=== PATIENT | female | born 1955 | race Caucasian/White ===

== ENCOUNTER 2016-08-12 03:49 | Inpatient (IN) | payer OTHER ==
[~2016-08-12] VITALS: Ht 170.2 cm; Wt 77.1 kg
--- NOTE | 2016-08-12 03:50 | NUR ---
61yo FEMALE TO RM 2 VIA AMB FROM HOME FOUND "NOT ACTING RIGHT TONITE BY HER ." ON ARRIVAL--SPEECH SLOW, VERY TEARFUL, STATING "SHE TOOK TOO MUCH WELBRUTRIN TONITE" EVAL BY DR SIMMS IN RM 2
--- NOTE | 2016-08-12 03:53 | ED PSYCHIATRIC COMPLAINT ---
History of Present Illness General Chief Complaint: Psychiatric Related Complaint Stated Complaint: PSYCH EVAL Source: patient, family, EMS Exam Limitations: no limitations Vital Signs & Intake/Output Vital Signs & Intake/Output Vital Signs Date Time Temp Pulse Resp B/P Pulse O2 O2 Flow FiO2 Ox Delivery Rate 08/12 1045 96.4 76 16 110/65 99 Room Air 08/12 0811 98.4 74 18 121/69 99 Room Air 08/12 0400 96.8 94 16 132/79 95 Room Air Allergies Coded Allergies: MDX - Epinephrine (UNKNOWN 01/30/13) MDX - Fluoxetine (UNKNOWN 01/30/13) MDX - Nitrofurantoin (UNKNOWN 01/30/13) Triage Nurses Notes Reviewed? yes Onset: Gradual Duration: hour(s):, waxing and waning Timing: recent history Severity: moderate Associated Symptoms: anxiety, insomnia, depression HPI: 61 yo woman h/o depression, on several medications, was found by this morning with worsening symptoms. Per the medics, she was found tearful and naked, wandering around the house. She presents to the ED tearful, inconsolable, non verbal. (DEMI BRAMBILA,SHARMAINE Jules) Past History Travel History Traveled to [place] past 21 day No Medical History Any Pertinent Medical History? see below for history Psychiatric: depression Surgical History Surgical History: none Psychosocial History What is your primary language Yi Family History Hx Contributory? No (DEMI BRAMBILA,SHARMAINE Jules) Review of Systems Review of Systems Constitutional: Reports: no symptoms. EENTM: Reports: no symptoms. Respiratory: Reports: no symptoms. Cardiovascular: Reports: no symptoms. GI: Reports: no symptoms. Genitourinary: Reports: no symptoms. Musculoskeletal: Reports: no symptoms. Skin: Reports: no symptoms. Neurological/Psychological: Reports: no symptoms. Hematologic/Endocrine: Reports: no symptoms. Immunologic/Allergic: Reports: no symptoms. All Other Systems: Reviewed and Negative (DEMI BRAMBILA,SHARMAINE Jules) Physical Exam Physical Exam General Appearance: well developed/nourished, mild distress Head: atraumatic Eyes: Bilateral: normal appearance, PERRL, EOMI. Ears, Nose, Throat: normal pharynx, normal ENT inspection, hearing grossly normal Neck: normal inspection, supple Respiratory: normal breath sounds Cardiovascular: regular rate/rhythm Gastrointestinal: soft, non-tender Extremities: normal range of motion Neurological/Psychiatric: tearful, alert but minimally responsive to questions due to tearfulness Appearance/Memory/Insight: appropriate appearance Behavoir/Eye Contact/Speech: cooperative Thoughts/Hallucinations: no apparent hallucination Skin: intact, normal color, warm/dry SAD PERSONS SAD PERSONS Response Value Age <19 or >45 years? yes 1 Depression/Hopelessness? yes 2 Previous Attempts/Psych Care yes 1 Rational Thinking Loss? yes 2 Social Support? has support 0 Total 6 SAD PERSONS Done? yes (DEMI BRAMBILA,SHARMAINE Jules) Progress Differential Diagnosis: anxiety, depression, intoxication Plan of Care: Orders Procedure Date/time Status Regular Diet 08/12 L Complete Regular Diet 08/12 D Active Patient Data - inpatient psych 08/12 1246 Active Admit to inpatient psych 08/12 1246 Active Patient Safety Monitor 08/12 0800 Active Add-on Test (ER Only) 08/12 0630 Active Add-on Test (ER Only) 08/12 0557 Active EKG 08/12 0557 Active ACETOMINOPHEN 08/12 043 Complete SALICYLATE 08/12 043 Complete Patient Safety Monitor 08/12 0400 Active ED CRISIS PSYCH CONSULT 08/12 040 Active URINE DRUG SCREEN FOR ER ONLY 08/12 0353 Complete ETHANOL 08/12 0353 Complete CBC WITHOUT DIFFERENTIAL 08/12 353 Complete BASIC METABOLIC PANEL 08/12 035 Complete Vital Signs 08/12 UNK Active Nursing Misc 08/12 UNK Active Alternative Nursing Therapy 08/12 UNK Active Activity/Ambulation 08/12 UNK Active Laboratory Tests 08/12/16 0435: Anion Gap 13, Estimated GFR > 60, BUN/Creatinine Ratio 16.3, Glucose 101 H, Calcium 10.7 H, CBC w Diff NO MAN DIFF REQ, RBC 4.87, MCV 89.9, MCH 30.3, RDW 13.8, MPV 9.1, Gran % 74.6, Lymphocytes % 19.4 L, Monocytes % 5.6, Eosinophils % 0.1, Basophils % 0.3, Absolute Granulocytes 6.8 H, Absolute Lymphocytes 1.8, Absolute Monocytes 0.5, Absolute Eosinophils 0, Absolute Basophils 0, PUBS MCHC 33.7, Salicylates < 1.0, Acetaminophen < 10.0 L, Serum Alcohol < 10.0 08/12/16 043: Urine Opiates Screen < 100.00, Methadone Screen 41, Barbiturate Screen < 60, Ur Phencyclidine Scrn < 6.00, Amphetamines Screen < 100, U Benzodiazepines Scrn 199 , Urine Cocaine Screen < 50, Urine Cannabis Screen < 5.00 7:20 AM Patient signed out to me by Dr. Batista at change of shift. Pending crisis evaluation. 12:47 PM PATIENT ADMITTED TO [facility]. (JAIME MEHTA MD) Initial ED EKG: normal axis, normal intervals, normal p-waves, normal QRS complex, normal sinus rhythm Hand-Off Endorsed To: JAIME MEHTA MD Endorsed Time: 0700 Pending: consult, labs (DEMI BRAMBILA,SHARMAINE Jules) Departure Departure Disposition: STILL A PATIENT Condition: Stable Referrals: DENTON BRAMBILA,TOD Messer (PCP/Family) Referred to [facility] as new patient No Departure Forms: Customer Survey General Discharge Information Comments 08/12/16, 6:30am... more history obtained from ... pt took unknown quantity of wellbutrin sometime last night.... She is unable to disclose how much or when. Her notes that her pill bottles were NOT empty, but that it would be hard to know how much she took specifically. She remains this am tearful, nearly catatonic, with flat affect. acetaminophen, salicylates added to labs. ekg ordered (which is benign).... pt signed out to dr. mehta at 7am. (DEMI BRAMBILA,SHARMAINE Jules) Departure Time of Disposition: 1246 Clinical Impression Primary Impression: Bipolar I disorder depressed with catatonic features Psych Admission Note Psychiatric Admission: I have seen and evaluated BEV ESTRELLA. I have also reviewed all the pertinent lab results and diagnostic results. BEV ESTRELLA will be admitted to our inpatient Psychiatric unit for treatment and care. (JAIME MEHTA MD)
--- NOTE | 2016-08-12 04:20 | NUR ---
PT EXTREMELY TEARFUL.
[2016-08-12 04:48] LABS: ABSOLUTE BASOPHIL COUNT 0 /CUMM (0.0-0.2); ABSOLUTE EOSINOPHIL COUNT 0 /CUMM (0.0-0.7); ABSOLUTE GRANULOCYTE CT 6.8 /CUMM (1.4-6.5); ABSOLUTE LYMPH COUNT 1.8 /CUMM (1.2-3.4); ABSOLUTE MONOCYTE COUNT 0.5 /CUMM (0.10-0.60); BASOPHIL % 0.3 % (0.0-2.0); EOSINOPHIL % 0.1 % (0-5); GRANULOCYTE % 74.6 % (42.2-75.2); HEMATOCRIT 43.8 % (37-47); MEAN CORPUSCULAR HGB 30.3 PG (27.0-31.0); MEAN CORPUSCULAR HGB CONC 33.7 G/DL (33.0-37.0); MEAN CORPUSCULAR VOLUME 89.9 FL (81.0-99.0); MEAN PLATELET VOLUME 9.1 FL (7.4-10.4); PLATELET COUNT 217 /CUMM (130-400); RBC DISTRIBUTION WIDTH 13.8 % (11.5-14.5); RED BLOOD CELL CT 4.87 /CUMM (4.20-5.40); WHITE BLOOD CELL COUNT 9.1 /CUMM (4.8-10.8)
--- NOTE | 2016-08-12 08:00 | NUR ---
MEAL TRAY ORDERED
--- NOTE | 2016-08-12 08:17 | NUR ---
AWAKE, C/O MOUTH FEELING DRY. ASSISTED TO BATHROOM BY PERSONAL BANKER, UNSTEADY ON FEET. STATES HIS MAY HAVE TAKEN OTHER MEDS, (SHE IS ON 4 PSYCH MEIDCATIONS), UNSURE OF AMOUNT. STATES SHE HAS BEEN DEPRESSED SINCE THIS OF HER SON 32 YEARS AGO, PREVIOUS ATTEMPT AT SUIICDE AFTER HIS , DXD WITH POST- DEPRESSION. HAS BEEN SHOLPITALIZED IN MULTIPLE FAICLITIES OVER THE YEARS, TWICE AT [place].
--- NOTE | 2016-08-12 08:54 | NUR ---
ASSISTED TO BATHROOM WITH SPECIAL EDUCATION MATH TEACHER, HAS VAGUE, FALT AFFECT WITH SHUFFLING GAIT.
--- NOTE | 2016-08-12 10:39 | NUR ---
ASOTED TO BATHROOM, PT INCONTINENT OF URINE. IMELDA CARE GIVEN, CHANGED INTO NEW PAPER SCRUB PANTS.
--- NOTE | 2016-08-12 10:40 | NUR ---
PT AND AWARE OF DELAY IN SEEING A CRM MARKETING ANALYST. REQUESTING ADMISSION HERE, DOES NOT WANT PT TRANSFERRED TO ANY OTHER FACILITY.
--- NOTE | 2016-08-12 12:13 | NUR ---
CRISIS CLIIICIAN HERE TO EVALUATE.
--- NOTE | 2016-08-12 13:11 | ED PSYCH CRISIS CONSULTATION ---
Crisis Consult Basic Assessment Date of Consult: 08/12/16 Responsible Person/Accompanied By: Insurance Authorization: Insurance #1: Insurance name: [facility] MEDICARE PLAN Phone number: Policy number: [id number] Group number: Authorization number: ED Provider: Patient's ED Provider: DEMI BRAMBILA,BRIAN Jules Primary Care Physician: Patient's PCP: TOD CHAWLA MD PCP's Current Psychiatrist: Dr. Jameson Gould Chief Complaint: Psychiatric Related Complaint Patient's Quote: "Something stressful happened" Present Illness: 61 year old female BIBA to ED after called 911 last night. Pt's affect is mostly constricted and she is mostly non-verbal except for some delayed brief responses to this crisis clinicians questions. Pt. believes that she has been in the ED for 2 days and said that something stressful happened the night she came to the hospital. Based on the triage note, this seat cover cutter asked pt. if she had taken more Wellbutrin than she was supposed to and the patient nodded "yes". When asked if she was trying to harm herself, pt. began to cry. This seat cover cutter then talked to pt.s who reports that he has seen this presentation before with his , commenting that pt. has been hospitalized twice before on [facility], the last time 3 years ago. Pt's reports that about a month ago, pt. began decompensating, getting "quieter" and paranoid about the neighbors. He said that they are in the process of selling their house and buying a new one because of his 's problems with the neighbors. Pt's reports that last night he and pt. were to go to two different wakes and on the car ride from one wake to the other, pt. stopped talking and then refused to get out of the car at the next wake. Pt's reports that he drove them home and pt. came into the house, but was still not talking. Pt's reports that they went to bed together, but that he woke up at 1:30am and found pt. half-naked and laying on the bathroom floor, talking to herself. Pt.'s reports that pt. has been taking her psychiatric medications as far as he knows. H reports that she does not use alcohol or use drugs. Patient's Address: [address] [place] [address] Other Phone Number: Who Do You Live With? Family Family/Informants Interviewed: (Fish Woodard) Allergies - Coded Allergies: MDX - Epinephrine (UNKNOWN 01/30/13) MDX - Fluoxetine (UNKNOWN 01/30/13) MDX - Nitrofurantoin (UNKNOWN 01/30/13) Laboratory Results: Laboratory Tests 08/12/165: Anion Gap 13, Estimated GFR > 60, BUN/Creatinine Ratio 16.3, Glucose 101 H, Calcium 10.7 H, CBC w Diff NO MAN DIFF REQ, RBC 4.87, MCV 89.9, MCH 30.3, RDW 13.8, MPV 9.1, Gran % 74.6, Lymphocytes % 19.4 L, Monocytes % 5.6, Eosinophils % 0.1, Basophils % 0.3, Absolute Granulocytes 6.8 H, Absolute Lymphocytes 1.8, Absolute Monocytes 0.5, Absolute Eosinophils 0, Absolute Basophils 0, PUBS MCHC 33.7, Salicylates < 1.0, Acetaminophen < 10.0 L, Serum Alcohol < 10.0 08/12/16429: Urine Opiates Screen < 100.00, Methadone Screen 41, Barbiturate Screen < 60, Ur Phencyclidine Scrn < 6.00, Amphetamines Screen < 100, U Benzodiazepines Scrn 199 , Urine Cocaine Screen < 50, Urine Cannabis Screen < 5.00 Past History Past Medical History Psychiatric: depression Past Surgical History Surgical History: 1 Psychosocial History Strengths/Capabilities: Has periods of good functioning, supportive Physical Limitations (Interventions): none known Psychiatric Treatment History Psych Treatment Psychiatric Treatment Yes Inpatient Treatment Yes Outpatient Treatment Yes Location of Treatment IP - [facility]; OP - Dr. Gould Reason for Treatment Bipolar Disorder, Depression, Psychosis Dates of Treatment - 2012; Dr. Gould - current Response to Treatment good Diagnosis by History: Bipolar Disorder Substance Use/Abuse History Drug Use/Abuse Substances Used/Abused No Substance Abuse Treatment Substance Abuse Treatment Past Substance Abuse [place] No Comments: n/a Current Mental Status Mental Status Orientation: Confused Affect: Constricted Speech: Delayed, Mumbled, Soft Neuro-vegetative: Anhedonia, Helpless, Sleep Disturbance Appearance Appearance- Dress/Hygiene: WNL Behaviors Thought Process: Thought Blocking Thought Content: Paranoid Memory: Impaired Insight: Poor SI/HI Risk Assessment Past Suicidal Ideation/Attempts Yes Past Homicidal Ideation/Att: No Current Homicidal Ideation/Attempts No Degree of Intent: unable to assess Danger To: none Gravely Disabled: Inability, Lack of Insight, Poor Impulse Control, Poor Judgment Risk Factors: access to lethal means, high anxiety/distress, history of suicide atmpts, SA/MH hospitalized Lethality Ratin PTSD Checklist PTSD Done? pt unable to participate ED Management Sitter: Yes Restraints: No DSM5/PS Stressors/Medical Prob Diagnosis' (DSM 5, Stressors, Medical): F31.5 - Bipolar I, MRE depressed w/psychotic features; Stressors - moving; Medical - none Current GAF: 24 Comments: Pt is almost non-verbal, deopressed, paranoid, not functioning Departure Disposition Psych Medical Clearance Date: 08/12/16 Medically Cleared at: 0120 Time Started: 1200 Time Ended: 1245 Psychiatrist Consulted: Brina Gipson MD Date Disposition Established: 08/12/16 Time Disposition Established: 1245 Plan for Disposition - Modality: Inpatient Psychiatry Facility: [facility] Contact: TBD Telephone: TBD Rationale for Disposition: Pt is mostly non-verbal and is paranoid and not functioning; pt is gravely disabled. Type of IP Admission: Voluntary Additional Instructions: Admit to [facility] Referrals DENTON BRAMBILA,TOD Messer (PCP/Family)
--- NOTE | 2016-08-12 13:12 | NUR ---
PT MOVED INTO ROOM 13. MEDICATED WITH 0.5MG ATIVAN PER MAR. PT PRESENTS WITH FLAT AFFECT. AT BEDSIDE ENCOURAGING PATIENT TO TAKE MEDICATION. PT COOPERATIVE. LUNCH TRAY ORDERED BY SITTER PT/SPOUSE OFFER NO ADDITIONAL NEEDS/COMPLAINTS.
--- NOTE | 2016-08-12 14:28 | IP CRISIS DIAG ASSESS PSYCH ---
Diagnostic Assessment Basic Assessment Insurance Authorization: Insurance #1: Insurance name: [facility] Phone number: Policy number: [id number] Group number: Authorization number: [id number], authorized by No Jules for 4 days, 08/12/16 - 08/15/16. UR should call back Yue at [phone]. [phone] on or before 08/16/16. Primary Care Physician: Patient's PCP: DENTON BRAMBILA,TOD Messer PCP's Patient's Quote: "Something stressful happened" Present Illness: 61 year old female BIBA to ED after called 911 last night. Pt's affect is mostly constricted and she is mostly non-verbal except for some delayed brief responses to this crisis clinicians questions. Pt. believes that she has been in the ED for 2 days and said that something stressful happened the night she came to the hospital. Based on the triage note, this mr teacher asked pt. if she had taken more Wellbutrin than she was supposed to and the patient nodded "yes". When asked if she was trying to harm herself, pt. began to cry. This mr teacher then talked to pt.s who reports that he has seen this presentation before with his , commenting that pt. has been hospitalized twice before on [facility], the last time 3 years ago. Pt's reports that about a month ago, pt. began decompensating, getting "quieter" and paranoid about the neighbors. He said that they are in the process of selling their house and buying a new one because of his 's problems with the neighbors. Pt's reports that last night he and pt. were to go to two different wakes and on the car ride from one wake to the other, pt. stopped talking and then refused to get out of the car at the next wake. Pt's reports that he drove them home and pt. came into the house, but was still not talking. Pt's reports that they went to bed together, but that he woke up at 1:30am and found pt. half-naked and laying on the bathroom floor, talking to herself. Pt.'s reports that pt. has been taking her psychiatric medications as far as he knows. H reports that she does not use alcohol or use drugs. Patient's Address: [address] [place] [address] Other Phone Number: Who Do You Live With? Family Feel Safe Where You Live? No (pt is paranoid) Feel Safe in Your Relationship Yes Marital Status: Do You Have Children? Yes Ages? 33 Primary Language? Macedonian Language(s) Spoken At Home: Macedonian Family/Informants Interviewed: (Fish Woodard) Allergies - Coded Allergies: MDX - Epinephrine (UNKNOWN 01/30/13) MDX - Fluoxetine (UNKNOWN 01/30/13) MDX - Nitrofurantoin (UNKNOWN 01/30/13) Consequences of Psych Med Use: n/a Comment: n/a Lab Results: Laboratory Tests 08/12/165: Anion Gap 13, Estimated GFR > 60, BUN/Creatinine Ratio 16.3, Glucose 101 H, Calcium 10.7 H, CBC w Diff NO MAN DIFF REQ, RBC 4.87, MCV 89.9, MCH 30.3, RDW 13.8, MPV 9.1, Gran % 74.6, Lymphocytes % 19.4 L, Monocytes % 5.6, Eosinophils % 0.1, Basophils % 0.3, Absolute Granulocytes 6.8 H, Absolute Lymphocytes 1.8, Absolute Monocytes 0.5, Absolute Eosinophils 0, Absolute Basophils 0, PUBS MCHC 33.7, Salicylates < 1.0, Acetaminophen < 10.0 L, Serum Alcohol < 10.0 08/12/16 0430: Urine Opiates Screen < 100.00, Methadone Screen 41, Barbiturate Screen < 60, Ur Phencyclidine Scrn < 6.00, Amphetamines Screen < 100, U Benzodiazepines Scrn 199 , Urine Cocaine Screen < 50, Urine Cannabis Screen < 5.00 Toxicology Screen Completed? Yes Results: negative Symptoms of Use: n/a Past History Past Medical History Medical History: None/Denies Past Surgical History Surgical History non-contributory Abuse/Trauma History Trauma History/Current Trauma: unknown Victim or Perpretator? victim (n/a) Patient's Age at Time of Trauma: 2 Abuse/Trauma Treatment: unk - pt. mostly non-verbal Legal History Current Legal Status: none Have you ever been arrested? No Number of Arrests: [address] Dates: none Radiology Rn n/a Psychosocial History Strengths/Capabilities: Has periods of good functioning, supportive Physical Limitations (Interventions): none known Psychiatric Treatment History Psych Treatment Psychiatric Treatment Yes Inpatient Treatment Yes Outpatient Treatment Yes Location of Treatment IP - [facility]; OP - Dr. Gould Reason for Treatment Bipolar Disorder, Depression, Psychosis Dates of Treatment [facility] - 2012; Dr. Gould - current Response to Treatment good Diagnosis by History: Bipolar Disorder Risk Factors: access to lethal means, high anxiety/distress, history of suicide atmpts, SA/MH hospitalized Substance Use/Abuse History Drug Use/Abuse minimum 12mo Hx Substances Used/Abused No Substance Abuse Treatment Substance Abuse Treatment Past Substance Abuse [place] No Comments: n/a Sexual History Sexually Active Yes # of partners 1 Sexual Orientation Heterosexual Use of Protection Yes Always Sexual Concerns: none Education History Highest Level of Education: not sure Preferred Learning Style: unable to assess Current Mental Status Mental Status Orientation: Confused Affect: Constricted Speech: Delayed, Mumbled, Soft Neuro-vegetative: Anhedonia, Helpless, Sleep Disturbance Appearance Appearance- Dress/Hygiene: WNL Behaviors Thought Process: Thought Blocking Thought Content: Paranoid Memory: Impaired Insight: Poor SI/HI Risk Assessment - Minimum 6mo History- Past Suicidal Ideation/Attempts Yes Current Suicidal Ideation/Att No (unable to assess/pt nonverbal) Past Homicidal Ideation/Att: No Current Homicidal Ideation/Attempts No Degree of Intent: unable to assess Danger To: none Gravely Disabled: Inability, Lack of Insight, Poor Impulse Control, Poor Judgment Risk Factors: access to lethal means, high anxiety/distress, history of suicide atmpts, SA/MH hospitalized Lethality Ratin Needs/Init [place] Plan/Goals: psychiatric/medication eval; indiv, group, family therapy; d/c planning and placement AUDIT-C Questionnaire: AUDIT-C Questionnaire: Response Value ETOH use in the past year Never 0 # drinks typical/day Doesn't Drink 0 6 or > drinks per occasion Never 0 Total 0 DSM5/PS Stressors/Medical Prob Diagnosis' (DSM 5, Stressors, Medical): F31.5 - Bipolar I, MRE depressed w/psychotic features; Stressors - moving; Medical - none Current GAF: 24 Comments: Pt is almost non-verbal, deopressed, paranoid, not functioning
--- NOTE | 2016-08-12 14:42 | NUR ---
PT IN ROOM WITH SPOUSE, EATING FINGER FOOD TRAY AT THIS TIME. SITTER AT DOORWAY.
--- NOTE | 2016-08-12 16:27 | NUR ---
PT MEDICATED PER EMAR. PT NOTED TO HAVE VERY FLAT AFFECT. PT MOVING VERY SLOWLY BUT WAS ABLE TO SIT UP INDEPENDENTLY.
--- NOTE | 2016-08-12 16:33 | NUR ---
REPORT GIVEN TO JANET DÍAZ. DISTRIBUTION CALLED FOR TRANSPORT. SECURITY CALLED TO ESCORT.
[2016-08-12 17:08] VITALS: BP 128/68
--- NOTE | 2016-08-12 18:01 | NUR ---
Pateint admitted to [facility]PS from ED. Patient contricted and quiet during assessment and was present to assist. Patient able to answer some questions with some propting. Patient functional and independent with ADL with tasks but asks for help. PAtient is alert, slow to respond vague. Affect flat. Skin clean dry and intact. Ambulates with slow, steady gait. Patient refused walker. Looking forward to assisting Tameka with mental health.
[2016-08-12] MEDS ORDERED: BUPROPION HCL75 M1 PO (22:02)
[2016-08-12] MEDS ORDERED: MIRTAZAPINE45 M1 PO (22:05)
[2016-08-12] MEDS ORDERED: ABILIFY15 M1 PO (22:09)
[2016-08-12] MEDS ORDERED: ALPRAZOLAM0.5 M4 PO (22:11)
--- NOTE | 2016-08-12 23:36 | History & Physical ---
General Information and HPI MD Statement: I have seen and personally examined BEV ESTRELLA and documented this H&P. The patient is a 61 year old F who presented with a patient stated chief complaint of [medical evaluation]. 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 Then she remembers an episode of overdose for which she was hospitalized, and then starts crying. She does not provide any details about history, ROS. She is admitted for severe depression with worsening symptoms. Allergies/Medications Allergies: Coded Allergies: MDX - Epinephrine (UNKNOWN 01/30/13) MDX - Fluoxetine (UNKNOWN 01/30/13) MDX - Nitrofurantoin (UNKNOWN 01/30/13) Home Med list Alprazolam 0.5 MG TABLET 1 MG PO DAILY ANXIETY (Reported) Aripiprazole (Abilify) 15 MG TABLET 15 MG PO DAILY MOOD STABILITY (Reported) Bupropion HCl 75 MG TABLET 75 MG PO DAILY MOOD STABILITY (Reported) Mirtazapine 45 MG TABLET 15 MG PO DAILY MOOD STABILITY (Reported) Compliance With Home Meds: UNKNOWN Past History Travel History Traveled to [place] past 21 day No Medical History Neurological: NONE EENT: NONE Cardiovascular: NONE Respiratory: NONE Gastrointestinal: NONE Hepatic: NONE Renal: NONE Musculoskeletal: falls Psychiatric: depression Endocrine: NONE Blood Disorders: hemophilia Cancer(s): NONE [employer] HOME/Reproductive: NONE Isolation History: Standard Pneumonia Vaccine: 05/15/16 Influenza Vaccine: 05/15/16 Surgical History Surgical History: none Past Family/Social History Psychosocial History Past Psychosocial History Unobtainable at this time Functional Ability ADLs Independent: dressing, eating, toileting, bathing. Ambulation: independent Review of Systems Review of Systems Constitutional: Denies: see HPI. EENTM: Denies: see HPI. Cardiovascular: Denies: see HPI. Respiratory: Denies: see HPI. GI: Denies: see HPI. Genitourinary: Denies: see HPI. Musculoskeletal: Denies: see HPI. Skin: Denies: see HPI. Neurological/Psychological: Denies: see HPI. Hematologic/Endocrine: Denies: see HPI. Exam & Diagnostic Data Last 24 Hrs of Vital Signs/I&O Vital Signs Date Time Temp Pulse Resp B/P Pulse O2 O2 Flow FiO2 Ox Delivery Rate 08/12 1708 98.0 77 128/68 08/12 1627 98.0 84 18 127/65 95 08/12 1045 96.4 76 16 110/65 99 Room Air 08/12 0811 98.4 74 18 121/69 99 Room Air 08/12 0400 96.8 94 16 132/79 95 Room Air Intake & Output 08/12 0000 08/12 0800 08/12 1600 Intake Total Output Total 400 Balance -400 Output, Urine 400 Patient 77.111 kg Weight Physical Exam General Appearance Alert, Oriented X3, Cooperative Skin No Rashes, No Breakdown HEENT Atraumatic, PERRLA, EOMI Neck Supple, No JVD, No thryomegaly, +2 Carotid Pulse wo Bruit Lymphatic Cervical nl Cardiovascular Regular Rate, Normal S1, Normal S2, No Murmurs, Gallops Lungs Clear to Auscultation, Normal Air Movement Abdomen Normal Bowel Sounds, Soft, No Tenderness, No Hepatospenomegaly, No Masses Neurological Exam Findings: Normal Gait, Normal Speech, Strength at 5/5 X4 Ext, Normal Tone, Sensation Intact, Cranial Nerves 3-12 NL, Reflexes 2+ Cranial Nerves II through XII: Examined and intact Extremities No Clubbing, No Cyanosis, No Edema, Normal Pulses, No Tenderness/ Swelling Vascular Normal Pulses, Pulses Symmetrical Last 24 Hrs of Labs/Krunal: Laboratory Tests 08/12/165: Anion Gap 13, Estimated GFR > 60, BUN/Creatinine Ratio 16.3, Glucose 101 H, Calcium 10.7 H, CBC w Diff NO MAN DIFF REQ, RBC 4.87, MCV 89.9, MCH 30.3, RDW 13.8, MPV 9.1, Gran % 74.6, Lymphocytes % 19.4 L, Monocytes % 5.6, Eosinophils % 0.1, Basophils % 0.3, Absolute Granulocytes 6.8 H, Absolute Lymphocytes 1.8, Absolute Monocytes 0.5, Absolute Eosinophils 0, Absolute Basophils 0, PUBS MCHC 33.7, Salicylates < 1.0, Acetaminophen < 10.0 L, Serum Alcohol < 10.0 08/12/16 0430: Urine Opiates Screen < 100.00, Methadone Screen 41, Barbiturate Screen < 60, Ur Phencyclidine Scrn < 6.00, Amphetamines Screen < 100, U Benzodiazepines Scrn 199 , Urine Cocaine Screen < 50, Urine Cannabis Screen < 5.00 Assessment/Plan Assessment: 61 F, admitted for severe depression and bipolar disorder. Patient is not providing much in details. From review of charts, patient does not appear to have any major medical problems. Even though patient mentions that she may be pre-diabetic, and on diet control only. Random blood sugar in acceptable range. She has history of hospitalization and intubation for overdose. #1 severe depression: Agree with psychiatrist As Ranked By This Provider Problem List: 1. Depression 2. Bipolar I disorder depressed with catatonic features Miscellaneous Miscellaneous Documentation Attending Case Discussed With: MAMIE BRAMBILA,SHARMAINE Primary Care Physician: DENTON BRAMBILA,TOD Messer Patient sees these Specialists psychiatrist Level of Patient Care: SUKHI Pacheco
--- NOTE | 2016-08-13 06:16 | Admission Certification ---
Admission Certification Certification Statement - As attending physician, I certify that at the time of - admission, based on clinical presentation, severity of - symptoms, need for further diagnostic testing and - therapeutic interventions, and risk of adverse outcomes - without in-hospital treatment, in my clinical assessment, - this patient requires an acute hospital stay for a minimum - of two nights or longer. I have also considered psychsocial - factors such as support system, advanced age, financial - issues, cognitive issues, and failed out-patient treatments, - past re-admission history, safety of patient, and lack of - compliance as applicable. Specific rationale supporting this admission is: major depression
[2016-08-13 07:48] VITALS: BP 127/74
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
[2016-08-13 12:20] VITALS: BP 130/78
--- NOTE | 2016-08-13 12:20 | NUR ---
Pt is present in the community, alert and orinted X 4, compliant with medication and group therapies. Pt has been solitary/Reclusive in the community, appears very depressed. Pt request to meet with [place] Supervisor who met with her today, she affirms the meeting was successful and re-assuring. Vital sign is stable and within the acceptable range, pt denies thought of self-harm and to someone else.
--- NOTE | 2016-08-13 14:35 | CPS MD/APRN INITIAL ASSE PSYCH ---
Psychiatric Admission Dental Office Coordinator's Note Reviewed: Yes Patient Seen and Examined: Yes Identifying Information: 61 yo MWF with bipolar d/o admitted on 08/12/16, referred by ER. Chief Complaint: Likely overdosed with Wellbutrin. Possibly appeared catatonic. Decline in mood and functioning. Reaction to Hospitalization: Feels very good about being here. History of Present Illness Onset of Illness: Bipolar d/o dx'd ~age 21. Worse this episode x 2 months. Circumstances Leading to Admission: called 911. Patient was minimally verbal when first seen by crisis. Likely overdosed with Wellbutrin MICROBIOLOGICAL LAB TECHNICIAN. reported patient began to decompensate about 1 month ago, at which point she became quiet and paranoid about the neighbor(s). The couple is moving, reportedly in part related to patient's feeling about the neighbor(s). The couple planned to attend 2 wakes on the night of 08/11/16 but patient refused to get out of the car for the second wake. Problem(s) Justifying Need for Admission: Psychosis. Decreased functioning. Other HPI: Patient rerports that for like 2 months, she has been a little bit lazy. Was crocheting for kids. Thinks that she sat too much and wasn't exercising or taking much interest in anything else. Gained a little weight. Stopped taking one of her medications, she thinks Remeron, because she was feeling too groggy. Reports that she has a lot of stress in her life, probably too much. 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 Patient and her had 2 wakes to attend on 08/11/16, one for her 's cousin, who had saved from drowning, and the other for brother's ex- 's father. Patient reports that she and her are moving to a [facility], as she has had problems with current neighbor and there is not enough privacy at her present home. Reports that sometimes patient sees things that give her paranoia about people. She feels that people talk about her and she goes into a paranoid state. Nurse reports that the patient doesn't want to talk much but is talking. Appearing solemn. Ate and slept. Past Psychiatric History Past Diagnosis(es)- if any: Bipolar d/o with psychosis. Past Precipitating Factors- if any: Reportedly marital problems (per old records). - Include inpatient and outpatient treatment Treatment History: Sees Dr. Jameson Gould. Past tx at [facility]. Inpatient 7-10x, including [facility] x 2, [facility] 2-3x, [facility]. History of Suicide Attempts or Gestures Patient reports this was her 4th suicide attempt. Substance Abuse History: Denies tobacco. Occ. alcohol, 1 sip of beer 2x/month. No drugs. Allergies: Coded Allergies: MDX - Epinephrine (UNKNOWN 01/30/13) MDX - Fluoxetine (UNKNOWN 01/30/13) MDX - Nitrofurantoin (UNKNOWN 01/30/13) Home Med List: Wellbutrin 75 mg daily. Xanax prn. Abilify 15 mg qhs. Remeron 45 mg qhs. Past tx with Depakote, she believes, made her sedated. She believe lithium made her unable to hear/understand what others were saying. - Include any medical condition(s) that may - impact the patient's recovery/remission Past Medical History: Borderline DM, diet-controlled. Varicose veins on legs. Past History Medical History Neurological: NONE EENT: NONE Cardiovascular: NONE, Reports varicose veins on legs. Respiratory: NONE Gastrointestinal: NONE Hepatic: NONE Renal: NONE Musculoskeletal: falls Psychiatric: depression Endocrine: NONE, Reports borderline DM, diet-controlled. Blood Disorders: hemophilia Cancer(s): NONE DRAFTER SEISMOGRAPH/Reproductive: NONE Isolation History: Standard Pneumonia Vaccine: 05/15/16 Influenza Vaccine: 05/15/16 Surgical History Surgical History: non-contributory Psychiatric Family/Social Hx Family History Psychiatric Illness: Mother, depression, not in tx. Substance Use: Denies. Suicides: Denies. Social History Living Situation: Lives with in [place]. The couple is moving to a [facility]. Significant Relationships (family/friends): . Has 1 son and 2 grandchildren. 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 Legal: One arrest for incident with neighbor. Harassment charge that became a felony. Spent a brief time in alf. Healthly Behaviors Screening Tobacco Screening Tobacco Use from ED Docu: Never used - If tobacco counseling indicated - the following topics are required. - #1 Recognizing dangerous situations. - #2 Coping Skills. - #3 Basic information about quitting. Status of Tobacco Cessation Counseling: N/A B/C NO TOB USE Cessation Med Status: No Tobacco Use last 30d Alcohol Screening - ETOH screen POS if BAL >=80 or Audit-C>= M4/F3 Audit-C Score from Diag Assess: 0 Blood Alcohol Level: Laboratory Tests 08/12 435 Toxicology Serum Alcohol (<10 MG/DL) < 10.0 Alcohol Use Screening Results: Neg per Audit C &/or BAL - If ETOH counseling indicated - the following topics are required. - #1 Express concern about the patient's - drinking at unhealthy levels, include informing - of national norms for moderate drinking: - men <= 14 drinks/week, max 4 drinks/occasion - women <= 7 drinks/week, max 3 drinks/occasion - #2 Providing feedback, including linking alcohol to - negative physical effects (liver injury, hypertension) - negative emotional effects (relationship problems and - depression) - negative occupational consequences (reduced work - performance) - #3 Advising the patient to abstain from alcohol or - to drink below national norms for moderate drinking - (as listed above). Status of ETOH Use Counseling: N/A B/C NO ETOH Use Metabolic Screening - Screen if on a Neuroleptic Medication - Metabolic screening should include: - Blood Pressure, BMI, Glucose or Hgb A1c, & a - Lipid profile from within the past 365 days. Metabolic Screening Lab () Not Applicable, patient not on a neuroleptic. OR () Patient on a neuroleptic(s) . Enter below results for Glucose or Hemoglobin A1C, and lipid panel if obtained during the last 365 days. BMI: 26.600 Blood Pressure: 130/78 Laboratory Results (If applicable): Lab Glucose 101 mg/dL H 08/12/16 0435 Exam and Plan Mental Status Examination Ambulation Status: Ambulatory, currently sitting in a chair. Appearance: Casually dressed, overweight WF. Attitude towards examiner: Polite and cooperative. Psychomotor activity: Mild psychomotor retardation. Not agitated. Behavior: WNL. Unremarkable. Quality of speech: Soft-spoken. Somewhat slow to give answers. Affect: Calm, blunted to depressed. Mood: "Very good, I'm just a little bit groggy." Appears A&A. Sad ~5/10. Anxiety "maybe a 3"/10. Reports that she can get euphoric at times. Denies feeling hopeless, helpless or worthless. Feels guilty and became tearful when discussing this. Guilty is for things she may have done. Thought she was up in a cloud and that she called the police. Also believes she causes a ruckus. Suicidal Ideation: Believes that she OD'd with Wellbutrin, but vague, MICROBIOLOGICAL LAB TECHNICIAN. Denies active and passive SI now. Homicidal Ideation: Denies. Hallucinations: Had AHs at times at home MICROBIOLOGICAL LAB TECHNICIAN but not here. Denies VHs. Paranoid/Delusional Material: Denies PI now. Denies magical macias. Difficulties with thought organization: Slowed but organized. Insight: Limited. Judgment: Poor but improving. Orientation: Ox3. Cognition: Slowed. Memory Function: Grossly WNL. Estimate of intellectual functioning: Average. Assets/Strengths Patient Identified Assets/Strengths: Outgoing, whereas she used to be introverted. Impression/Plan Impression and Plan: Patient presents with exacerbation of her illness in the context of multiple stressors. - Include all active medical diagnosis that require tx DSM 5 Diagnosis(es): Bipolar d/o, depressed, with psychotic features. - Initial Tx Plan for Active Psych & Medical Conditions Treatment Plan: Monitor for safety, psychosis and mood disorder. Additional information is needed from collaterals. 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 Will now reduce dose to 0.5 mg b.i.d. I increased Abilify to 20 mg qhs. I continued Remeron at 45 mg qhs. I have stopped Wellbutrin, which patient reportedly overdose on. Consider addition of VPA or CBZ. - Factors that would help patient function - in a less restrictive setting. Factors: Not suicidal. Not psychotic.
[2016-08-13 15:44] VITALS: BP 116/72
[2016-08-13 20:14] VITALS: BP 132/73
--- NOTE | 2016-08-13 22:21 | NUR ---
Pt mood is stable flat on her affect, little confusion was observed during the shift. Pt is compliant and cooperative with the staff. Vital signs are stable appetite is good. Will continue to monitor the pt overnight.
[2016-08-14 07:45] VITALS: BP 125/70
[2016-08-14 12:10] VITALS: BP 119/75
--- NOTE | 2016-08-14 13:49 | NUR ---
PT IS COMPLIANT AND COOPERATIVE. PT IS OUT IN COMMUNITY INTERACTING WELL WITH OTHERS. PT IS A LITTLE QUIET WITH STAFF AND DURING GROUP BUT IS SOICAL WITH PEERS. PT DID ATTEND BOTH GROUPS TODAY. PT MOOD IS STABLE WTIH A FLAT AFFECT. PT DENIES SI
--- NOTE | 2016-08-14 14:04 | SOCIAL WORKER PROG NOTE PSYCH ---
Social Work Progress Note Progress Note Pt is calm, reports there has been some med changes and she is sleepy/ She spoke about her grandchildren and how it may be too much to watch them all the days of the week, and that she had a conversation with her son to discuss a change of her availibility.Pt is future focused on upcoming move to [place], and she told a story about hair color. I made a call to her inquiring about setting up a family meeting.
--- NOTE | 2016-08-14 14:15 | CP SOUTH PROGRESS NOTE PSYCH ---
Psych (Inpt) Progress Note Progress Note Include the following elements, when applicable: Involvement in the active treatment of the patient with behavioral observations of the patient and the patient's response to the treatment. Review of the ongoing treatment process in the context of the treatment plan. Indication of how multi-disciplinary staff members are carrying out the treatment plan. Plans for future interventions and recommendations for revision of the treatment plan. Liaison with other physicians/providers. Progress Note: Case and treatment plan discussed in team meeting. Staff reports that the patient seemed lost and somewhat confused. Wandered into others' rooms. Has needed redirection. Went to group. Not looking paranoid. Denying suicidal ideation. Vague and somewhat withdrawn. Patient seen at 11:20 AM. States she feels awful, that she cannot even think straight. Despite this, patient's thinking seems faster than yesterday. She seems a little distraught and perplexed, although I did see her smile once. States she feels too sedated. She appears awake and alert, maybe a little subdued. Reports she had a good visit with and friend. Affect is calm and depressed. Mood is sad at 8/10. States she hardly has any anxiety, maybe 2 -3/10. Denies feeling hopeless, helpless or worthless. Feels guilty little bit. Denies active and passive suicidal ideation. Denies homicidal ideation. Denies auditory and visual hallucinations. Reports having paranoia, maybe at a 2/10 and then stated maybe she is not paranoid, just concerned about the future. Reports she slept well. Appetite is very good. Energy is low. Patient is asking about discharge. Patient told me that in the past, she was told she has a split personality. IMPRESSION: Slow progress. Continue present treatment plan. At this point, we will reduce Remeron dose to 30 mg q.h.s. and Ativan dose to 0.25 mg b.i.d. because of complaint of sedation.
[2016-08-14 15:56] VITALS: BP 125/72
[2016-08-14 19:51] VITALS: BP 142/77
--- NOTE | 2016-08-14 20:13 | NUR ---
PT IS COMPLIANT AND COOPERATIVE. PT HAS BEEN VISIBLE IN THE COMMUNITY INTERACTING WITH PEERS AND STAFF. PT IS STABLE AND HAD A FULL RANGE AFFECT. NO COMPLAINTS OFFERED AT THIS TIME.
--- NOTE | 2016-08-15 04:34 | NUR ---
SLEPT WELL OVERNIGHT, UP AND FULLY DRESSED AT 0235, LOOKING A BIT CONFUSED, BUT RETURNED TO BED WITHOUT PROBLEM.
[2016-08-15 07:51] VITALS: BP 139/79
--- NOTE | 2016-08-15 10:51 | SOCIAL WORKER PROG NOTE PSYCH ---
Social Work Progress Note Progress Note Family session to be over the phone call home first [phone] or Fish ( ) on cell [phone]. 10am 08/16/16.
--- NOTE | 2016-08-15 10:57 | SOCIAL WORKER PROG NOTE PSYCH ---
Social Work Progress Note Progress Note Provided clinical for insurance review to Yue at [employer] [phone] ext [phone] the information was left on her voicemail.
[2016-08-15 12:18] VITALS: BP 143/84
--- NOTE | 2016-08-15 13:50 | NUR ---
PT IS COMPLIANT AND COOPERATIVE. MOOD IS STABLE WITH A FLAT AFFECT. PT DENIES SI AT THIS TIME, NO COMPLAINTS OFFERED. NO SIGNS OF ACTIVE PSYCHOSIS NOTED. PT IS PRESENT IN THE COMMUNITY, HAS SOME INTERACTION WITH PEERS AND STAFF. PT IS ATTENDING GROUPS. VITALS ARE STABLE, APPETITE IS GOOD.
--- NOTE | 2016-08-15 14:52 | CP SOUTH PROGRESS NOTE PSYCH ---
See Addendum Psych (Inpt) Progress Note Progress Note Include the following elements, when applicable: Involvement in the active treatment of the patient with behavioral observations of the patient and the patient's response to the treatment. Review of the ongoing treatment process in the context of the treatment plan. Indication of how multi-disciplinary staff members are carrying out the treatment plan. Plans for future interventions and recommendations for revision of the treatment plan. Liaison with other physicians/providers. Progress Note: [I discussed this patient's progress to date, current mental status, treatment process in the context of the treatment plan, and discharge planning with staff/ team in the daily morning inpatient team meeting. I also met with the patient myself in individual session.] SUBJECTIVE: "I feel safe here." OBJECTIVE: Current Medications Sig/Gideon Start time Last Medication Dose Route Stop Time Status Admin Acetaminophen 650 MG Q6P PRN 08/12 1300 AC PO Al Hydroxide/Mg 30 ML Q4-6 PRN PRN 08/12 1300 AC Hydroxide PO Aripiprazole 20 MG AT BEDTIME 08/12 2200 AC 08/14 PO 2131 Lorazepam 0.25 MG 0800 08/16 0800 AC PO 08/16 0801 Lorazepam 0.25 MG BID 08/14 2200 AC 08/15 PO 08/15 2300 0755 Magnesium Hydroxide 30 ML AT BEDTIME PRN 08/12 1300 AC 08/13 PO 1206 Mirtazapine 30 MG AT BEDTIME 08/14 2200 AC 08/14 PO 2131 Vital Signs Date Time Temp Pulse Resp B/P Pulse O2 O2 Flow FiO2 Ox Delivery Rate 08/15 1218 81 143/84 08/15 0751 97.2 80 139/79 08/14 1951 98.1 92 142/77 08/14 1556 81 125/72 ASSESSMENT: Patient is a 61-year old , female with a history of Bipolar disorder who was admitted to [facility] on 08/12/16 from ED for a decline in fuctioning, and ? overdose on Wellbutrin and ? catatonia. Since admission, patient's Remeron was decreased from 45mg at bedtime to 30mg at HS; and Abilify 15mg every morning was increased to 20mg every morning. Xanax was stopped, and Ativan taper was started. This was this racebook writer's first encounter with the patient on [facility], and met with the patient together with Cyndy Benton LCSW. On encounter, the patient reported improved energy since Remeron was decreased, and Ativan was gradually decreased over few days. The patient engaged in conversation with minimal prompting. Speech was soft, rate and tone were mostly normal in rate. Thought process appeared tangential, and she reported racing thoughts. Affect and mood appeared labile, observed crying episodically throughout session for unclear reasons. She spoke loosely about friends and family, and occasionally had no direction in her conversation. She required spontaneous redirection by this racebook writer and Cyndy Benton LCSW to answer some questions. Thought process appeared forgetful at times, and briefly slow to process. Thought content was overall appropriate. Patient reported depression of 2/10 (10 being the worst) and anxiety of 4/10 (10 being the worst). She reported sleep was good overall, and reported awakening only to use the bathroom. She reported appetite was good. She denied auditory and visual hallucinations. There was no evidence of paranoia or of mohit delusions. She denied passive and active suicidal ideation, plans and intent. She denied homicidal ideation. Patient reported tolerating all medications well, and denied untoward medication effects. She reported past trial of Depakote (dates unknown), but reported she had been on this for a year. She reported increased sedation on this medication and was not willing to retrial it for mood stabilization. Discussed with the patient the option of Tegretol as a mood stabilization agent. Reviewed the risk/ benefit/SE profiles of Tegretol with the patient who verbalized understanding of education and was agreeable to trial. No LFTs were completed on admission to [facility]. Will order for tomorrow morning, and if wnl, will start. Patient agreeable to AM labs. PLAN: 1. Continue monitoring the patient on unit for mood, psychosis, and safety. 2. Continue current medications. 3. LFT draw ordered for 08/16/16 at 0600. If wnl, will start Tegretol 200mg BID for mood stabilization tomorrow. TSH also ordered. 4. Phone conference with patient's , patient and primary team at 10AM tomorrow morning. 5. Dispo planning per primary team.
[2016-08-15] MEDS ORDERED: ABILIFY10 M1 PO (15:50)
[2016-08-15 15:52] VITALS: BP 148/86
--- NOTE | 2016-08-15 16:27 | SOCIAL WORKER TX PLAN PSYCH ---
See Addendum Treatment Plan - Please Document: - Evidence that there is ongoing collaboration between - the patient and the interdisciplinary team, - including the patient's active participation and - responsibility for engaging in the treatment regimen, - and that the treatment plan is individualized and - relevant to the patient's conditions. - Treatment plan should reflect documentation indicating - that all active therapeutic efforts are included. Strengths/Capabilities: The patient appears to have a supportive . Physical Limitations (Interventions): none known Patient Identified Trmt Goals: I want to feel better Discharge Plan: IOP Problem/Goals #1 Problem #1: suicidal ideation Goal (Short Term): Today I will attend 2 groups Today I will identify 2 stressors Today I will identify 2 positive supports Today I will work on recognizing 3 emotions I am feeling Goal (Merchandising Consultant): Be free of suicidal thoughts/attempts Develop 3 coping skills to deal with depression Identify 3 positive support systems to call in crisis Develop a crisis plan with 3 srivastava people Identify 2 positive traits per week about myself Identify 2 things I have to look forward to Identify 2 positive people in my life and 1 thing I appreciate about them Interventions: Learn ways to manage depressive symptoms accordingly and identify positive supports to manage life stressors and mood fluctuations. Modalities: Encourage groups, education on depression, provide CBT treatment, family meeting. DSM5/PS Stressors/Medical Prob Diagnosis' (DSM 5, Stressors, Medical): F31.5 - Bipolar I, MRE depressed w/psychotic features; Stressors - moving; Medical - none Current GAF: 24 Treatment Team - Responsibilities of members of the treatment team include: - Medication Management- MD or SKEIN MERCERIZING MACHINE OPERATOR - Medication Administration and Monitoring- Nurse - Group Therapy- Occupational Therapist - 1:1 Therapy,Disch Planning,family involvement-Casket Trimmer
--- NOTE | 2016-08-15 16:30 | SOCIAL WORKER PROG NOTE PSYCH ---
Social Work Progress Note Progress Note SW met with patient for the first time today with Eduarda Pleitez APRN. Patient presented with labile mood, tearful at times. Patient appeared to be experiencing some thought blocking, racing thoughts and tangential at time. Patient appeared to be very concerned with many things on the outside such as family issues. She reported no current concerns within the hospital. She shared about a hx of paranoia and fears. She denied any paranoia in the hospital and reported feeling safe here. Together we discussed the possibility of adding a mood stablizer to her medication regiment. Patient shared that in the past she had been on Depakote and reported feeling sedated from it and had a negative experience on it. Eduarda discussed other alternatives which patient was open to. We have a phone conference scheduled tomorrow at 10am with her due to his inability to come in physically for meeting due to scheduling conflicts. Together we will plan to discuss her current treatment plan, his concerns and plan for discharge.
[2016-08-15 20:01] VITALS: BP 150/88
--- NOTE | 2016-08-15 22:19 | NUR ---
PT PRESENT IN COMMUNITY, INTERACTING WITH PEERS AND STAFF. PT PLEASANT, POLITE, COMPLIANT AND COOPERATIVE. PT MORE OUTGOING AND ENGAGING. PT REPORTS THAT SHE RECOGNIZES THAT AT TIMES SHE IS PARANOID. PT CONVERSED AT LENGTH WITH THIS MHW, SOFTSPOKEN BUT REMAINED TOPICAL AND APPROPRIATE. PT MOOD STABLE - FULL RANGE AFFECT. NO COMPLAINTS OFFERED.
[2016-08-16 08:09] VITALS: BP 131/73
--- NOTE | 2016-08-16 09:09 | CP SOUTH PROGRESS NOTE PSYCH ---
Psych (Inpt) Progress Note Progress Note Include the following elements, when applicable: Involvement in the active treatment of the patient with behavioral observations of the patient and the patient's response to the treatment. Review of the ongoing treatment process in the context of the treatment plan. Indication of how multi-disciplinary staff members are carrying out the treatment plan. Plans for future interventions and recommendations for revision of the treatment plan. Liaison with other physicians/providers. Progress Note: [I discussed this patient's progress to date, current mental status, treatment process in the context of the treatment plan, and discharge planning with staff/ team in the daily morning inpatient team meeting. I also met with the patient myself in individual session.] SUBJECTIVE: "I'm feeling a lot better, I feel back to myself." OBJECTIVE: Current Medications Sig/Gideon Start time Last Medication Dose Route Stop Time Status Admin Acetaminophen 650 MG Q6P PRN 08/12 1300 AC PO Al Hydroxide/Mg 30 ML Q4-6 PRN PRN 08/12 1300 AC Hydroxide PO Aripiprazole 25 MG 2200 08/16 2200 UNVr PO Aripiprazole 20 MG AT BEDTIME 08/12 2200 DC 08/15 PO 2209 Lorazepam 0.25 MG 0800 08/16 0800 DC 08/16 PO 08/16 0801 0929 Lorazepam 0.25 MG BID 08/14 2200 DC 08/15 PO 08/15 2300 2209 Magnesium Hydroxide 30 ML AT BEDTIME PRN 08/12 1300 AC / PO 1206 Mirtazapine 30 MG AT BEDTIME 08/14 2200 AC 08/15 PO 2209 ASSESSMENT: Met with the patient today, who appeared alert and oriented to person, place, time and situation. She reported "feeling a lot better, I feel back to myself." Speech was soft, normal in rate and tone. Affect appeared flat. Thought process appeared somewhat improved from yesterday, and less circumstantial. Thought content was appropriate. There was no evidence of paranoia, or of mohit delusions. She denied auditory and visual hallucinations. Mood remained somewhat labile, patient observed tearful during session when talking about her mother with dementia and father. No evidence of impulsive/risky behaviors while on unit. Patient was able to gain control of her mood by processing these relationships. She reported depression of 1-2/10 (10 being the worst), and anxiety of 0/10 (10 being the worst). She reported improvement in energy. Reported sleep and appetite were good. She appeared future oriented, and reported looking forward to moving into a new townhouse/condo with her . She reported having the goal to take a knitting class, once she is discharged as her mother who has dementia is unable to teach her. She denied active/passive suicidal ideation, plans and intent. She denied homicidal ideation. She denied feeling hopeless, helpless, and worthless. Patient reported tolerating all medications well and denied untoward medication effects. AIMS =0. Reviewed with the patient again the risk/benefit/SE profiles of Tegretol. Given concern of Tegretol potentially reducing efficacy of Abilify, which was increased during initial [facility] admission from 15mg to 20mg, which patient has responded well to (as evidenced by improved mood and thought process ) I will hold of on starting Tegretol, and increase Abilify to 25mg daily for further mood stabilization. HAWA obtained for Dr. Jameson Gould, patient's outpatient psychiatrist. Per collateral: Tameka carries a history of Bipolar disorder, and per Dr. Gould , her depression had been stabilized during their last encoutner. He reported that on his last encoutner with her (date unknown to him) she appeared very tense, socially phobic, fearful and paranoid. He reported that at some point during her treatment, she had expressed fear of her and mentioned possibly breaking up from him. Dr. Gould reported it was unclear what the circumstances had been then. He reported that the patient had been on a maximum daily dose of Abilify 20mg in the past, which she had tolerated well. Dr. Gould was in favor of maximizing Abilify dose for mood stabilization and psychosis. PLAN: 1. Continue monitoring the patient on unit for safety, mood and psychosis. 2. Increase Abilify to 25mg daily. Monitor response to increased dose. 3. Continue current meds. 4. Dispo planning per primary team.
[2016-08-16 12:14] VITALS: BP 136/70
--- NOTE | 2016-08-16 13:16 | SOCIAL WORKER PROG NOTE PSYCH ---
Social Work Progress Note Progress Note Patient had phone conference this AM with this global technical writer, Eduarda Pleitez APRN and her , Teodoro. Patients expressed minimal concerns/ complaints at present. He reported feeling that patient has made improvements since entering the hospital and he looks forward for her to return home. He expressed concern that she will go into anothe episode similar to this in the future due to her hx of multiple depressed episodes. He expressed his desire to be a support system for patient and understanding that patient will need less responsibilities when she returns home. He is planning to take over more of the babysitting responsibility in order to not overwork her. They are planning to go through with the move over the next month and he did express his desire for her to be apart of the moving process. Patients also agreed to help manage patients medications post discharge from the hospital and is in agreement with patient continuing medication regiment. He expressed his only concern is sedation from medication and wanting patient to be alert throughout the day. Patient has hx of feeling sedated on Depakote and he has fear of her returning to this state on medication. He was also advised that instead of adding a mood stabalizer to her medication, we may only increase the Abilify dose due to patient showing marked improvements on it. Patient is aware that med adjustments can also happen on outpatient basis and she has agreed to follow through with IOP at post discharge from hospital.
--- NOTE | 2016-08-16 13:18 | NUR ---
Present on the unit however is withdrawn and appears guarded, + sleep, is attending groups, + appetite, mood stable with flat affect.
[2016-08-16 16:23] VITALS: BP 128/78
[2016-08-16 19:52] VITALS: BP 128/69
--- NOTE | 2016-08-16 20:15 | NUR ---
PT REPORTED COUGH WITH PHLEGM THAT SHE IS UNABLE TO CLEAR FROM HER THROAT. "IT FEELS LIKE IT'S STUCK." NO OTHER SOMATIC C/O. NO SOB NOTED/REPORTED. VSS. T/C TO DR SANTIAGO. MUCINEX AND CXR ORDERED.
--- NOTE | 2016-08-16 22:57 | NUR ---
PT HAS BEEN CALM AND COOPERATIVE THROUGHOUT SHIFT. PT HAS BEEN IN [place], SOCIALIZING, INTERACTING WELL WITH STAFF AND PEERS, AND HAS HAD NO IMMEDIATE COMPLAINTS. PT MOOD IS STABLE, AFFECT SEEMS CONSTRICTED, COMMUNICATION IS NORMAL, BUT SEEMS TO BE SLOWED IN RESPONSE TIME AND IN STATEMENT RECITAL, APPETITE IS NORMAL. PT DENIES SI AT THIS TIME.
--- NOTE | 2016-08-17 05:29 | NUR ---
PATIENT WAS UP TO THE BATHROOM A COUPLE OF TIMES, AND WAS AWAKE IN BED FROM 0330 TO 0430 DURING THE NIGHT; SHE APPEARED TO SLEEP OTHERWISE.
[2016-08-17 08:02] VITALS: BP 142/75
[2016-08-17 12:26] VITALS: BP 136/70
--- NOTE | 2016-08-17 13:13 | NUR ---
PT IS COMPLIANT AND COOPERATIVE. MOOD IS STABLE WITH A FLAT AFFECT. PT DENIES SI AT THIS TIME, NO COMPLAINTS OFFERED. PT IS PRESENT IN THE COMMUNITY AND INTERACTING WITH PEERS AND STAFF. PT IS ATTENDING GROUPS. VITALS ARE STABLE, APPETITE IS GOOD.
--- NOTE | 2016-08-17 14:03 | CP SOUTH PROGRESS NOTE PSYCH ---
Psych (Inpt) Progress Note Progress Note Include the following elements, when applicable: Involvement in the active treatment of the patient with behavioral observations of the patient and the patient's response to the treatment. Review of the ongoing treatment process in the context of the treatment plan. Indication of how multi-disciplinary staff members are carrying out the treatment plan. Plans for future interventions and recommendations for revision of the treatment plan. Liaison with other physicians/providers. Progress Note: [I discussed this patient's progress to date, current mental status, treatment process in the context of the treatment plan, and discharge planning with staff/ team in the daily morning inpatient team meeting. I also met with the patient myself in individual session.] SUBJECTIVE: "I'm feeling good, like myself." OBJECTIVE: Current Medications Sig/Gideon Start time Last Medication Dose Route Stop Time Status Admin Acetaminophen 650 MG Q6P PRN 08/12 1300 AC PO Al Hydroxide/Mg 30 ML Q4-6 PRN PRN 08/12 1300 AC Hydroxide PO Aripiprazole 25 MG 2200 08/16 2200 AC 08/16 PO 2156 Guaifenesin 600 MG Q12 08/16 2200 AC 08/17 PO 08/18 0600 0854 Magnesium Hydroxide 30 ML AT BEDTIME PRN 08/12 1300 AC 08/13 PO 1206 Mirtazapine 30 MG AT BEDTIME 08/14 2200 AC 08/16 PO 2157 Vital Signs Date Time Temp Pulse Resp B/P Pulse O2 O2 Flow FiO2 Ox Delivery Rate 08/17 1226 85 136/70 08/17 0802 97.6 85 142/75 08/16 2036 Room Air 08/16 1951 98.9 85 128/69 08/16 1623 79 128/78 ASSESSENT: Met with the patient today, who was A&Ox4. She presented soft spoken, speech normal in rate and tone. She reported her mood as "good" and affect appeared hancock in range than on previous encounters. She was observed smiling and laughing appropriately. She reported attending groups today, and reported enjoying accupunture. She reported her energy and appetite were good. She reported difficulty staying alseep last night and reported this being related to feeling excited about discharging soon. She reported intermittent sadness throughout this morning as she saw fellow patients discharging from unit. She verbalized that she made friends while hospitalized on the unit and appropriately expressed feeling sad seeing them leave. Patient was observed tearful at times, but was able to self-soothe and continue in conversation. Thought process appeared clearer, and was less circumstantial than on previous encounters. Thought content was appropriate. She denied auditory and visual hallucinations. There was no evidence of internal preoccupation, or of paranoid ideation or delusions. She rated her depression a 0/10 (10 being the worst), and reported anxiety of 3/10 (10 being the worst). She denied feeling hopeless, helpless, and worthless. She denied passive/active suicidal ideation, plans and intent. She denied homicidal ideation. Judgement and insight were fair and improved since initial admission to [facility]. Patient reported tolerating increased Abilify to 25mg at night. She denied untoward medication effects, akathesia, anxiety or abnormal involuntary movements. AIMS=0. Patient is agreeable to continue taking Abilify 25mg at night. PLAN: 1. Continue monitoring the patient on unit for safety and mood. 2. Continue current medications. Continue monitoring response to increased Abilify. 3. Tentative discharge tomorrow.
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
[2016-08-17 15:40] VITALS: BP 104/77
--- NOTE | 2016-08-17 16:24 | RADIOLOGY REPORT ---
EXAMINATION: XR CHEST CLINICAL INFORMATION: Cough. COMPARISON: None. TECHNIQUE: PA and lateral views of the chest were obtained. FINDINGS: No significant abnormality is noted involving the heart, lungs, mediastinum, bony thorax, or soft tissues. IMPRESSION: No acute disease.
[2016-08-17 19:39] VITALS: BP 154/96
--- NOTE | 2016-08-17 21:46 | NUR ---
PT IS VISIBLE ON UNIT, INTERACTING WITH PEERS. ATTENDED WRAP UP AND PARTICIPATED. VERY QUIET BUT COOPERATIVE AND COMPLIANT. NO COMPLAINTS REPORTED. PT HAS A STABLE MOOD AND FLAT AFFECT.
--- NOTE | 2016-08-18 04:54 | NUR ---
SLEPT WELL AWAKE IN ROOM COUPLE TIMES.
[2016-08-18 07:34] VITALS: BP 134/79
--- NOTE | 2016-08-18 09:41 | NUR ---
pt is scheduled for d/c to [facility] today. she reports and demonstrates improvement in her mood and affect and behavior. she has full range of affect. she denies any thoughts of suicide or self harm. she verbalizes a good understanding of her med regime and treatment plan. pt expects to follow up with [facility]. pt is given education on bipolar d/o amd suicide prevention
--- NOTE | 2016-08-18 11:43 | SOCIAL WORKER PROG NOTE PSYCH ---
Social Work Progress Note Progress Note Patient to discharge the hospital today. Patient denies SI/HI/AH/VH at present and is looking forward to returning home today. Patients is aware and also looking forward to patient returning home. Patient has intake scheduled with [facility] on Sunday @ 11:15am. Patient is aware and plans to attend. Patient is able to contract for safety at this time and reports feeling comfortable discharging home today. Patient denies any current stressors.
[2016-08-18] MEDS ORDERED: ABILIFY20 M1 PO (11:46)
[2016-08-18] MEDS ORDERED: MIRTAZAPINE30 M2 PO (11:46)
[2016-08-18] MEDS ORDERED: ABILIFY5 M1 PO (11:46)
[2016-08-18 12:17] VITALS: BP 144/96
--- NOTE | 2016-08-18 12:32 | CP SOUTH PROGRESS NOTE PSYCH ---
Psych (Inpt) Progress Note Progress Note Include the following elements, when applicable: Involvement in the active treatment of the patient with behavioral observations of the patient and the patient's response to the treatment. Review of the ongoing treatment process in the context of the treatment plan. Indication of how multi-disciplinary staff members are carrying out the treatment plan. Plans for future interventions and recommendations for revision of the treatment plan. Liaison with other physicians/providers. Progress Note: [I discussed this patient's progress to date, current mental status, treatment process in the context of the treatment plan, and discharge planning with staff/ team in the daily morning inpatient team meeting. I also met with the patient myself in individual session.] SUBJECTIVE: "I feel so much better!" OBJECTIVE: Current Medications Sig/Gideon Start time Last Medication Dose Route Stop Time Status Admin Acetaminophen 650 MG Q6P PRN 08/12 1300 AC PO Al Hydroxide/Mg 30 ML Q4-6 PRN PRN 08/12 1300 AC Hydroxide PO Aripiprazole 25 MG 2200 08/16 2200 AC 08/17 PO 2112 Guaifenesin 600 MG Q12 08/16 2200 DC 08/17 PO 08/18 0600 2112 Magnesium Hydroxide 30 ML AT BEDTIME PRN 08/12 1300 AC 08/13 PO 1206 Mirtazapine 30 MG AT BEDTIME 08/14 2200 AC 08/17 PO 2112 Vital Signs Date Time Temp Pulse Resp B/P Pulse O2 O2 Flow FiO2 Ox Delivery Rate 08/18 1217 77 144/96 08/18 0734 97.5 86 134/79 08/17 1939 97.1 90 154/96 08/17 1540 94 104/77 08/17 1226 85 136/70 ASSESSMENT: Met with the patient today, on the date of discharge. She presented alert and oriented to person, place, and time. Affect calm and blunted. Mood appeared more stable. She had no complaints. Speech was soft-spoken, normal in rate and tone. She reported feeling "so much better." She reported sleep and appetite were good. She reported depression of 0/10 (10 being the worst) and anxiety of 1/10 ( 10 being the worst). She denied feeling hopeless, helpless, and worthless. She denied active/passive suicidal ideation, plans and intent. She denied homicidal ideation. The patient stated and also believed she will not harm herself or others. She identified protective factors of her , her son, and friends. She denied auditory and visual hallucinations. There was no evidence of paranoia or of mohit delusions. Thought process remained mildly circumstantial but improved, and goal directed. Thought content was appropriate. Insight and judgment were fair. Patient verbalized motivation to attend [facility] intake on 08/21/16 at 11:15AM, continue treatment there, and take prescribed medications. Patient reported tolerating all medications well and denied untoward medication effects. AIMS=0. Patient reported feeling safe and ready for discharge. PLAN: 1. Discharge today into the care of . 2. Paper prescriptions of discharge medications provided per patient and 's request. 3. F/u at [facility] intake on 08/21/16 at 11:15AM. Patient verbalized understanding of scheduled intake appointment. 4. In the event of an emergency, call [phone]/go to nearest emergency department. Patient verbalized understanding of instruction.
--- NOTE | 2016-08-18 12:36 | DISCHARGE SUMMARY REPORT-PSYCH ---
Visit Information Visit Dates/Diagnosis' Admission Date: 08/12/16 Discharge Date: 08/18/16 Reason for Admission: ? Suicide attempt by overdose, decline in mood and functioning, ? catatonia. Psy Discharge Primary Diag: Bipolar disorder, depressed, with psychotic features Psy Discharge Secondary Diag: Borderline DM (controlled by diet ) Hospital Course Significant Lab Findings: Lab Calcium 10.7 mg/dL H 08/12/16 0435 Cholesterol 208 MG/DL H 08/12/16 0435 Cholesterol/HDL Ratio 3 % 08/12/16 0435 Glucose 101 mg/dL H 08/12/16 0435 HDL Cholesterol 62 mg/dL H 08/12/16 0435 LDL Cholesterol, Calc 131 mg/dL H 08/12/16 0435 Triglycerides 75 mg/dL 08/12/16 0435 08/12/16 EKG: Sinus rhythm, rate of 84. QT= 344 QTc= 407 P = 15 QRS = 10 T = 0 08/16/16 Chest X-ray: Findings: No significant abnormality is noted involving the heart, lungs, mediastinum, bony thorax, or soft tissues. Impression: No acute disease. Course Complications: None. Consultations: Patient was seen for admission history and physical by Dr. Ama Staton. Please see MD note for additional information. Dr. Staton was consulted again , related to patient cough. Mucinex and Chest X-ray were ordered. See results in 'significant lab' results above. Allergies: Coded Allergies: epinephrine (UNKNOWN 08/14/16) fluoxetine (UNKNOWN 08/14/16) nitrofurantoin (UNKNOWN 08/14/16) Hospital Course/TX Response: The patient was monitored on the unit for safety, suicidal ideation, mood and psychosis. She participated in multimodal treatments on the unit. Home Xanax prn was discontinued. Patient was started on low dose Ativan 0.5mg twice a day for intial presentation of selective mutism, with good effect. Ativan was gradually decreased and discontinued, as speech became more fluid. Remeron 45mg at bedtime was reduced to 30mg at bedtime for depression/insomnia. Abilify was increased from 15mg to 25mg at bedtime for mood stabilization. Patient tolerated all medications well and denied untoward effects. During hospital course, the patient's mood and affect improved. Suicidal ideation, psychosis, and selective mutism remitted. A phone conference was held with the patient, the patient's , Cyndy Benton LCSW and this creative services writer. The patient's treatment progress, medication regimen, level of safety, and discharge planning were reviewed. The patient's did not express any acute safety concerns regarding the patient. He expressed a desire to support the patient in her treatment post-discharge, and was agreeable to manage/administer the patient 's medications once discharged from [facility]. Patient was also agreeable to allowing to manage her medications. The patient's and patient were in agreement of discharge recommendation for patient to follow-up with [facility]. Intake was scheduled at [facility] on 08/21/16 at 11:15AM. On the date of discharge, 08/18/16, the patient presented alert and oriented to person, place, and time. Affect was calm and blunted. Mood appeared more stable. She had no complaints. Speech was soft-spoken, normal in rate and tone. She reported feeling "so much better." She reported sleep and appetite were good. She reported depression of 0/10 (10 being the worst) and anxiety of 1/10 (10 being the worst). She denied feeling hopeless, helpless, and worthless. She denied active/passive suicidal ideation, plans and intent. She denied homicidal ideation. The patient stated and also believed she will not harm herself or others. She identified protective factors of her , her son, and friends. She denied auditory and visual hallucinations. There was no evidence of paranoia or of mohit delusions. Thought process remained mildly circumstantial but improved from initial course of hospitalization, and now goal directed. Thought content was appropriate. Insight and judgment were fair. Patient verbalized motivation to attend [facility] intake on 08/21/16 at 11:15AM, continue treatment there, and take prescribed medications, and to allow her to manage her medications. Patient reported tolerating all medications well and denied untoward medication effects. AIMS=0. Patient reported feeling safe and ready for discharge. Discharge HBIPS - Tobacco Use Treatment Offered Post DC Medications Offered: NA-No Tob Use >30 days Post DC Tobacco Treatment Plan: NA-No Tobacco use >30days - EtOH/Drug Use D/O Treatment Offered Post DC Medications Offered: NA-No EtOH/Drug Use D/O Post DC EtOH/SubAbuse TX Plan: NA-No EtOH/Drug Use D/O Metabolic Screening - Screen if on a Neuroleptic Medication - Metabolic screening should include: - Blood Pressure, BMI, Glucose or Hgb A1c, & a - Lipid profile from within the past 365 days. Metabolic Screening () Not Applicable, patient not on a neuroleptic. OR ([X]) Patient on a neuroleptic(s) . Enter below results for Glucose or Hemoglobin A1C, and lipid panel if obtained during the last 365 days. BMI: 26.600 Blood Pressure: 144/96 Laboratory Results (If applicable): Lab Cholesterol 208 MG/DL H 08/12/16434 Cholesterol/HDL Ratio 3 % 08/12/16434 Glucose 101 mg/dL H 08/12/16434 HDL Cholesterol 62 mg/dL H 08/12/16 043 LDL Cholesterol, Calc 131 mg/dL H 08/12/16434 Triglycerides 75 mg/dL 08/12/16434 Discharge Instructions General Discharge Information Discharge Medications: Discharge Medications- (Dose, route, freq, indication): HOME MEDICATION LIST START taking these NEW Home Medications: Mirtazapine Dose: ORAL, AT BEDTIME for Qty: 14 Hand-written (Mirtazapine) 30 MG 30 Milligram depression/insomnia Refills: 0 TABLET Take 1 tablet by mouth at bedtime. Last Taken:08/17/16 Time:2111 Aripiprazole Dose: ORAL, Every night for Qty: 14 Hand-written (Abilify) 20 MG 20 Milligram stable mood/clear Refills: 0 TABLET thoughts Take 1 tablet (20mg) by mouth at bedtime. Last Taken:08/17/16 Time:2111 Aripiprazole Dose: ORAL, Every night for Qty: 14 Hand-written (Abilify) 5 MG 5 Milligram stable mood/clear Refills: 0 TABLET thoughts Take 1 tablet (5mg) by mouth at bedtime. Last Taken:08/17/16 Time:2111 Paper prescriptions were provided today,08/18/16, for all discharge medications per the patient's and 's request. STOP taking these DISCONTINUED Home Medications: Bupropion HCl (Bupropion HCl) Dose: ORAL, DAILY for MOOD STABILITY 75 MG TABLET 75 Milligram Reason Stopped: Per Doctor Decision Mirtazapine (Mirtazapine) 45 Dose: ORAL, DAILY for MOOD STABILITY MG TABLET 15 Milligram Reason Stopped: Per Doctor Decision Aripiprazole (Abilify) 15 MG Dose: ORAL, DAILY for MOOD STABILITY TABLET 15 Milligram Reason Stopped: Per Doctor Decision Alprazolam (Alprazolam) 0.5 MG Dose: ORAL, DAILY for ANXIETY TABLET 1 Milligram Reason Stopped: Per Doctor Decision Multiple Neuroleptics: ([X]) Not Applicable OR Document below three failed attempts at monotherapy, or a plan to taper to monotherapy, or augmentation of Clozapine. () Patient's Diet: Regular. Patient's Activity: No restrictions. DC Disposition: Patient to return to home and . Recommendations: Patient was advised to please take medications. She was advised to follow-up with PCP regarding elevated cholesterol. Patient was advised to follow-up at [facility] intake on 08/21/16 at 11:15AM. Patient was advised that in the event of an emergency, to call 911/go to nearest emergency department. Patient verbalized understanding of all instructions. Referred To: [address] (t)[phone] Intake scheduled on 08/21/16 @ 11:15AM Copies To: [facility]
== END 2016-08-18 14:34 | DRG 885 ==
LOC: ERH 03:49 → ERHI 12:59 → CP SOUTH 12:59
PROVIDERS: Pediatrics; ADMIT Psychiatry & Neurology Psychiatry
DX: F31.5 Bipolar disorder, current episode depressed, severe, with psychotic features (principal); E11.9 Type 2 diabetes mellitus without complications
CPT/HCPCS: 36415; 93005; 93010; G0479; G0480; J0401

== ENCOUNTER 2016-08-20 18:43 | Inpatient (IN) | payer OTHER ==
[~2016-08-20] VITALS: Ht 162.6 cm; Wt 80.3 kg
[~2016-08-20 18:43] MED LIST: ABILIFY10 M1 PO; ABILIFY15 M1 PO; ABILIFY20 M1 PO; ABILIFY5 M1 PO; ALPRAZOLAM0.5 M4 PO; BUPROPION HCL75 M1 PO; MIRTAZAPINE30 M2 PO; MIRTAZAPINE45 M1 PO
--- NOTE | 2016-08-20 18:53 | ED PSYCHIATRIC COMPLAINT ---
See Addendum History of Present Illness General Chief Complaint: Psychiatric Related Complaint Stated Complaint: BIBA DELUSIONS,WANDERING (ON PEER) Source: old records, EMS Exam Limitations: confusion Vital Signs & Intake/Output Vital Signs & Intake/Output SEE TRIAGE Triage Nurses Notes Reviewed? yes Onset: Abrupt Duration: unknown duration Timing: single episode today Severity: severe Associated Symptoms: ANXIETY, PARANOID HPI: This is a 61-year-old brought in by ambulance on a police paper for psychiatric evaluation after being found wandering inappropriately dressed for the cold weather. Patient is confused and paranoid, fixated that she might of dislocated her right knee. She was recently discharged from Inpatient Psychiatry. The patient is very anxious to change her clothes. She is unable to give any medical history. The patient has a history of bipolar disorder with catatonic features, history of depression. (ROYAL BRAMBILA,JAIME) Allergies Coded Allergies: bupropion (From WELLBUTRIN) (UNKNOWN PT STATES SHE CAN NOT TAKE 150MG 08/20/16) epinephrine (UNKNOWN 08/14/16) fluoxetine (UNKNOWN 08/14/16) nitrofurantoin (UNKNOWN 08/14/16) Reconcile Medications Alprazolam (Unknown Strength) TABLET (Unknown Dose) UNKNOWN (Reported) Aripiprazole (Abilify) 20 MG TABLET 20 MG PO QPM stable mood/clear thoughts Take 1 tablet (20mg) by mouth at bedtime. Aripiprazole (Abilify) 5 MG TABLET 5 MG PO QPM stable mood/clear thoughts Take 1 tablet (5mg) by mouth at bedtime. Bupropion HCl (Unknown Strength) TABLET (Unknown Dose) UNKNOWN (Reported) Mirtazapine 30 MG TABLET 30 MG PO AT BEDTIME depression/insomnia Take 1 tablet by mouth at bedtime. (DEMI BRAMBILA,SHARMAINE Jules) Past History Travel History Traveled to [place] past 21 day No Medical History Any Pertinent Medical History? see below for history Neurological: NONE EENT: NONE Cardiovascular: NONE, Reports varicose veins on legs. Respiratory: NONE Gastrointestinal: NONE Hepatic: NONE Renal: NONE Musculoskeletal: falls Psychiatric: depression Endocrine: NONE, Reports borderline DM, diet-controlled. 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 No (JAIME PAIGE MD) Review of Systems Review of Systems Constitutional: Reports: see HPI (unable to obtain from pt). Neurological/Psychological: Reports: anxiety. (JAIME PAIGE MD) Physical Exam Physical Exam General Appearance: well developed/nourished, alert, awake, anxious, mild distress Head: atraumatic, normal appearance Eyes: Bilateral: normal appearance, PERRL, EOMI. Ears, Nose, Throat: hearing grossly normal Neck: normal inspection, supple, full range of motion Respiratory: normal breath sounds, chest non-tender, no respiratory distress Cardiovascular: regular rate/rhythm Gastrointestinal: normal bowel sounds, soft, non-tender Extremities: normal range of motion Neurological/Psychiatric: no motor/sensory deficits, awake, alert, anxious Behavoir/Eye Contact/Speech: compulsive, increased rate of speech Thoughts/Hallucinations: flight of ideas, incoherent, paranoid SAD PERSONS Done? unobtained due to conditi (JAIME PAIGE MD) Progress Differential Diagnosis: BIPOLAR DISORDER, PSYCHOSIS Plan of Care: Orders Procedure Date/time Status Admit to inpatient psych 08/21 1100 Active Patient Data - inpatient psych 08/21 1019 Active Admit to inpatient psych 08/21 1019 Active Vital Signs 08/21 UNK Active Nursing Misc 08/21 UNK Active Activity/Ambulation 08/21 UNK Active ED CRISIS PSYCH CONSULT 08/20 1915 Active Continuous Observation Monitor 08/20 185 Active URINE DRUGS OF ABUSE 08/20 185 Complete THYROID STIMULATING HORMONE 08/20 1852 Complete FREE T4 08/20 185 Complete ETHANOL 08/20 185 Complete COMPREHENSIVE METABOLIC PANEL 08/20 185 Complete CBC WITHOUT DIFFERENTIAL 08/20 185 Complete Current Medications Sig/Gideon Start time Last Medication Dose Stop Time Status Admin Haloperidol 5 MG .[Q 8 HOURS] PRN 08/21 1045 UNVr (Haldol) Lorazepam 1 MG Q6P PRN 08/20 2030 AC (Ativan) Laboratory Tests 08/20/166: Urine Opiates Screen < 100.00, Methadone Screen < 40, Barbiturate Screen < 60, Ur Phencyclidine Scrn < 6.00, Amphetamines Screen < 100, U Benzodiazepines Scrn < 85, Urine Cocaine Screen < 50, Urine Cannabis Screen < 5.00 08/20/16 1915: Anion Gap 16, Estimated GFR > 60, BUN/Creatinine Ratio 22.9, Glucose 105 H, Calcium 10.5 H, Total Bilirubin 0.6, AST 36, ALT 43, Alkaline Phosphatase 70, Total Protein 7.9, Albumin 4.8, Globulin 3.1, Albumin/Globulin Ratio 1.5, TSH 1.490, Free T4 1.55, CBC w Diff NO MAN DIFF REQ, RBC 4.77, MCV 88.9, MCH 30.1, RDW 13.7, MPV 9.2, Gran % 72.5, Lymphocytes % 21.6, Monocytes % 5.4, Eosinophils % 0.3, Basophils % 0.2, Absolute Granulocytes 6.6 H, Absolute Lymphocytes 1.9, Absolute Monocytes 0.5, Absolute Eosinophils 0, Absolute Basophils 0, PUBS MCHC 33.9, Serum Alcohol < 10.0 Hand-Off Endorsed To: SHARMAINE KEBEDE MD Endorsed Time: 1903 Pending: consult (CRISIS), labs, other (UTOX) (JAIME PAIGE MD) Diagnostic Imaging: Viewed by Me: Radiology Read. Discussed w/RAD: Radiology Read. Radiology Impression: right knee... small effusion. otherwise benign. Hand-Off Endorsed To: ANTONELLA FALL MD Endorsed Time: 699 Pending: consult (DEMI BRAMBILA,SHARMAINE Jules) Comments: 08/21/16 07:00 pt signed out to me by dr kebede. (ANTONELLA FALL MD) Departure Departure Disposition: STILL A PATIENT Condition: Stable Clinical Impression Primary Impression: Bipolar disorder Referrals: TOD CHAWLA MD Departure Forms: Customer Survey General Discharge Information (JAIME PAIGE MD) Psych Admission Note Psychiatric Admission: I have seen and evaluated BEV ESTRELLA. I have also reviewed all the pertinent lab results and diagnostic results. BEV ESTRELLA will be admitted to our inpatient Psychiatric unit for treatment and care. (ANTONELLA FALL MD)
[2016-08-20 19:22] LABS: ABSOLUTE BASOPHIL COUNT 0 /CUMM (0.0-0.2); ABSOLUTE EOSINOPHIL COUNT 0 /CUMM (0.0-0.7); ABSOLUTE GRANULOCYTE CT 6.6 /CUMM (1.4-6.5); ABSOLUTE LYMPH COUNT 1.9 /CUMM (1.2-3.4); ABSOLUTE MONOCYTE COUNT 0.5 /CUMM (0.10-0.60); BASOPHIL % 0.2 % (0.0-2.0); EOSINOPHIL % 0.3 % (0-5); GRANULOCYTE % 72.5 % (42.2-75.2); HEMATOCRIT 42.4 % (37-47); MEAN CORPUSCULAR HGB 30.1 PG (27.0-31.0); MEAN CORPUSCULAR HGB CONC 33.9 G/DL (33.0-37.0); MEAN CORPUSCULAR VOLUME 88.9 FL (81.0-99.0); MEAN PLATELET VOLUME 9.2 FL (7.4-10.4); PLATELET COUNT 195 /CUMM (130-400); RBC DISTRIBUTION WIDTH 13.7 % (11.5-14.5); RED BLOOD CELL CT 4.77 /CUMM (4.20-5.40)
[2016-08-20] MEDS ORDERED: BUPROPION HCL75 M1 (19:25)
[2016-08-20] MEDS ORDERED: ALPRAZOLAM0.5 M4 (19:26)
--- NOTE | 2016-08-20 19:31 | ED PSY CRISIS COLLATERAL NOTE ---
Collateral Note Collateral Note Family/Inform/Adria Contacts: accompanying his , states she came home from the hosptial on Sunday afternoon, by today she already became paranoid and starting talking about being arrested for perjury and was consumed with the neighbor. Pt did not fall asleep last night until 3 am and went without her psych meds because her fell asleep before she was given them. Fish states prior to arrival she was covering her face, talking to herself and ran outside without her coat on and headed down the road. Thats when he decided to call an ambulance.
--- NOTE | 2016-08-20 19:41 | ED PSYCH CRISIS CONSULTATION ---
Crisis Consult Basic Assessment Date of Consult: 08/20/16 Responsible Person/Accompanied By: DIEGO is here. Insurance Authorization: Insurance #1: Insurance name: [facility] [employer] Phone number: Policy number: [id number] Group number: Authorization number: ED Provider: Patient's ED Provider: JAIME PAIGE MD Primary Care Physician: Patient's PCP: WILLIAM MORENO MD PCP's Current Psychiatrist: Syeda Hernandez APRN intake with [facility] 08/21 Chief Complaint: Psychiatric Related Complaint Patient's Quote: "paranoid" Present Illness: Pt is a 61 year old female, she was discharged from [facility] on Sunday08/18/16, just 2 days ago. Her states she almost immediately became paranoid when returned home. She was whispering to herself, making comments about perjury and , and was consumed with the ongoing issues with her neighbor. Upon evaluation this evening, pt is tearful, pointing to her knee and saying its clicking, she is reciting the word paranoid quietly to herself. Pt had an upcoming appointment with [facility] on 08/21/16. Her states her medications were not given until 3 am when patient woke him up, as she was coming to bed. She is denying si/hi however she thinks she took medications today and threw it up, belives this to be a delusion. Pt reenacts throwing up by showing her tongue and gagging herself. Pt has a variety of somatic complaints. Pt denies drug etoh abuse. Patient's Address: [address] [place] [address] Other Phone Number: Who Do You Live With? Family Family/Informants Interviewed: Spoke with Fish. Allergies - Coded Allergies: bupropion (From WELLBUTRIN) (UNKNOWN PT STATES SHE CAN NOT TAKE 150MG 08/20/16) epinephrine (UNKNOWN 08/14/16) fluoxetine (UNKNOWN 08/14/16) nitrofurantoin (UNKNOWN 08/14/16) Current Medications - Scheduled Medications Aripiprazole (Abilify) 20 MG TABLET 20 MG PO QPM stable mood/clear thoughts # 14 TAB Prescribed by SYEDA DIEGO APRN on 08/18/16 Aripiprazole (Abilify) 5 MG TABLET 5 MG PO QPM stable mood/clear thoughts #14 TAB Prescribed by SYEDA DIEGO APRN on 08/18/16 Mirtazapine 30 MG TABLET 30 MG PO AT BEDTIME depression/insomnia #14 TAB Prescribed by SYEDA DIEGO APRN on 08/18/16 Miscellaneous Medications Alprazolam (Unknown Strength) TABLET (Unknown Dose) UNKNOWN #30 (Reported) Entered as Reported by NICKIE YANG on 08/20/161925 Bupropion HCl (Unknown Strength) TABLET (Unknown Dose) UNKNOWN #30 (Reported) Entered as Reported by NICKIE YANG on 08/20/161924 Discontinued Medications Alprazolam 0.5 MG TABLET 1 MG PO DAILY ANXIETY #30 (Reported) Discontinued reason: Per Doctor Decision Aripiprazole (Abilify) 15 MG TABLET 15 MG PO DAILY MOOD STABILITY #30 ( Reported) Discontinued reason: Per Doctor Decision Bupropion HCl 75 MG TABLET 75 MG PO DAILY MOOD STABILITY #30 (Reported) Discontinued reason: Per Doctor Decision Mirtazapine 45 MG TABLET 15 MG PO DAILY MOOD STABILITY #30 (Reported) Discontinued reason: Per Doctor Decision Laboratory Results: Laboratory Tests 08/20/161914: Sodium Pending, Potassium Pending, Chloride Pending, Carbon Dioxide Pending, Anion Gap Pending, BUN Pending, Creatinine Pending, BUN/Creatinine Ratio Pending , Glucose Pending, Calcium Pending, Total Bilirubin Pending, AST Pending, ALT Pending, Alkaline Phosphatase Pending, Total Protein Pending, Albumin Pending, Globulin Pending, Albumin/Globulin Ratio Pending, TSH Pending, Free T4 Pending, CBC w Diff NO MAN DIFF REQ, RBC 4.77, MCV 88.9, MCH 30.1, RDW 13.7, MPV 9.2, Gran % 72.5, Lymphocytes % 21.6, Monocytes % 5.4, Eosinophils % 0.3, Basophils % 0.2, Absolute Granulocytes 6.6 H, Absolute Lymphocytes 1.9, Absolute Monocytes 0.5, Absolute Eosinophils 0, Absolute Basophils 0, PUBS MCHC 33.9, Serum Alcohol Pending Past History Past Medical History Neurological: NONE EENT: NONE Cardiovascular: NONE, Reports varicose veins on legs. Respiratory: NONE Gastrointestinal: NONE Hepatic: NONE Renal: NONE Musculoskeletal: falls Psychiatric: depression Endocrine: NONE, Reports borderline DM, diet-controlled. 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 She did well in the inpatient setting and improved. Physical Limitations (Interventions): none known Psychiatric Treatment History Psych Treatment Psychiatric Treatment Yes Inpatient Treatment Yes Outpatient Treatment Yes Location of Treatment [facility] [address] Gould outpatient/ [facility] referral Reason for Treatment Bipolar with psychotic features Dates of Treatment August 2016 in [facility] Response to Treatment Improved Diagnosis by History: Bipolar Disorder with psychosis Substance Use/Abuse History Drug Use/Abuse Substances Used/Abused No Substance Abuse Treatment Substance Abuse Treatment Past Substance Abuse [place] No Current Mental Status Mental Status Orientation: Confused Affect: Inappropriate Speech: Soft Neuro-vegetative: Concentration Poor, Loss of Interest, Sleep Disturbance Appearance Appearance- Dress/Hygiene: WNL, in hosptial attire, previously dressed casual. Behaviors Thought Process: Disorganized, Thought Blocking Thought Content: Auditory Hallucinations, Obsessions, Paranoid, Thought Blocking Memory: Immediate Insight: Poor SI/HI Risk Assessment Past Suicidal Ideation/Attempts Yes Current Suicidal Ideation/Att No Past Homicidal Ideation/Att: No Current Homicidal Ideation/Attempts No Degree of Intent: None, Self Destructive/No Gravely Disabled: Inability Risk Factors: high anxiety/distress, poor impulse control, limited support Lethality Ratin PTSD Checklist PTSD Done? patient declined ED Management Sitter: Yes Restraints: No DSM5/PS Stressors/Medical Prob Diagnosis' (DSM 5, Stressors, Medical): F31.5 - Bipolar I, MRE depressed w/psychotic features; Current GAF: 27 Departure Disposition Psych Medical Clearance Date: 08/20/16 Medically Cleared at: 1947 Time Started: 1948 Time Ended: 2048 Psychiatrist Consulted: Nandini Date Disposition Established: 08/20/16 Time Disposition Established: 1949 Plan for Disposition - Modality: Inpatient Psychiatry Facility: [facility] Follow-up Appt Date: 08/21/16 Contact: JIE Telephone: ANUJAD Rationale for Disposition: Consulted with Dr. Delatorre Additional Instructions: Pt to remain in ER Pt meets criteria for inpatient admission. Referrals WILLIAM MORENO MD (PCP/Family)
--- NOTE | 2016-08-20 19:42 | NUR ---
PER DISCHARGED FROM [facility] ON SUNDAY, SINCE THEN PT HAS BEEN INCREASING MORE CONFUSED TODAY WAS THE WORST", UPON THIS SOLE BLACKER ENTRANCE TO ROOM PT CONFUSED, TALKING ABOUT HER "TONGUE, THE SHELF" AND ITS UP HERE. EMOTINAL NOT MAKING SENZE, UNCEAR TO DATE AND TIME.
--- NOTE | 2016-08-20 21:08 | RADIOLOGY REPORT ---
EXAMINATION: XR KNEE, RIGHT CLINICAL INFORMATION: Pain and clicking COMPARISON: None. TECHNIQUE: 4 views of the right knee FINDINGS: The lateral radiograph is nonstandard and in its positioning. Subtle fat stranding in Hoffa's fat pad. I suspect a small effusion. Minor degenerative disease in all compartments. No acute fracture or dislocation. IMPRESSION: Suspect small joint effusion.
--- NOTE | 2016-08-20 22:49 | NUR ---
PT VERY CONFUSED, TALKING TO SELF TALKING ABOUT RAZRS IN HER MOUTH, BUT NOT LUCID. PT NEEDS MUCH ASSISTANCE TO TAKE PO MEDS AND DRINK WATER.
--- NOTE | 2016-08-21 02:33 | NUR ---
PT REMAINS CONFUSED REPORTS TO THIS COMMISSARY STEWARD HER LEG CRACKED, AND THAT SHE NEEDS A SPLINT, PT REPORTS IT JUST HAPPENED BUT UPON ARRIVAL CO PAIN TO KNEE FROM NO KNOWN INJURY. PT THEN REPORTS HER PILLOW WAS TAKEN PT DID NOT HAVE PILLOW ON ARRIVAL, AND REFUSED ONE IN HUSBANDS PRESENCE EARLIER. GIVEN TYLENOL FOR PAIN AND ENCOURAGED TO TRY AND SLEEP, PT REPORTS THAT "BONILLA IS HERE" PT REORIENTED TO TIME. AND PLACE. SITTER REMINDED TO LAVE DOOR OPEN.
--- NOTE | 2016-08-21 05:50 | NUR ---
PT HAS NOT SLEPT MOST OF SHIFT, APPEARS TO BE SLEEPING AT THIS TIME. SITTER REMAINS IN ATTENDENCE WITH DOOR OPEN.
--- NOTE | 2016-08-21 07:20 | NUR ---
ASSUMED CARE OF PT AT THIS TIME, PT NOTED TO BE SLEEPING ON STRETCHER, REG RESP RATE NOTED. SITTER REMAINS PRESENT AT THIS TIME. WILL CTM
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
--- NOTE | 2016-08-21 11:01 | NUR ---
PT AWAKE AT THIS TIME. PT CALM AND COOPERATIVE. PT OFFERS NO COMPLAINTS AND STATES HER KNEE IS FEELING BETTER AT THIS TIME. SITTER REMAINS PRESENT. WILL CTM.
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
--- NOTE | 2016-08-21 11:26 | NUR ---
PT SEATED ON BED WITH TV ON. PT CALM AND COOPERATIVE AT THIS TIME. VSS. 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 ASSESSED FEET, RIGHT FOOT IS MORE DRY AND PT STATES THAT IT IS ITCHY. PT AWARE OF PLAN TO BE ADMITTED TO [facility]. SITTER AT DOOR.
--- NOTE | 2016-08-21 13:16 | NUR ---
FINGER FOOD TRAY ORDERED.
--- NOTE | 2016-08-21 13:57 | NUR ---
PT SITTING ON BED EATING LUNCH. PT CALM AND COOPERATIVE AT THIS TIME. VSS.
--- NOTE | 2016-08-21 15:55 | NUR ---
PT WATCHING TV, CALM AND COOPERATIVE AT THIS TIME. PT AWAITING TRANSFER DOWN TO CPS.
--- NOTE | 2016-08-21 16:48 | NUR ---
PT SLEEPING AND AWOKEN FOR VITALS. PT CALM AND COOPERATIVE AT THIS TIME. PT REPORTS SHE IS TIRED. ADVISED SHE WOULD BE TRANSFERRING DOWN TO CPS SOON.
[2016-08-21 17:58] VITALS: BP 111/67
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
[2016-08-21 20:07] VITALS: BP 137/42
--- NOTE | 2016-08-21 22:52 | PN- Att Addend ---
Attending Addendum Attending Brief Note 61 yo F with h/o bipolar disorder, who was discharged 2 days ago from inpatient Psychiatry returns for evaluation of paranoia and delusions. Please refer to Psychiatry note for details. Patient lives with her . She is whispering and very slow to react. She reports having right leg varicose veins for which she saw a Vascular doctor, but did not undergo surgery as she was afraid of . C/o fungal infection to her toes and pain to her right knee. Denies fall or trauma, but reports she might have stretched it too far. No trouble walking. She denies any systemic symptoms of chest pain, dyspnea, cough, GI or urinary. PMH: borderline diet controlled diabetes, depression, bipolar disorder. PSH: surgery for ectopic. Allergies: macrodantin and claritin. Family h/o: breast cancer in maternal great grandmother and ovarian cancer in her aunt. 12 point ROS was otherwise negative. Vitals stable. Exam: Gen: AAO, slow to react, whispers, but cooperative Skin No Rashes. HEENT: Atraumatic, PERRLA, EOMI Neck: Supple, No JVD, No thyromegaly. Cardiovascular Regular Rate, Normal S1, Normal S2. Lungs Clear to Auscultation, Normal Air Movement. Abdomen Normal Bowel Sounds, Soft, No Tenderness. Neurological: Non focal. Labs unremarkable except for glucose 105, calcium 10.5, TSH/free T4 normal, Utox neg and alcohol <10. Right knee Xray: no fracture, small joint effusion, degenerative disease. Plan: 1. Management of bipolar disorder/paranoia per Psychiatrist. 2. Toe fungal infection. Topical clotrimazole BID ordered. 3. Right knee pain, no fracture, small effusion with degenerative disease. Continue pain management with tylenol or NSAIDs, if needed knee brace but continue exercise/walking. DVT prophylaxis low risk, early ambulation.
[2016-08-22 07:50] VITALS: BP 104/66
--- NOTE | 2016-08-22 12:43 | NUR ---
PT STATED HER GOAL WAS TO ATTEND GROUPS AND SHE DID ATTEND ALL THE GROUPS. HER AFFECT IS CONSTRICTED BUT HER BEHAVIOR AND CONVERSATION IS APPROPRIATE. SHE DENIES ANY SUICIDAL THOUGHTS AND IS COMPLIANT WITH HER MEDS
[2016-08-22 12:47] VITALS: BP 121/72
[2016-08-22 13:25] VITALS: BP 121/72
--- NOTE | 2016-08-22 14:27 | SOCIAL WORKER TX PLAN PSYCH ---
SOURAVDANIEL 08/22/16 1427: Treatment Plan - Please Document: - Evidence that there is ongoing collaboration between - the patient and the interdisciplinary team, - including the patient's active participation and - responsibility for engaging in the treatment regimen, - and that the treatment plan is individualized and - relevant to the patient's conditions. - Treatment plan should reflect documentation indicating - that all active therapeutic efforts are included. Strengths/Capabilities: The patient appears to have a supportive with a stable living enviornment. Physical Limitations (Interventions): none known Patient Identified Trmt Goals: " I want to be less worried." Discharge Plan: IOP Problem/Goals #1 Problem #1: suicidal ideation Goal (Short Term): Today I will attend 2 groups Today I will identify 2 stressors Today I will identify 2 positive supports Today I will work on recognizing 3 emotions I am feeling Goal (Resource Coordinator): Be free of suicidal thoughts/attempts Develop 3 coping skills to deal with depression Identify 3 positive support systems to call in crisis Develop a crisis plan with 3 srivastava people Identify 2 positive traits per week about myself Identify 2 things I have to look forward to Identify 2 positive people in my life and 1 thing I appreciate about them Interventions: Learn ways to manage depressive symptoms accordingly and identify positive supports to manage life stressors and mood fluctuations. Modalities: Encourage groups, education on depression, provide CBT treatment, family meeting. DSM5/PS Stressors/Medical Prob Diagnosis' (DSM 5, Stressors, Medical): F31.5 - Bipolar I, MRE depressed w/psychotic features Stressors: Marital and relationship issues Current GAF: 25 Treatment Team - Responsibilities of members of the treatment team include: - Medication Management- MD or COMMERCIAL HOUSEKEEPER - Medication Administration and Monitoring- Nurse - Group Therapy- Occupational Therapist - 1:1 Therapy,Disch Planning,family involvement-Molding Sander MILAGROS LERMA 08/24/16 1411: Treatment Plan - Please Document: - Evidence that there is ongoing collaboration between - the patient and the interdisciplinary team, - including the patient's active participation and - responsibility for engaging in the treatment regimen, - and that the treatment plan is individualized and - relevant to the patient's conditions. - Treatment plan should reflect documentation indicating - that all active therapeutic efforts are included. Strengths/Capabilities: Able to ask for help Physical Limitations (Interventions): n/a Discharge Plan: IOP Problem/Goals #1 Problem #1: suicidal ideation Goal (Short Term): Today I will attend 2 groups Today I will identify 2 stressors Today I will identify 2 positive supports Today I will work on recognizing 3 emotions I am feeling Goal (Half-Way): Be free of suicidal thoughts/attempts Develop 3 coping skills to deal with depression Identify 3 positive support systems to call in crisis Develop a crisis plan with 3 srivastava people Identify 2 positive traits per week about myself Identify 2 things I have to look forward to Identify 2 positive people in my life and 1 thing I appreciate about them Interventions: Learn ways to manage depressive symptoms accordingly and identify positive supports to manage life stressors and mood fluctuations. Modalities: Encourage groups, education on depression, provide CBT treatment, family meeting. DSM5/PS Stressors/Medical Prob Diagnosis' (DSM 5, Stressors, Medical): Bipolar disorder, depressed, with psychotic features Current GAF: 24 Treatment Team - Responsibilities of members of the treatment team include: - Medication Management- MD or COMMERCIAL HOUSEKEEPER - Medication Administration and Monitoring- Nurse - Group Therapy- Occupational Therapist - 1:1 Therapy,Disch Planning,family involvement-Molding Sander
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
[2016-08-22 16:29] VITALS: BP 123/72
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
[2016-08-22 20:01] VITALS: BP 141/69
--- NOTE | 2016-08-22 22:07 | NUR ---
PT HAS BEEN CALM, COOPERATIVE WITH STAFF/PEERS, AND COMPLIANT WITH UNIT RULES. PT HAD ENJOYED SPENDING TIME WITH HER WHO PAYED HER A VISIT DURING SHIFT. PT ATTENDED WRAP UP GROUP TONIGHT AND SPENT A GOOD DEAL OF THE SHIFT SOCIALIZING WITH PEERS AND INTERACTING WITH STAFF. PT SEEMS SLIGHTLY NERVOUS IN SPEECH AND IS QUITE QUIET WHEN TALKING. PT MOOD IS STABLE, AFFECT IS FULL RANGE, THOUGH AT TIMES SEEMS CONSTRICTED AND FLAT. PT APPETITE IS NORMAL AND COMMUNICATION PATTERNS ARE NORMAL. PT HAS NO MAJOR COMPLAINTS AND DENIES SI AT THIS TIME.
[2016-08-23 08:11] VITALS: BP 133/70
[2016-08-23 11:58] VITALS: BP 113/71
--- NOTE | 2016-08-23 12:32 | NUR ---
Pt is present on the unit, mood stable/elevated with full range affect, vital signs stable, no complaints or issues reported or observed, interating and social with peers and staff, reported in planning meeting +sleep/mood, pleasant, calm and cooperative.
--- NOTE | 2016-08-23 13:50 | CP SOUTH PROGRESS NOTE PSYCH ---
Psych (Inpt) Progress Note Progress Note Progress Note: I discussed this patient's progress to date, current mental status, treatment process in the context of the treatment plan, and discharge planning with staff/ team in the daily morning inpatient team meeting. I also met with the patient myself in individual session. A total of 15 minutes was spent with the patient with more than 50% spent in counseling and/or coordination of care. SUBJECTIVE: "Things are better than yesterday. Teodoro and I had a great visit last night." OBJECTIVE: Current Medications Sig/Gideon Start time Last Medication Dose Route Stop Time Status Admin Acetaminophen 500 MG Q6P PRN 08/21 0230 AC 08/21 PO 0233 Al Hydroxide/Mg 30 ML Q4-6 PRN PRN 08/21 1445 AC Hydroxide PO Aripiprazole 20 MG 08/23 220 AC PO Aripiprazole 25 MG QPM 08/20 2200 DC 08/22 PO 2137 Carbamazepine 200 MG 08,08/23 1545 AC PO Clotrimazole 1 ASHLI BID 08/22 0145 AC 08/23 TOP 0747 Lorazepam 1 MG Q6P PRN 08/20 2030 AC PO Magnesium Hydroxide 30 ML Q8P PRN 08/21 1445 AC PO Mirtazapine 15 MG AT BEDTIME 08/23 2199 UNVr PO Mirtazapine 30 MG AT BEDTIME 08/20 220 DC 08/22 PO 2137 Vital Signs Date Time Temp Pulse Resp B/P Pulse O2 O2 Flow FiO2 Ox Delivery Rate 08/23 1158 74 113/71 08/23 08 98.1 76 133/70 08/22 2000 98.1 104 141/69 08/22 1629 74 123/72 ASSESSMENT: Patient presents today in upbeat, euthymic mood. Sometimes laughing. She was happy that she had a good visit with her last night. Today she offers no complaints. Today's mood is in contrast to yesterday, when she appeared somewhat sullen and depressed. We discussed the patient's significant mood swings in team meeting, and believe that she would benefit from a mood stabilizer such as Tegretol. Depression:0/10; Anxiety:0/10 (with 10 the worst.) Denies suicidal ideation, homicidal ideation, auditory hallucinations, visual hallucinations, paranoid ideation. Patient states and also believes that she will not kill herself. States that she slept well last night, had good dreams. Her appetite is fine. Speech is well articulated, goal-directed, average in rate, volume and tone. The patient understands the risks/benefits/side effects of the medication including tegretol, and is agreeable to continue taking them. PLAN: Start Tegretol for mood stability. Decrease Abilify from 25mg, decrease mirtazapine from 30mg, as tegretol may induce Abilify and mirtazapine. Continue with current management as patient is improving. Continue to provide support and encouragement.
--- NOTE | 2016-08-23 14:48 | SOCIAL WORKER PROG NOTE PSYCH ---
Social Work Progress Note Progress Note Please include, when applicable: * Interviews with the patient * Interviews with family members * Assessments linked to the treatment plan * Additions to or changes in the treatment plan along with reasons for same * Contacts with family and significant others in treatment, including family meeting(s) * Family attitudes * Community resource contacts and liaison with other clinicians/agencies
[2016-08-23 16:09] VITALS: BP 137/80
--- NOTE | 2016-08-23 16:36 | SOCIAL WORKER PROG NOTE PSYCH ---
Social Work Progress Note Progress Note Patient presented with pleasant mood and affect congruent with mood. She reported doing well today. Patient appeared brighter today then yesterday. She was seen attending groups throughout the day and has been socializing with peers on the unit. Patient denies SI/HI at present. She reports looking forward [facility] Patient appeared much more organized today and did not speak negatively about her as she sometimes does. She is going to speak to him this evening about having a phone conference tomorrow. Patient was inquiring about her discharge and looking forward to returning home. She understands that we are unsure at this time when she will be returning home.
[2016-08-23 19:39] VITALS: BP 134/71
--- NOTE | 2016-08-23 22:03 | NUR ---
PT IS VISIBLE ON UNIT, VERY SOCIAL WITH PEERS. HAD VISIT FROM FAMILY THROUGHOUT THE EVENING. COOPERATIVE AND COMPLIANT. NO COMPLAINTS OR SI REPORTED TO THIS MHW. PT HAS A STABLE MOOD AND BRIGHT AFFECT.
--- NOTE | 2016-08-24 06:46 | NUR ---
PATIENT WAS UP TO BATHROOM A COUPLE OF TIMES, AWAKE SEVERAL TIMES TOTAL, CALM, QUIET, WITH WHISPERED SPEECH.
[2016-08-24 08:08] VITALS: BP 114/70
--- NOTE | 2016-08-24 10:52 | SOCIAL WORKER PROG NOTE PSYCH ---
Social Work Progress Note Progress Note We phone conferenced in patients [place] today to have a family meeting with myself, Chung Zamora APRN, and patient. Patients expressed his concerns with patients behaviors upon discharge last admission. He shared about patients paranoia with the neighbors and it consuming her thoughts. Patients did acknowledge his frustration with the situation and "losing his cool " from time to time. He inquired about treatment changes this time compared to her last hospitalization. Chung Marks APRN explained med changes that have occured since re-admission to the hospital, such as the addition of a mood stabalizer and decreasing the dose of her original medication. We also discussed the possibility of looking into a different antipsychotic to target more closely her paranoid thinking. was open to that and would like to continue to be updated with her progress in treatment.
[2016-08-24 12:01] VITALS: BP 143/79
--- NOTE | 2016-08-24 12:28 | NUR ---
PT IS ATTENDING GROUPS AND TAKING HER MEDS. SHE REPORTED FEELING A LITTLE TIRED TODAY FROM HER MEDS OTHERWISE HER MOOD IS CALM AND BEHAVIOR APPROPRIATE. SHE DENIES ANY SUICIDAL THOUGHTS OR THOUGHTS OF SELF HARM
--- NOTE | 2016-08-24 14:59 | CP SOUTH PROGRESS NOTE PSYCH ---
Psych (Inpt) Progress Note Progress Note Progress Note: I discussed this patient's progress to date, current mental status, treatment process in the context of the treatment plan, and discharge planning with staff/ team in the daily morning inpatient team meeting. I also met with the patient myself in individual session. A total of 50 minutes was spent with the patient with more than 50% spent in counseling and/or coordination of care. SUBJECTIVE: "I'm not having paranoid thoughts, that starts with negativity." OBJECTIVE: Current Medications Sig/Gideon Start time Last Medication Dose Route Stop Time Status Admin Acetaminophen 500 MG Q6P PRN 08/21 0230 AC 08/21 PO 0233 Al Hydroxide/Mg 30 ML Q4-6 PRN PRN 08/21 1445 AC Hydroxide PO Aripiprazole 20 MG 08/23 2200 AC 08/23 PO 2240 Aripiprazole 25 MG QPM 08/20 2200 DC 08/22 PO 2137 Carbamazepine 200 MG 08,08/23 1545 AC 08/24 PO 0837 Clotrimazole 1 ASHLI BID 08/22 0145 AC 08/24 TOP 0838 Lorazepam 1 MG Q6P PRN 08/20 2030 AC PO Magnesium Hydroxide 30 ML Q8P PRN 08/21 1445 AC PO Mirtazapine 15 MG AT BEDTIME 08/23 220 AC 08/23 PO 2241 Mirtazapine 30 MG AT BEDTIME 08/20 2200 DC 08/22 PO 2137 Vital Signs Date Time Temp Pulse Resp B/P Pulse O2 O2 Flow FiO2 Ox Delivery Rate 08/24 1201 79 143/79 08/24 0808 98.0 75 114/70 08/23 1939 97.7 84 134/71 08/23 1609 77 137/80 ASSESSMENT: Today I met with the patient individually, and later again in a conference call with her , along with social studies teacher Cyndy Messer Patient reports tolerating Tegretol well, for mood stability, without complaint. Nursing reports that patient appeared in an extremely upbeat mood yesterday, speaking with her roommate until late in the night. Today she presents with a somewhat more stable mood. Today during our meeting, we reviewed her case, and believe that it would be advantageous to discontinue Abilify and start olanzapine for continuing paranoid , and disorganized thoughts. I discussed this on the telephone with her , who was very reticent to have his try another medication. He states that the patient was stable for many years while taking Abilify. He states he will discuss this with his son, who is a pharmacist, and they will get back to me. Patient states that she would not feel comfortable starting a new medication without her 's support. Depression:0/10; Anxiety:0/10 (with 10 the worst.) Denies suicidal ideation, homicidal ideation, auditory hallucinations, visual hallucinations. She continues to have paranoid ideation, believing that people, in different settings such as her neighborhood, and that her doctor's office, speak about her disparagingly behind her back. She also believes that her speaks about her disparagingly with neighbors, a claim which he denies. Speech is well articulated, at times goal-directed and at times confused, average in rate, volume and tone. The patient understands the risks/benefits/side effects of the medication and is agreeable to continue taking them. PLAN: Continue mirtazapine, Abilify and Tegretol. Tegretol level on Sunday morning. Patient's states that he will call back tomorrow morning with his thoughts about starting olanzapine. Continue with current management as patient is improving. Continue to provide support and encouragement.
[2016-08-24 16:04] VITALS: BP 107/70; BP 126/80
[2016-08-24 19:54] VITALS: BP 125/72
--- NOTE | 2016-08-24 21:38 | NUR ---
PT HAS BEEN CALM, COOPERATIVE WITH STAFF AND PEERS, AND COMPLIANT WITH UNIT RULES THROUGHOUT SHIFT. PT RECIEVED A VISIT FROM TODAY. PT IS SLIGHTLY HYPERVERBAL, AND APPEARS BRIGHT IN AFFECT WHEN CONVERSING WITH HER. PT IS MOOD IS STABLE, AFFECT IS BRIGHT THOUGH EXHIBITS FULL RANGE, APPETITE IS NORMAL, AND COMMUNCIATION IS NORMAL. PT HAS NO MAJOR COMPLAINTS AND DENIES SI AT THIS TIME.
--- NOTE | 2016-08-25 04:29 | NUR ---
PT SLEPT 5-6 HOURS, NO ISSUES.
[2016-08-25 08:18] VITALS: BP 135/68
--- NOTE | 2016-08-25 09:57 | SOCIAL WORKER PROG NOTE PSYCH ---
Social Work Progress Note Progress Note Spoke Yue Clemens , [id number] - provided updated clinical to Ms. Clemens requested continued stay. Next review due . Ms. Clemens wants Tameka to consider [facility] program such as [place]. She wants collateral from Dr. Gould of [facility] and is there history of non0-compliance of meds in the past. Also results from Tegretol level. She wants to see if will agree to Olanzapine. AUTH# [id number].
--- NOTE | 2016-08-25 11:28 | SOCIAL WORKER PROG NOTE PSYCH ---
Social Work Progress Note Progress Note Family meeting scheduled with Pt's for Sunday at 11am with Chiara and possibly Dr. Gipson. was asked to have son present over the phone during the meeting since he is not available to come in person.
[2016-08-25 12:09] VITALS: BP 129/65
--- NOTE | 2016-08-25 13:21 | NUR ---
PT IS COMPLIANT AND COOPEARTIVE. PT IS OUT IN COMMUNITY INTERACTING WELL WITH STAFF AND PEERS. PT IS VERY SOICAL WITH PEERS. PT MOOD IS STABLE WTIH A FULL RANGE AFFECT. PT TALKS VERY SOFTLY AND HAS ASKED TO RAISE HER VOICE. PT DENIES SI. PT OFFERED NO COMPLIANTS
--- NOTE | 2016-08-25 14:09 | SOCIAL WORKER PROG NOTE PSYCH ---
Social Work Progress Note Progress Note Met with Pt 1:1. Told her there is a family meeting planned for Sunday at 11. Pt presents as soft spoken with mildly delayed speech and some thought blocking, Thoughts are disorganize and tangential. 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 Pt was talking for about 1 hour and this social media marketing specialist barely had an opportunity to ask her any questions. Pt's affect was labile depending on what she was talking about. Some moments she was flat or depressed, other moments she cries, other moments she laughed. At some points she would speak with her eye closed stating that she felt very tired because of her medication. Pt did identify that she feels less drowsy than yesterday. She also report her mood has improved and she feels less depressed. She denies any active SI. pt expresses that during the family meeting on Sunday she would like to address with her the way he speak to her because she knows that he care about her, but she thinks that he swears and yells at her too much. Pr was provided with a journal and pen to write her thoughts.
[2016-08-25 16:10] VITALS: BP 142/81
--- NOTE | 2016-08-25 16:28 | CP SOUTH PROGRESS NOTE PSYCH ---
Psych (Inpt) Progress Note Progress Note Progress Note: I discussed this patient's progress to date, current mental status, treatment process in the context of the treatment plan, and discharge planning with staff/ team in the daily morning inpatient team meeting. I also met with the patient myself in individual session. A total of 15 minutes was spent with the patient with more than 50% spent in counseling and/or coordination of care. SUBJECTIVE: "I feel more confident socially." OBJECTIVE: Current Medications Sig/Gideon Start time Last Medication Dose Route Stop Time Status Admin Acetaminophen 500 MG Q6P PRN 08/21 0230 AC 08/21 PO 0233 Al Hydroxide/Mg 30 ML Q4-6 PRN PRN 08/21 1445 AC Hydroxide PO Aripiprazole 20 MG 08/23 220 AC 08/24 PO 2027 Carbamazepine 200 MG 799,08/23 1545 AC 08/25 PO 0811 Clotrimazole 1 ASHLI BID 08/22 0145 AC 08/25 TOP 0813 Lorazepam 1 MG Q6P PRN 08/20 2030 AC PO Magnesium Hydroxide 30 ML Q8P PRN 08/21 1445 AC PO Mirtazapine 15 MG AT BEDTIME 08/23 220 AC 08/24 PO 2028 Vital Signs Date Time Temp Pulse Resp B/P Pulse O2 O2 Flow FiO2 Ox Delivery Rate 08/25 1209 69 129/65 08/25 0818 96.8 64 135/68 08/24 1954 98.1 81 125/72 08/24 1604 73 126/80 ASSESSMENT: Today the patient states that she is feeling well, states that she is no longer feeling overly sedated during the day from Tegretol. She is willing to continue taking Tegretol for mood stability. She is however deferring to her 's opinion about changing any other medication. She presents as somewhat confused, disorganized and tangential. I spoke with the patient's first thing this morning. He stated that he and their son, who is a pharmacist, discussed our suggestion that we discontinue Abilify because it does not seem to be helping any longer, and start olanzapine. They have decided against that suggestion at this time, preferring that the patient remain on Abilify along with Tegretol. We have arranged for a Sunday 11 AM family meeting with the , and hopefully with the son by telephone, and at that time we will discuss the patient's progress, medication management, and discharge planning. Depression:0/10; Anxiety:0/10 (with 10 the worst.) Denies suicidal ideation, homicidal ideation, auditory hallucinations, visual hallucinations, paranoid ideation. States that she took a nap yesterday afternoon, and then had a good night sleep. States that her appetite is very good. Speech is well articulated, slow in rate, quiet in volume and tone. She is often tangential. Calm and cooperative. The patient understands the risks/benefits/side effects of the medication and is agreeable to continue taking them. PLAN: Anticipate family meeting on Sunday at 11 AM. Continue with current management as patient is improving. Continue to provide support and encouragement.
[2016-08-25 20:02] VITALS: BP 132/81
--- NOTE | 2016-08-25 22:00 | NUR ---
PT IS VISIBLE ON UNIT, SOCIALIZING WITH PEERS AND STAFF. VERY PLEASANT AND COOPERATIVE. PT ATTENDED WRAP UP MEETING AND PARTICIPATED. PT IS SLOW TO RESPOND WHEN IN CONVERSATION BUT IS ALSO HYPERVERBAL. NO SI OR COMPLAINTS REPORTED. PT HAS A STABLE MOOD AND FULL RANGE AFFECT.
[2016-08-26 08:18] VITALS: BP 145/86
[2016-08-26 11:56] VITALS: BP 119/71
--- NOTE | 2016-08-26 12:26 | NUR ---
PT REPORTS HER MOOD IS GOOD. SHE IS SLIGHTLY HYPERVERBAL AND GIDDY AT TIMES OTHERWISE HER AFFECT IS FULL RANGE AND MOOD CALM AND COOPERATIVE. SHE IS COMPLIANT WITH HER MED REGIME AND TREATMENT PLAN. SHE DENIES ANY THOUGHTS OF SUICIDE OR SELF HARM
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
[2016-08-26 16:11] VITALS: BP 138/72
--- NOTE | 2016-08-26 18:11 | NUR ---
PT IS COMPLIANT AND COOPERATIVE. MOOD IS STABLE WITH A CONSTRICTED AFFECT. PT DENIES SI AT THIS TIME, NO COMPLAINTS OFFERED. NO OBSERVATIONS OF ACTIVE PSYCHOSIS/BIZARRE BEHAVIOR. PT IS PRESENT IN THE COMMUNITY AND INTERACTING WELL WITH PEERS AND STAFF. VITALS ARE STABLE, APPETITE IS GOOD.
[2016-08-26 20:01] VITALS: BP 135/74
--- NOTE | 2016-08-27 06:47 | NUR ---
PATIENT WAS AWAKE SEVERAL TIMES DURING THE NIGHT, BUT OVERALL ALL APPEARED TO SLEEP 1/2 TO 3/4 OF NIGHT.
[2016-08-27 08:10] VITALS: BP 112/68
[2016-08-27 12:05] VITALS: BP 114/67
--- NOTE | 2016-08-27 14:11 | NUR ---
PT IS COMPLIANT AND COOPERATIVE. MOOD IS STABLE WITH A CONSTRICTED AFFECT. PT DENIES SI AT THIS TIME, NO COMPLAINTS OFFERED. PT IS PRESENT IN THE COMMUNITY AND INTERACTING WELL WITH PEERS AND STAFF. PT IS ATTENDING GROUPS. VITALS ARE STABLE, APPETITE IS GOOD.
--- NOTE | 2016-08-27 15:00 | CP SOUTH PROGRESS NOTE PSYCH ---
Psych (Inpt) Progress Note Progress Note Include the following elements, when applicable: Involvement in the active treatment of the patient with behavioral observations of the patient and the patient's response to the treatment. Review of the ongoing treatment process in the context of the treatment plan. Indication of how multi-disciplinary staff members are carrying out the treatment plan. Plans for future interventions and recommendations for revision of the treatment plan. Liaison with other physicians/providers. Progress Note: Stated that she had some coffee today, went off in a tangent about her coffee drinking, difficult to redirect. 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 Less preoccupied with her swearing at her today though did mention it still. MSE: middle aged woman, well groomed. No psychomotor changes. Eye contact better today. Less monotone, somewhat more reactive affect today. Mood euthymic. Speech wnl. Thought process tangential; occasional thought blocking. No paranoid ideation toward her family today. No evidence of suicidal thoughts. Denied any AH. Insight impaired, judgment impaired. A: 61 y/o woman w/ hx psychotic illness, s/p recent discharge, presents depressed, withdrawn, with thought disorganization, paranoia and tangentiality. Plan: tegretol level 0.7 wnl. No medication changes. Somewhat more reactive today. Continue current plan of care.
[2016-08-27 16:04] VITALS: BP 139/78
[2016-08-27 19:46] VITALS: BP 138/81
--- NOTE | 2016-08-27 21:21 | NUR ---
Pt is out in the community mood is stable affect is in full range. Compliant and cooperative with the staff, vital signs are stable c/o no pain, pt appetite is good. WIll continue to monitor the pt overnight.
[2016-08-28 07:58] VITALS: BP 124/76
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
[2016-08-28 12:37] VITALS: BP 144/75
--- NOTE | 2016-08-28 14:00 | NUR ---
Pt was visible in the milieu today. Her goal was "to prepare for her family meeting". Pt shared in planning meeting that she was confident about her family meeting. Pt attended both focus group, and the activity group this afternoon. She has some interactions with her peers, and has been coompliant with the rules of the unit. Pt denies suicidal thoughts, and thoughts to self- injure herself.
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
[2016-08-28 15:44] VITALS: BP 145/87
[2016-08-28 19:50] VITALS: BP 149/85
--- NOTE | 2016-08-28 21:53 | NUR ---
PT IS VISIBLE ON UNIT, SOCIALIZING WITH PEERS AND STAFF. VISITED WITH THROUGHOUT THE EVENING. VERY PLEASANT AND COOPERATIVE. ATTENDED WRAP UP MEETING AND PARTICIPATED. NO COMPLAINTS OR SI REPORTED. PT HAS A STABLE MOOD AND FULL RANGE AFFECT.
[2016-08-29 07:34] VITALS: BP 121/75
[2016-08-29 12:22] VITALS: BP 141/72
--- NOTE | 2016-08-29 13:53 | NUR ---
PT REPORTS FEELING SLEEPY FROM HER NEW MEDS AND NEEDED REMINDING THAT NEW MEDS CAN OFTEN MAKE HER SLEEPY AT FIRST BUT SHE SHOULD ADJUST. PT IS FOCUSED ON MED SIDE EFFECTS AND IS ENC TO REPORT HOW SHE FEELS AND THE MD WILL MAKE MED ADJUSTMENTS. PT IS ATTENDING GROUPS AND DENIES ANY THOUGHTS OF SUICIDE OR SELF HARM
--- NOTE | 2016-08-29 15:16 | SOCIAL WORKER PROG NOTE PSYCH ---
Social Work Progress Note Progress Note Pt was very happy to share some good news about her home in [place], she reports hr called and told her it had sold, and that she would be moving forward with plans to move to [place]. 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 She states she told her and son this. She is connecting with patients here, and denies feeling si/hi/ah/vh. She was tearful, and tangential but seems with the relief of moving her mood is approving.
[2016-08-29 16:09] VITALS: BP 145/79
[2016-08-29 19:38] VITALS: BP 142/68
--- NOTE | 2016-08-29 19:51 | CP SOUTH PROGRESS NOTE PSYCH ---
Psych (Inpt) Progress Note Progress Note Progress Note: I discussed this patient's progress to date, current mental status, treatment process in the context of the treatment plan, and discharge planning with staff/ team in the daily morning inpatient team meeting. I also met with the patient myself in individual session. A total of 15 minutes was spent with the patient with more than 50% spent in counseling and/or coordination of care. SUBJECTIVE: "I'm better. I slept until 6:30am. No dreams, that's good." OBJECTIVE: Current Medications Sig/Gideon Start time Last Medication Dose Route Stop Time Status Admin Acetaminophen 500 MG Q6P PRN 08/21 0230 AC 08/21 PO 0233 Al Hydroxide/Mg 30 ML Q4-6 PRN PRN 08/21 1445 AC Hydroxide PO Carbamazepine 100 MG 0800 08/29 0800 AC 08/29 PO 0838 Carbamazepine 200 MG AT BEDTIME 08/28 2200 AC 08/28 PO 2213 Lorazepam 1 MG Q6P PRN 08/28 1345 AC PO Magnesium Hydroxide 30 ML Q8P PRN 08/21 1445 AC PO Olanzapine 15 MG AT BEDTIME 08/29 2200 AC PO Olanzapine 10 MG AT BEDTIME 08/28 2200 DC 08/28 PO 2213 ASSESSMENT: Patient appears better than yesterday. Less sedated, less tangential in speech. She appears to be increasingly insightful, stating "Sometimes I hear voices of my neighbors talking about me, which leads to paranoia, it snowballs pretty fast." She appears less sedated in the morning after decreasing the morning dose of Tegretol to 100mg (from 200mg). She reports tolerating her medications well, to good effect. Depression: 0 /10; Anxiety: 0 /10 (with 10 the worst.) Denies suicidal ideation, homicidal ideation, auditory hallucinations, visual hallucinations. Denies paranoid ideation at this time. Speech is well articulated, sometimes goal-directed, but at times tangential, average in rate, volume and tone. Calm and cooperative. Sometimes overly talkative. States she slept well last night. Her appetitie is good. The patient understands the risks/benefits/side effects of the medication and is agreeable to continue taking them. PLAN: Increase bedtime Zyprexa to 15mg QHS for continuing disorganized, tangential thoughts. Continue with other current management as patient is improving. Continue to provide support and encouragement.
--- NOTE | 2016-08-29 22:45 | NUR ---
PT IS VISIBLE ON UNIT, VISITING WITH AND SOCIALIZING WITH PEERS. VERY PLEASANT AND COOPERATIVE. ATTENDED WRAP UP MEETING AND PARTICIPATED ALTHOUGH PT WAS HYPERVERBAL. NO COMPLAINTS OR SI REPORTED. PT HAS A STABLE MOOD AND FULL RANGE AFFECT.
[2016-08-30 07:44] VITALS: BP 128/77
--- NOTE | 2016-08-30 11:28 | NUR ---
Pt was visible in the milieu today. During planning meeting, pt came up with the goal to "attend all groups". Pt has been reaching her goal and attending all groups. In the milieu, pt has been interacting with her peers, and cooperative with staff direction. When asked pt denies thoughts of hurting herself, and reports no suicidal thoughts.
[2016-08-30 12:26] VITALS: BP 128/76
--- NOTE | 2016-08-30 14:30 | CP SOUTH PROGRESS NOTE PSYCH ---
Psych (Inpt) Progress Note Progress Note Progress Note: I discussed this patient's progress to date, current mental status, treatment process in the context of the treatment plan, and discharge planning with staff/ team in the daily morning inpatient team meeting. I also met with the patient myself in individual session. A total of 15 minutes was spent with the patient with more than 50% spent in counseling and/or coordination of care. SUBJECTIVE: "I'm attending all the meetings! I would agree to IOP. I cannot have a conversation now. I'm confident that I could do it." OBJECTIVE: Current Medications Sig/Gideon Start time Last Medication Dose Route Stop Time Status Admin Acetaminophen 500 MG Q6P PRN 08/21 0230 AC 08/21 PO 0233 Al Hydroxide/Mg 30 ML Q4-6 PRN PRN 08/21 1445 AC Hydroxide PO Carbamazepine 100 MG 0800 08/29 0800 AC 08/30 PO 0751 Carbamazepine 200 MG AT BEDTIME 08/28 2200 AC 08/29 PO 2221 Lorazepam 1 MG Q6P PRN 08/28 1345 AC PO Magnesium Hydroxide 30 ML Q8P PRN 08/21 1445 AC PO Olanzapine 15 MG AT BEDTIME 08/29 2200 AC 08/29 PO 2221 Olanzapine 10 MG AT BEDTIME 08/28 2200 DC 08/28 PO 2213 Vital Signs Date Time Temp Pulse Resp B/P Pulse O2 O2 Flow FiO2 Ox Delivery Rate 08/30 1226 74 128/76 08/30 0744 97.5 81 128/77 08/29 1938 98.1 81 142/68 08/29 1609 72 145/79 ASSESSMENT: Patient reports she is doing well. Tolerating olanzapine 15 mg at bedtime well, apparently to good effect. States that she slept well last night, awoke without feeling groggy. At the time of our visit today in the early afternoon, patient appeared awake and alert. She offered no complaints. Depression:0/10; Anxiety:0/10 (with 10 the worst.) Denies suicidal ideation, homicidal ideation, auditory hallucinations, visual hallucinations, paranoid ideation. Patient denies having paranoid thoughts today, also denies any auditory hallucinations. Speech is well articulated, slow in rate, average in volume and tone. Patient continues to display disorganized thoughts, however is improving. She continues to have goal oriented thoughts, which sometimes become tangential. She is still very talkative, but is getting better. Today she presented at our visit smiling , at times giggling and laughing. The patient understands the risks/benefits/side effects of the medication and is agreeable to continue taking them. PLAN: Continue with current management as patient is improving. Continue to provide support and encouragement.
[2016-08-30 16:05] VITALS: BP 142/73
--- NOTE | 2016-08-30 16:19 | SOCIAL WORKER PROG NOTE PSYCH ---
Social Work Progress Note Progress Note Patient appears to be improving since med change. Patient still somewhat disorganized but appears more logical in discussion and thoughts. She still remains tangential at times in discussion but is able to refocus if this senior writer addresses focus with her. Patient has agreed to IOP post discharge from the hospital, although it is unclear when we are planning for discharge at this time. Patient has been attending groups on the unit regularly and is appropriate with staff and peers. She denies SI/HI/AH/VH at present and continues to show improvement in treatment.
--- NOTE | 2016-08-30 16:28 | SOCIAL WORKER PROG TO GOALS ---
Progress Toward Goals Strengths/Capabilities: Able to ask for help Physical Limitations (Interventions): n/a Discharge Plan: IOP Problem/Goals #1 Problem #1: suicidal ideation Goal (Short Term): Today I will attend 2 groups Today I will identify 2 stressors Today I will identify 2 positive supports Today I will work on recognizing 3 emotions I am feeling Goal (Glove [employer] Inspector): Be free of suicidal thoughts/attempts Develop 3 coping skills to deal with depression Identify 3 positive support systems to call in crisis Develop a crisis plan with 3 srivastava people Identify 2 positive traits per week about myself Identify 2 things I have to look forward to Identify 2 positive people in my life and 1 thing I appreciate about them Interventions: Learn ways to manage depressive symptoms accordingly and identify positive supports to manage life stressors and mood fluctuations. Progress: Patient appears to be making some improvement since med change from Abilify to Zyprexa. Patient less disorganized in thoughts, still tangential and times but can be redirected. Patient has agreed to IOP upon discharge from hospital. She is attending groups on the unit.
[2016-08-30 20:17] VITALS: BP 135/73
--- NOTE | 2016-08-30 23:07 | NUR ---
PT IS CALM, COOPERATIVE WITH STAFF AND PEERS, AND COMPLIANT WITH UNIT RULES. PT ENJOYED A VISIT FROM DURING VISITING HOURS. PT MOOD NIS STABLE, AFFECT IS BRIGHT, THOUGH ALSO EXPRESSES FULL RANGE AT TIMES, PT IS HYPERVERBAL, AND APPETITE IS NORMAL. PT DENIES SI AT THIS TIME.
--- NOTE | 2016-08-31 04:13 | NUR ---
Patient slept well, awake one time to the bathroom. No issues.
[2016-08-31 07:52] VITALS: BP 141/79
[2016-08-31 12:06] VITALS: BP 135/77
--- NOTE | 2016-08-31 12:12 | CP SOUTH PROGRESS NOTE PSYCH ---
Psych (Inpt) Progress Note Progress Note Progress Note: I discussed this patient's progress to date, current mental status, treatment process in the context of the treatment plan, and discharge planning with staff/ team in the daily morning inpatient team meeting. I also met with the patient myself in individual session. A total of 15 minutes was spent with the patient with more than 50% spent in counseling and/or coordination of care. SUBJECTIVE: "My sleep was much better than in the past. No nightmares last night." OBJECTIVE: Current Medications Sig/Gideon Start time Last Medication Dose Route Stop Time Status Admin Acetaminophen 500 MG Q6P PRN 08/21 0230 AC 08/21 PO 0233 Al Hydroxide/Mg 30 ML Q4-6 PRN PRN 08/21 1445 AC Hydroxide PO Carbamazepine 100 MG 0800 08/29 0800 AC 08/31 PO 0845 Carbamazepine 200 MG AT BEDTIME 08/28 2200 AC 08/30 PO 2207 Lorazepam 1 MG Q6P PRN 08/28 1345 AC PO Magnesium Hydroxide 30 ML Q8P PRN 08/21 1445 AC PO Olanzapine 15 MG AT BEDTIME 08/29 220 AC 08/30 PO 2207 Vital Signs Date Time Temp Pulse Resp B/P Pulse O2 O2 Flow FiO2 Ox Delivery Rate 08/31 075 96.0 70 141/79 08/30 2017 97.6 84 135/73 08/30 1605 79 142/73 08/30 1226 74 128/76 ASSESSMENT: Patient appears to be slowly improving. She is less tangential, more insightful, although she still appears to have some thought blocking. Does not appear hyperverbal this morning. Alert and oriented 3. Patient was a little bit sleepy when I saw her first thing this morning, however stated that yesterday she did not feel oversedated. States that she slept much better last night, after olanzapine was increased to 15 mg at bedtime. Denies any nightmares last night, although she said she had strange dreams 2 nights ago. Reports that her appetite is good. She is denying auditory hallucinations, and states she does not feel paranoid today. She reports having a "nice visit" with her last night. She says that they have sold their home, and will be moving to a condominium. Depression:0/10; Anxiety:0/10 (with 10 the worst.) Denies suicidal ideation, homicidal ideation, auditory hallucinations, visual hallucinations, paranoid ideation. Speech is well articulated, goal-directed, slow in rate, average in volume and tone. The patient understands the risks/benefits/side effects of the medication and is agreeable to continue taking them. PLAN: Continue with current management as patient is improving. Continue to provide support and encouragement.
--- NOTE | 2016-08-31 13:39 | NUR ---
PT IS COMPLIANT AND COOPERATIVE. MOOD IS STABLE WITH A CONSTRICTED AND EUTHYMIC AFFECT. PT DENIES SI AT THIS TIME, NO COMPLAINTS OFFERED. PT IS PRESENT IN THE COMMUNITY AND INTERACTING WELL WITH PEERS AND STAFF. PT IS ATTENDING GROUPS. VITALS ARE STABLE, APPETITE IS GOOD.
[2016-08-31 15:47] VITALS: BP 150/75
[2016-08-31 16:09] VITALS: BP 150/75
--- NOTE | 2016-08-31 16:14 | SOCIAL WORKER PROG NOTE PSYCH ---
Social Work Progress Note Progress Note Patient continues to show improvement in her treatment. She is able to focus for longer periods of time, hold clearer conversation and paranoia seems to be minimizing. We are tentatively planning to discharge patient on Sunday09/04/16 with plan for patient to attend [facility]. Patients is aware of this and agrees with this plan. He is unable to come in for a family meeting prior to discharge due to having to take care of his 3 year old grandaughter during the day. He is willing to have phone conference day of discharge to discuss thoroughly the discharge plan. He has also agreed that he has searched the house for extra medication and believes he has found all extra medication in addition to her previous prescription from the hospital. He has agreed to lock everything up and continue to monitor her medication once she returns home. He also reported seing improvements in patient and feels good about her staying in the hospital over the weekend before returning home next week.
[2016-08-31 19:44] VITALS: BP 148/76
--- NOTE | 2016-08-31 22:14 | NUR ---
PT IS CALM, COOPERATIVE WITH STAFF AND PEERS, AND COMPLIANT WITH UNIT RULES. PT IS IS [place], SOCIALIZING WITH STAFF AND PEERS. PT RECEIVED A VISIT FROM TODAY DURING VISITING HOURS. PT MOOD IS STABLE, AFFECT IS ON THE BRIGHTER SIDE OF FULL RANGE, COMMUNICATION IS NORMAL, AND APPETITE IS NORMAL. PT DENIES SI AT THIS TIME.
[2016-09-01 07:35] VITALS: BP 137/81
--- NOTE | 2016-09-01 12:09 | CP SOUTH PROGRESS NOTE PSYCH ---
Psych (Inpt) Progress Note Progress Note Progress Note: I discussed this patient's progress to date, current mental status, treatment process in the context of the treatment plan, and discharge planning with staff/ team in the daily morning inpatient team meeting. I also met with the patient myself in individual session. A total of 15 minutes was spent with the patient with more than 50% spent in counseling and/or coordination of care. SUBJECTIVE: "I'm doing very good." OBJECTIVE: Current Medications Sig/Gideon Start time Last Medication Dose Route Stop Time Status Admin Acetaminophen 500 MG Q6P PRN 08/21 0230 AC 08/21 PO 0233 Al Hydroxide/Mg 30 ML Q4-6 PRN PRN 08/21 1445 AC Hydroxide PO Carbamazepine 100 MG 0800 08/29 0800 AC 09/01 PO 0755 Carbamazepine 200 MG AT BEDTIME 08/28 2200 AC 08/31 PO 2150 Lorazepam 1 MG Q6P PRN 08/28 1345 DC PO Magnesium Hydroxide 30 ML Q8P PRN 08/21 1445 AC PO Olanzapine 20 MG AT BEDTIME 09/01 2200 UNVr PO Olanzapine 15 MG AT BEDTIME 08/29 2200 DC 08/31 PO 2150 Vital Signs Date Time Temp Pulse Resp B/P Pulse O2 O2 Flow FiO2 Ox Delivery Rate 09/01 0735 97.1 82 137/81 08/31 1944 97.8 88 148/76 08/31 1609 88 150/75 08/31 1547 88 150/75 08/31 1206 72 135/77 ASSESSMENT: Patient continues to be making slow improvement. Speaking clearly, there is less noticeable thought blocking, she is less tangential, less talkative, mood appears less labile. She repeated the same story three times within 15 minutes. She remains pleasant, calm and cooperative. As per nursing report she has been participating in group activities. Of note, she states that she does not feel paranoid. She reports feeling completely awake this morning, no longer is showing signs of tiredness as she has over the past few days. Depression:0/10; Anxiety:0/10 (with 10 the worst.) Denies suicidal ideation, homicidal ideation, auditory hallucinations, visual hallucinations, paranoid ideation. She reports that she slept well last night without nightmares. Her appetite is okay. Speech is well articulated, goal-directed, average in rate, volume and tone. Alert and oriented 3. The patient understands the risks/benefits/side effects of the medication and is agreeable to continue taking them. PLAN: Increase olanzapine to 20 mg for continuing tangential, disorganized thoughts. Continuing improvement. Anticipate dischage early next week, perhaps Sunday. Continue with other current management as patient is improving. Continue to provide support and encouragement.
[2016-09-01 12:44] VITALS: BP 134/74
--- NOTE | 2016-09-01 16:23 | SOCIAL WORKER PROG NOTE PSYCH ---
Social Work Progress Note Progress Note Patient is preparing for discharge home on Sunday. Patient shared a great amount today about looking forward to discharging today and also shared about her thoughts about the upcoming move her and her will be facing. Patient shared about good memories at her current house and feeling in some ways sad about leaving. She was able to identify the positives that the move will bring and looking forward to the change. She reported today feeling more confident in herself then she could ever remember before. Patient is forward thinking at this time and looking forward to discharging on Sunday. She has intake at [facility] at 12:45 on Sunday and we will be calling her to discuss discharge plan prior to discharge.
[2016-09-01 16:25] VITALS: BP 141/84
[2016-09-01 19:32] VITALS: BP 127/77
--- NOTE | 2016-09-01 22:14 | NUR ---
Pt is out in the community affect is flat. Pt is observed to be paranoid at times watching everybody. Pt came for vitals. Pt vital signs are stable c/o no pain. Will continue to monitor the pt overnight.
[2016-09-02 07:51] VITALS: BP 129/75
[2016-09-02 11:58] VITALS: BP 125/62
--- NOTE | 2016-09-02 13:00 | NUR ---
PT WAS VISIBLE IN THE [place] FOR THE MOST PART OF THE DAY. IN PLANNING MEETING PT SHARED NATI SHE DID NOT SLEEP WELL. SHE CAME UP WITH THE GOAL TO 'ATTEND GROUPS". PT DID COME TO BOTH GROUPS THIS MORNING BUT DID NOT STAY IN FOCUS DUE TO FEELING DROWSY. OTHERWISE, PT HAS BEEN VISIBLE AND COMPLIANT WITH STAFF DIRECTION. WHEN ASKED PT DENIES THOUGHTS OF SELF HARM, AND SUICIDE.
--- NOTE | 2016-09-02 13:36 | CP SOUTH PROGRESS NOTE PSYCH ---
Psych (Inpt) Progress Note Progress Note Include the following elements, when applicable: Involvement in the active treatment of the patient with behavioral observations of the patient and the patient's response to the treatment. Review of the ongoing treatment process in the context of the treatment plan. Indication of how multi-disciplinary staff members are carrying out the treatment plan. Plans for future interventions and recommendations for revision of the treatment plan. Liaison with other physicians/providers. Progress Note: Notes reviewed, discussed progress with nursing staff, interview patient this morning. Tameka was pleasant and cooperative, her speech was mildly pressured, copious, and thought process was tangential. Continue to tell me of her anticipated move from [place] to [place]. However, she feels she continues to improve, and looks forward to discharge. She denies SI or HI. MSE: Well appearing, well groomed female dressed appropriately. Cooperative with interview with fair eye contact. Speech was increased in amount, normal rate, volume, tone, prosody. Mood was "doing pretty good". Affect was constricted, non-labile. Thought process was tangential, thought content without SI or HI. Cognition was grossly intact, insight and judgment were fair. Vitals reviewed and within normal limits. No new laboratory results. A/P: Resolving symptoms of thought disorder. Continue present management as per primary team.
[2016-09-02 15:47] VITALS: BP 139/69
[2016-09-02 20:01] VITALS: BP 121/70
--- NOTE | 2016-09-02 23:29 | NUR ---
PATIENT PLEASANT COOPERATIVE, HYPERVERBAL AT TIMES; STILL REPORTING DIFFICULTY SLEEPING; TALKED IN WRAP UP ABOUT POOR SLEEP, BUT OTHERWISE IS DOING BETTER; MOOD IMPROVED; PATIENT DENIES S/I AT THIS TIME.
--- NOTE | 2016-09-03 05:49 | NUR ---
PATIENT WAS AWAKE SEVERAL TIMES DURING THE NIGHT; SHE HAD A DISTURBING NIGHTMARE IN WHICH SHE DREAMED THAT HER WAS SERVING HER WITH DIVORCE PAPERS; SHE SLEPT IN THE LOUNGE THE REST OF THE NIGHT.
[2016-09-03 07:41] VITALS: BP 138/80
[2016-09-03 12:01] VITALS: BP 121/74
--- NOTE | 2016-09-03 12:05 | CP SOUTH PROGRESS NOTE PSYCH ---
Psych (Inpt) Progress Note Progress Note Include the following elements, when applicable: Involvement in the active treatment of the patient with behavioral observations of the patient and the patient's response to the treatment. Review of the ongoing treatment process in the context of the treatment plan. Indication of how multi-disciplinary staff members are carrying out the treatment plan. Plans for future interventions and recommendations for revision of the treatment plan. Liaison with other physicians/providers. Progress Note: Notes reviewed, discussed progress with nursing staff, interviewed patient this morning. Tameka was pleasant and cooperative. She reported some difficulties last evening due to disturbance on the unit from another patient. Also had some nightmares last night of her her. This morning her presentation is quite similar to yesterday's, repeats same story about moving from [place] to [place], as well as about her 's heart condition. She feels her mood is improving, looks forward to discharge, denies overt psychotic symptoms. She denies SI or HI. MSE: Well appearing, well groomed female dressed appropriately in a bright pink [place] sweatshirt. Cooperative with interview with fair eye contact. Speech was increased in amount, normal rate, volume, tone, prosody. Mood was "eh last night was tough". Affect was constricted, non-labile. Thought process was tangential, thought content without SI or HI. Cognition was grossly intact, insight and judgment were fair. Vitals reviewed and within normal limits. No new laboratory results. A/P: Resolving symptoms of thought disorder. Continue present management as per primary team.
--- NOTE | 2016-09-03 14:23 | NUR ---
OUT IN COMMUNITY INTERACTING WITH PEERS. REPORTED MILD IRRITATION WITH ONE OTHER PATIENT AND RETURNED TO ROOM FOR SHORT PERIOD. MOOD IS STABLE, EUTHYMIC. NO APPARENT OR REPORTED PARONOIA. DENIED THOUGHTS OF SELF HARM WHEN ASKED.
[2016-09-03 16:01] VITALS: BP 141/76
[2016-09-03 19:49] VITALS: BP 113/66
--- NOTE | 2016-09-04 04:30 | NUR ---
AWAKE FEW TIMES DURING THE NIGHT.
[2016-09-04 07:38] VITALS: BP 118/69
--- NOTE | 2016-09-04 08:07 | DISCHARGE SUMMARY REPORT-PSYCH ---
Visit Information Visit Dates/Diagnosis' Admission Date: 08/21/16 Discharge Date: 09/04/16 Reason for Admission: Patient was brought into the emergency department by family, patient complaining of exacerbation of confusion, not oriented to place or time. Patient had been discharged from [facility] 2 days prior to arrival. As per crisis note: "Her states she almost immediately became paranoid when returned home. She was whispering to herself, making comments about perjury and , and was consumed with the ongoing issues with her neighbor. Upon evaluation this evening, pt is tearful, pointing to her knee and saying it's clicking, she is reciting the word paranoid quietly to herself." Psy Discharge Primary Diag: Bipolar disorder, depressed with psychotic features. Psy Discharge Secondary Diag: Borderline DM, diet controlled. Hospital Course Significant Lab Findings: Lab Free T4 1.55 ng/dL 08/20/16 1915 TSH 1.490 uIU/mL 08/20/16 1915 Carbamazepine 7.0 ug/mL 08/26/16 0610 Course Complications: None Consultations: Patient was seen for an admission examination by Dr. Corbin. Please refer to her note for additional information. Allergies: Coded Allergies: bupropion (From WELLBUTRIN) (UNKNOWN PT STATES SHE CAN NOT TAKE 150MG 08/20/16) epinephrine (UNKNOWN 08/14/16) fluoxetine (UNKNOWN 08/14/16) nitrofurantoin (UNKNOWN 08/14/16) Hospital Course/TX Response: The patient was monitored on the unit for safety, and delusional, paranoid thoughts. She participated in multimodal treatments on the unit. She was medicated for Zyprexa, which was eventually titrated up to a dose of 20 mg at bedtime for continuing paranoid and disorganized thoughts. She was medicated with Tegretol for mood stability. She reported tolerating these medications well, to good effect. A family meeting was held along with the patient, her , their son by conference call, myself and social service technician Cyndy Weaver LCSW. We discussed the risks, benefits, and side effects of the medications that the patient is taking. The patient's and son agreed to support the patient in taking these medications, and in her continuing treatment at [facility] after discharge. A second family meeting was held with the patient, and her by phone on the day of discharge to review the patient's care, and discharge instructions including medications. Today, the day of discharge, she presents in good cheer, stating that she feels safe and ready for discharge. Looking forward to returning home. She presents today as less tangential and talkative than in the past. She does however repeat the same stories as she did last week. She is calm and cooperative, tolerating her medications well. She is able to verbalize understanding of discharge instructions, including her medication management. States she is looking forward to attending IOP. Today we held a family meeting by telephone with her , along with social service technician Karin Grajeda. Patient's states that he is looking forward to having the patient return home, and he believes that she is safe and ready for discharge. Patient's verbalized understanding of discharge instructions , including medication management. States he will help his with medication adherence, and IOP attendance. Depression:0/10; Anxiety:0/10 (with 10 the worst.) Denies suicidal ideation, homicidal ideation, auditory hallucinations, visual hallucinations, paranoid ideation. States that she slept well last night. Her appetite is good. Speech is well articulated, goal-directed, average in rate, volume and tone. The patient understands the risks/benefits/side effects of the medication and is agreeable to continue taking them. Patient reports tolerating her medications well, without complaint. States she feels safe and ready for discharge. Discharge HBIPS - Tobacco Use Treatment Offered Post DC Medications Offered: NA-No Tob Use >30 days Post DC Tobacco Treatment Plan: NA-No Tobacco use >30days - EtOH/Drug Use D/O Treatment Offered Post DC Medications Offered: NA-No EtOH/Drug Use D/O Post DC EtOH/SubAbuse TX Plan: NA-No EtOH/Drug Use D/O Metabolic Screening - Screen if on a Neuroleptic Medication - Metabolic screening should include: - Blood Pressure, BMI, Glucose or Hgb A1c, & a - Lipid profile from within the past 365 days. Metabolic Screening () Not Applicable, patient not on a neuroleptic. OR ([x]) Patient on a neuroleptic(s) . Enter below results for Glucose or Hemoglobin A1C, and lipid panel if obtained during the last 365 days. BMI: 30.400 Blood Pressure: 129/78 Laboratory Results (If applicable): Lab Cholesterol 208 MG/DL H 08/12/16 0435 Cholesterol/HDL Ratio 3 % 08/12/16434 Glucose 105 mg/dL H 08/20/161914 HDL Cholesterol 62 mg/dL H 08/12/16434 LDL Cholesterol, Calc 131 mg/dL H 08/12/16 043 Triglycerides 75 mg/dL 08/12/16434 Discharge Instructions General Discharge Information Discharge Medications: Discharge Medications- (Dose, route, freq, indication): HOME MEDICATION LIST START taking these NEW Home Medications: Carbamazepine Dose: ORAL, TWICE DAILY for Qty: 42 Call-In to (Tegretol XR) 100 MG 100 Milligram MOOD STABILITY Refills: 0 Pharm 1 TAB.ER.12H Take one tab in the morning, and two tabs at night. Last Taken: 09/04/16 Time: 0800 Olanzapine Dose: ORAL, AT BEDTIME for Qty: 14 Call-In to (Olanzapine) 10 MG 20 Milligram CLEAR THOUGHTS Refills: 0 Pharm 1 TABLET Last Taken: 09/03/16 Time: 2200 STOP taking these DISCONTINUED Home Medications: Mirtazapine (Mirtazapine) 30 Dose: ORAL, AT BEDTIME for MG TABLET 30 Milligram depression/insomnia Take 1 tablet by mouth at bedtime. Reason Stopped: Changed to different med Aripiprazole (Abilify) 20 MG Dose: ORAL, Every night for stable TABLET 20 Milligram mood/clear thoughts Take 1 tablet (20mg) by mouth at bedtime. Reason Stopped: Changed to different med Aripiprazole (Abilify) 5 MG Dose: ORAL, Every night for stable TABLET 5 Milligram mood/clear thoughts Take 1 tablet (5mg) by mouth at bedtime. Reason Stopped: Changed to different med Bupropion HCl (Bupropion HCl) Dose: , for UNKNOWN (Unknown Strength) TABLET Unknown Dose Reason Stopped: Changed to different med Alprazolam (Alprazolam) Dose: , for UNKNOWN (Unknown Strength) TABLET Unknown Dose Reason Stopped: Changed to different med Your Preferred Pharmacy [facility] [id number] [address] [place], [place] [id number] Multiple Neuroleptics: (x) Not Applicable OR Document below three failed attempts at monotherapy, or a plan to taper to monotherapy, or augmentation of Clozapine. () Patient's Diet: Regular Patient's Activity: No restrictions DC Disposition: Patient is returning home, where she lives with her . Recommendations: Follow-up at IOP. Take medications as prescribed. Referred To: Post Discharge Referrals Service Date: 09/04/16 Referred To: [[facility]] Notes: [address] [place] [address] Intake appointment today, Sep 04, 2016 at 12:45pm. Copies To: Intensive Outpt Psychiatry
[2016-09-04] MEDS ORDERED: TEGRETOL XR100 MG PO (08:33)
[2016-09-04] MEDS ORDERED: OLANZAPINE10 M1 PO (08:34)
--- NOTE | 2016-09-04 09:09 | SOCIAL WORKER PROG NOTE PSYCH ---
Social Work Progress Note Progress Note Patient to discharge the hospital today. Patient denies SI/HI/AH/VH at present. Patient will return home today with her . Patient and are in the process of moving and patient reports looking forward to the upcoming change. Patients , Teodoro, has agreed to lock and distribute patients medications to her. Patient is in agreement with this plan. We spoke with Teodoro on a phone conference this AM to go over discharge plan. He offers no complaints or concerns at present regarding patient returning home today and discharge plan. Patient has intake at [facility] today at 12:45pm and Teodoro will be picking her up and taking her to intake.
--- NOTE | 2016-09-04 10:27 | CP SOUTH PROGRESS NOTE PSYCH ---
Psych (Inpt) Progress Note Progress Note Progress Note: I discussed this patient's progress to date, current mental status, treatment process in the context of the treatment plan, and discharge planning with staff/ team in the daily morning inpatient team meeting. I also met with the patient myself in individual session. A total of 30 minutes was spent with the patient with more than 50% spent in counseling and/or coordination of care. SUBJECTIVE: "I just have a teeny amount of anxiety about going home." OBJECTIVE: Current Medications Sig/Gideon Start time Last Medication Dose Route Stop Time Status Admin Acetaminophen 500 MG Q6P PRN 08/21 0230 AC 08/21 PO 0233 Al Hydroxide/Mg 30 ML Q4-6 PRN PRN 08/21 1445 AC Hydroxide PO Carbamazepine 100 MG 08/29 0800 AC 09/04 PO 0823 Carbamazepine 200 MG AT BEDTIME 08/28 220 AC 09/03 PO 2212 Magnesium Hydroxide 30 ML Q8P PRN 08/21 1445 AC PO Olanzapine 20 MG AT BEDTIME 09/01 2199 AC 09/03 PO 2212 Vital Signs Date Time Temp Pulse Resp B/P Pulse O2 O2 Flow FiO2 Ox Delivery Rate 09/04 0738 97.6 79 118/69 09/03 1949 97.9 86 113/66 09/03 1601 85 141/76 09/03 1201 79 121/74 ASSESSMENT: Patient presents this morning in good cheer, stating that she feels safe and ready for discharge. Looking forward to returning home. She presents today as less tangential and talkative than in the past. She does however repeat the same stories as she did last week. She is calm and cooperative, tolerating her medications well. She is able to verbalize understanding of discharge instructions, including her medication management. States she is looking forward to attending IOP. Today we held a family meeting by telephone with her , along with social media community manager Karin Grajeda. Patient's states that he is looking forward to having the patient return home, and he believes that she is safe and ready for discharge. Patient's verbalized understanding of discharge instructions , including medication management. States he will help his with medication adherence, and IOP attendance. Depression:0/10; Anxiety:0/10 (with 10 the worst.) Denies suicidal ideation, homicidal ideation, auditory hallucinations, visual hallucinations, paranoid ideation. States that she slept well last night. Her appetite is good. Speech is well articulated, goal-directed, average in rate, volume and tone. The patient understands the risks/benefits/side effects of the medication and is agreeable to continue taking them. PLAN: Discharge today, to IOP intake. Continue with current management as patient is improving. Continue to provide support and encouragement.
--- NOTE | 2016-09-04 10:56 | NUR ---
BEING DISCHARGED TODAY TO HOME. PT IS SELF CARE. F/U AT [facility]PAT[facility]. PT WAS EDUCATED ON SUICIDE PREVENTION, EDUCATED REGARDING DIAGNOSIS. WHEN ASKED, PT DENIES THOUGHTS OF SELF-HARM.
[2016-09-04 12:15] VITALS: BP 129/78
== END 2016-09-04 12:41 | DRG 885 ==
LOC: ERH 18:43 → CP SOUTH 08-21 10:19 → ENPENDDIS 08-21 10:19 → ERHI 08-21 10:19 → CP SOUTH 08-21 16:30
PROVIDERS: Emergency Medicine; ADMIT Psychiatry & Neurology Psychiatry
DX: F31.5 Bipolar disorder, current episode depressed, severe, with psychotic features (principal); E11.9 Type 2 diabetes mellitus without complications
CPT/HCPCS: 36415; 73562-RT; 80307; G0463; G0480; J0401

== ENCOUNTER 2017-02-19 09:21 | Inpatient (IN) | payer OTHER ==
[~2017-02-19] VITALS: Ht 170.2 cm; Wt 81.6 kg
[~2017-02-19 09:21] MED LIST changes: +ALPRAZOLAM0.5 M4; +BUPROPION HCL75 M1; +OLANZAPINE10 M1 PO; +TEGRETOL XR100 MG PO
--- NOTE | 2017-02-19 09:31 | NUR ---
PT TO ED WITH FOR C/C OF ?PSYCHOTIC BREAK. ?HAS A DIAGNOSIS OF BIPOLAR DISEASE BUT UNABLE TO CONFIRM. PT IS PARANOID, SEEING PEOPLE THAT AREN'T THERE AND HEARING VOICES (DENIES COMMAND HALLUCINATIONS). PT SEES DR. SELENE NEVAREZ. DENIES SI/HI.
--- NOTE | 2017-02-19 11:04 | NUR ---
MD GARZA OVER TO [place] PT WANDED AND CHANGED INTO BLUE SCRUBS
--- NOTE | 2017-02-19 11:11 | ED PSYCHIATRIC COMPLAINT ---
See Addendum History of Present Illness General Chief Complaint: Psychiatric Related Complaint Stated Complaint: PER "MY IS HAVING A PSYCHOTIC EPISODE" Source: patient, family, old records Exam Limitations: clinical condition Vital Signs & Intake/Output Vital Signs & Intake/Output Vital Signs Date Time Temp Pulse Resp B/P B/P Pulse O2 O2 Flow FiO2 Mean Ox Delivery Rate 02/20 2001 99.2 83 154/85 02/20 1624 88 142/86 02/20 1211 80 126/79 02/20 0800 96.2 86 134/86 02/19 2300 97.2 84 146/86 ED Intake and Output 02/20 0000 02/19 1200 Intake Total Output Total Balance Patient 180 lb 180 lb Weight Weight Reported by Patient Measurement Method Triage Note: PT TO ED WITH FOR C/C OF ?PSYCHOTIC BREAK. ?HAS A DIAGNOSIS OF BIPOLAR DISEASE BUT UNABLE TO CONFIRM. PT IS PARANOID, SEEING PEOPLE THAT AREN'T THERE AND HEARING VOICES (DENIES COMMAND HALLUCINATIONS). PT SEES DR. SELENE NEVAREZ. DENIES SI/HI. Triage Nurses Notes Reviewed? yes Onset: 3 weeks Duration: week(s):, constant, continues in ED, getting worse Timing: recent history Severity: moderate, severe Associated Symptoms: anxiety, impaired concentration, insomnia LMP (ages 10-50): post menopausal : No Patient currently breastfeeds: No HPI: 5 weeks prior to admission patient was restarted on Wellbutrin. Spouse reports she may have had an allergic reaction to this in the past. 3 weeks prior to admission she complains of difficulty swallowing food and pills with worsening paranoia insomnia anorexia concentration. She denies fever chills nausea vomiting diarrhea abdominal pain chest pain shortness of breath headache dysuria rash bleeding homicidal ideation suicidal ideation. (GREG BRAMBILA,MAR) Allergies Coded Allergies: bupropion (From WELLBUTRIN) (unknown 02/20/17) epinephrine (UNKNOWN 02/19/17) fluoxetine (UNKNOWN 02/19/17) nitrofurantoin (UNKNOWN 02/19/17) Reconcile Medications Alprazolam 1 MG TABLET 1 TAB PO DAILY ANXIETY (Reported) Aripiprazole (Abilify) 15 MG TABLET 1 TAB PO DAILY MENTAL HEALTH (Reported) (ROYAL BRAMBILA,JAIME) Past History Travel History Traveled to [place] past 21 day No Medical History Any Pertinent Medical History? see below for history Neurological: NONE EENT: NONE Cardiovascular: NONE, Reports varicose veins on legs. Respiratory: NONE Gastrointestinal: NONE Hepatic: NONE Renal: NONE Musculoskeletal: falls Psychiatric: bipolar disease Endocrine: Reports borderline DM, diet-controlled. 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 No (MAR GARZA MD) Review of Systems Review of Systems Constitutional: Reports: no symptoms. EENTM: Reports: see HPI. Respiratory: Reports: no symptoms. Cardiovascular: Reports: no symptoms. GI: Reports: no symptoms. Genitourinary: Reports: no symptoms. Musculoskeletal: Reports: no symptoms. Skin: Reports: no symptoms. Neurological/Psychological: Reports: see HPI, anxiety, cognitive dysfunction, confusion. Hematologic/Endocrine: Reports: no symptoms. Immunologic/Allergic: Reports: no symptoms. All Other Systems: Reviewed and Negative (MAR GARZA MD) Physical Exam Physical Exam General Appearance: well developed/nourished, alert, awake, anxious, moderate distress Head: atraumatic, normal appearance Eyes: Bilateral: normal appearance, PERRL, EOMI. Ears, Nose, Throat: normal pharynx, normal ENT inspection, hearing grossly normal, moist mucus membranes Neck: normal inspection, supple, full range of motion, no midline tenderness Respiratory: normal breath sounds Cardiovascular: regular rate/rhythm Gastrointestinal: soft, non-tender Extremities: normal range of motion Neurological/Psychiatric: no motor/sensory deficits, awake, agitated, alert, anxious, personal development mentor II-XII nml as tested, flat, oriented x 3 Appearance/Memory/Insight: impaired insight Behavoir/Eye Contact/Speech: cooperative, decreased rate of speech Thoughts/Hallucinations: delusions, paranoid Skin: intact, normal color, warm/dry SAD PERSONS Done? patient not suicidal (MAR GARZA MD) Progress Differential Diagnosis: drug intoxication, drug overdose, drug withdrawal, hypoglycemia Plan of Care: Orders Procedure Date/time Status Regular Diet 02/20 B Active INIT HSP (30 MIN) 02/20 UNK Complete Change service to 02/20 UNK Active Lab Add-on Test 02/20 UNK Active Patient Data - inpatient psych 02/19 2221 Active Admit to inpatient psych 02/19 2221 Active Vital Signs 02/20 2044 Active Inpt Psych Teach/Educate 02/20 2044 Active Nutritional Intake, Monitor 02/20 2044 Active Inpt Psych Auricular Acupunctu 02/20 2044 Active TSH REFLEX 02/19 1143 Complete Activity/Ambulation 02/19 UNK Active Current Medications Sig/Gideon Start time Last Medication Dose Stop Time Status Admin Aripiprazole 30 MG DAILY 02/21 1000 AC (Abilify) Acetaminophen 650 MG Q6P PRN 02/20 1645 AC (Tylenol) Al Hydroxide/Mg 30 ML Q4-6 PRN PRN 02/20 1645 AC Hydroxide (Maalox Plus) Gabapentin 300 MG Q6P PRN 02/20 1645 AC (Neurontin) Magnesium Hydroxide 30 ML AT BEDTIME PRN 02/20 1645 AC (Milk Of Magnesia) Trazodone HCl 50 MG AT BEDTIME NEED.. 02/20 1645 AC (Desyrel) Alprazolam 1 MG AT BEDTIME 02/19 2230 AC 02/19 (Xanax) 02/26 2229 2256 7:34 PM PATIENT SIGNED OUT TO ME BY DR GARZA. PENDING CRISIS EVALUATION AND DISPO. (JAIME PAIGE MD) Hand-Off Endorsed To: JAIME PAIGE MD Endorsed Time: 1899 Pending: consult (MAR GARZA MD) Departure Departure Disposition: STILL A PATIENT Condition: Stable Clinical Impression Primary Impression: Bipolar disorder with psychotic features Referrals: WILLIAM MORENO MD (PCP/Family) Departure Forms: Customer Survey General Discharge Information (MAR GARZA MD)
--- NOTE | 2017-02-19 11:35 | NUR ---
URINE TRIO COLLECTED AND SENT TO LAB BY THIS [facility]
--- NOTE | 2017-02-19 11:46 | NUR ---
BLOOD DRAWN AND SENT TO LAB BY THIS [facility]
[2017-02-19] MEDS ORDERED: ABILIFY15 M1 PO (11:55)
[2017-02-19] MEDS ORDERED: ALPRAZOLAM1 M2 PO (11:56)
[2017-02-19] MEDS ORDERED: BUPROPION HCL75 M1 PO (11:56)
[2017-02-19 11:57] LABS: ABSOLUTE BASOPHIL COUNT 0 /CUMM (0.0-0.2); ABSOLUTE EOSINOPHIL COUNT 0 /CUMM (0.0-0.7); ABSOLUTE LYMPH COUNT 1.9 /CUMM (1.2-3.4); ABSOLUTE MONOCYTE COUNT 0.3 /CUMM (0.10-0.60); BASOPHIL % 0.2 % (0.0-2.0); EOSINOPHIL % 0.4 % (0-5); HEMATOCRIT 43.5 % (37-47); MEAN CORPUSCULAR HGB 30.6 PG (27.0-31.0); MEAN CORPUSCULAR HGB CONC 33.8 G/DL (33.0-37.0); MEAN CORPUSCULAR VOLUME 90.5 FL (81.0-99.0); MEAN PLATELET VOLUME 9.6 FL (7.4-10.4); PLATELET COUNT 186 /CUMM (130-400); RBC DISTRIBUTION WIDTH 12.9 % (11.5-14.5); WHITE BLOOD CELL COUNT 7.3 /CUMM (4.8-10.8)
--- NOTE | 2017-02-19 12:55 | NUR ---
PT'S STRETCHER MOVED FROM ELIAS D TO ELIAS E POSITION DUE TO DISCHARGES. PT CALM AND COOPERATIVE WITH FLAT AFFECT. PT'S AT BEDSIDE. SITTER AT BEDSIDE.
--- NOTE | 2017-02-19 14:10 | NUR ---
PT CALM AND COOPERATIVE WITH AT BEDSIDE. PT AWAITS CRISIS CONSULT. SITTER AT BEDSIDE. PT MOVED FROM HALLWAY TO ROOM 14
--- NOTE | 2017-02-19 15:03 | ED PSY CRISIS COLLATERAL NOTE ---
Collateral Note Collateral Note Family/Inform/Adria Contacts: Crisis met with patient's , Fish Woodard. states that patient has been more parnoid over the last 2 months. He reports pt had issues with their old neighbors and they moved approximately 4 months ago. reports, pt is paranoid that neighbors will find out where they live and come after her. reports pt is not sleeping well (difficult time falling asleep and when she does fall asleep she gets up in the middle of the night to use the bathroom then can't fall back asleep). also stated that patient is complianing of her throat closing up and making it difficult for her to swallow pills and eat. (It should be noted she ate 2 meals yesterday, cearal this morning, and 1/2 sandwich while in ED). to pt to walk in clinic and could not see down her throat far enough to where she was complaining it hurt. reports he called the PCP and he recommended her to come to the ED. doesn't know if this is a somatic compliant or if it is medical. Additionally, reports he does not think patient is stable and needs inpatient for stabalization. Pt is currently prescribed Abilify 15 mg, Wellbutrin 75 mg and Xanax [address] Jameson Thurman. reports medications are in a locked box and he administered the medications to the pt. reported he would like some support for himself. He was provided with contact info for [facility] caregiver support groups in [place] and [place].
--- NOTE | 2017-02-19 15:33 | NUR ---
PT SITTING ON BED WITH IN ATTENDANCE. PT PRESENTS WITH FLAT AFFECT AND TAKES APPROX 5 SECONDS TO RESPOND TO QUESTIONS. SITTER AT DOOR. CRISIS TO EVALUATE.
--- NOTE | 2017-02-19 17:18 | NUR ---
PT MEETING WITH CRISIS AT THIS TIME. PT'S IN AREA. PT CALM AND COOPERATIVE. SITTER AT DOOR.
--- NOTE | 2017-02-19 18:05 | ED PSYCH CRISIS CONSULTATION ---
Crisis Consult Basic Assessment Date of Consult: 02/19/17 Responsible Person/Accompanied By: Fish Woodard [phone] Insurance Authorization: Insurance #1: Insurance name: [employer] MEDIC[employer] PLAN Phone number: Policy number: [id number] Group number: Authorization number: ED Provider: Patient's ED Provider: MAR GARZA MD Primary Care Physician: Patient's PCP: WILLIAM MORENO MD PCP's Current Psychiatrist: Luly Orlando MD Chief Complaint: Psychiatric Related Complaint Patient's Quote: " I feel depressed" " I am hearing voices" Present Illness: Patient is a 61 year old female brought into the emergency room accompanied by her with complaints of psychotic symptoms. She presents paranoid, depressed, sad, and hearing voices. Patient was cooperative, pleasant, kind with flat affect. Patient was alert and oriented to time, place and person and looked her stated age. Patient reports feeling more depressed and hearing voices over the past month. She reports feeling tired and having difficulty sleeping. The patient complains of having difficulty swallowing at times. She has a history of suicide attempts and was treated at [facility] in August 2016 for attempted suicide by overdose with medications. Her has been providing medication monitoring at home for concerns of overdose. Patient reports current medications Abilify 15 mg and a recent change to Wellbutrin 75 mg 5 weeks ago. She reports having a reaction to Wellbutrin 150 mg in the past and concerned about taking the medication. Patient denies any suicidal, homicidal ideation and denies any visual hallucination. Patient denies any substance abuse history. Patient's Address: [address] [place] [address] Other Phone Number: Who Do You Live With? Spouse Family/Informants Interviewed: Fish Woodard [phone] Allergies - Coded Allergies: epinephrine (UNKNOWN 02/19/17) fluoxetine (UNKNOWN 02/19/17) nitrofurantoin (UNKNOWN 02/19/17) Current Medications - Scheduled Medications Alprazolam 1 MG TABLET 1 TAB PO DAILY ANXIETY #30 (Reported) Entered as Reported by STEVEN LONG on 02/19/17 1156 Aripiprazole (Abilify) 15 MG TABLET 1 TAB PO DAILY MENTAL HEALTH #30 ( Reported) Entered as Reported by STEVEN LONG on 02/19/17 1155 Bupropion HCl 75 MG TABLET 1 TAB PO DAILY MENTAL HEALTH #30 (Reported) Entered as Reported by STEVEN LONG on 02/19/17 1156 Carbamazepine (Tegretol XR) 100 MG TAB.ER.12H 100 MG PO BID MOOD STABILITY #42 TAB Prescribed by REBECCA MCGEE APRN on 09/04/16 Olanzapine 10 MG TABLET 20 MG PO AT BEDTIME CLEAR THOUGHTS #14 TAB Prescribed by REBECCA MCGEE APRN on 09/04/16 Laboratory Results: Laboratory Tests 02/19/17 1143: Anion Gap 11, Estimated GFR > 60, BUN/Creatinine Ratio 13.8, Glucose 124 H, Calcium 10.4 H, Total Bilirubin 0.5, AST 18, ALT 30, Alkaline Phosphatase 62, Total Protein 7.0, Albumin 4.5, Globulin 2.5, Albumin/Globulin Ratio 1.8, CBC w Diff NO MAN DIFF REQ, RBC 4.80, MCV 90.5, MCH 30.6, RDW 12.9, MPV 9.6, Gran % 69.0, Lymphocytes % 26.4, Monocytes % 4.0, Eosinophils % 0.4, Basophils % 0.2, Absolute Granulocytes 5.0, Absolute Lymphocytes 1.9, Absolute Monocytes 0.3, Absolute Eosinophils 0, Absolute Basophils 0, PUBS MCHC 33.8, Serum Alcohol < 10.0 02/19/17 1132: Urine Opiates Screen < 100.00, Methadone Screen < 40, Barbiturate Screen < 60, Ur Phencyclidine Scrn < 6.00, Amphetamines Screen 128, U Benzodiazepines Scrn > 800 H, Urine Cocaine Screen < 50, Urine Cannabis Screen < 5.00 (JACOB LADFrancisco,KAROLYN) Past History Past Medical History Neurological: NONE EENT: NONE Cardiovascular: NONE, Reports varicose veins on legs. Respiratory: NONE Gastrointestinal: NONE Hepatic: NONE Renal: NONE Musculoskeletal: falls Psychiatric: bipolar disease Endocrine: Reports borderline DM, diet-controlled. 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 Past Surgical History Surgical History: 1 Psychosocial History Strengths/Capabilities: Able to ask for help Physical Limitations (Interventions): n/a Psychiatric Treatment History Psych Treatment Psychiatric Treatment Yes Inpatient Treatment Yes Outpatient Treatment Yes Location of Treatment [place] Reason for Treatment Bipolar Dates of Treatment currently treated Response to Treatment poor Diagnosis by History: Bipolar Disorder with psychosis Substance Use/Abuse History Drug Use/Abuse Substances Used/Abused No Substance Abuse Treatment Substance Abuse Treatment Past Substance Abuse [place] No Inpatient Treatment No Outpatient Treatment No (KAROLYN CORONA) Current Mental Status Mental Status Orientation: Person, Place, Situation Affect: Depressed, Flat, Sad Speech: Soft Neuro-vegetative: Appetite Decreased Appearance Appearance- Dress/Hygiene: Dressed in hospital clothing Behaviors Thought Process: WNL Thought Content: Auditory Hallucinations, Paranoid, Somatic Memory: WNL Insight: Fair SI/HI Risk Assessment Past Suicidal Ideation/Attempts Yes Current Suicidal Ideation/Att No Past Homicidal Ideation/Att: No Current Homicidal Ideation/Attempts No Degree of Intent: None Danger To: Self Gravely Disabled: Lack of Insight Risk Factors: history of suicide atmpts, SA/MH hospitalized Lethality Ratin PTSD Checklist PTSD Score: PTSD Score: Response Value Disturbing memories,thoughts,images of stressful experience? Not at all 1 Disturbing dreams of stressful experience from past? Not at all 1 Suddenly acting/feeling as if reliving stressful experience? Not at all 1 Total 3 PTSD Done? pt unable to participate ED Management Sitter: Yes Restraints: No (KAROLYN CORONA) DSM5/PS Stressors/Medical Prob Diagnosis' (DSM 5, Stressors, Medical): Bipolar Disorder, depressed with psychotic features F31.5 Current GAF: 23 Comments: Patient presented to the emregency room depressed, hearing voices, parnoid. Patient reports symptoms getting worse over the past month. The case consulted with Dr. Luly Orlando for the patient to admitted inpatient for psychiatric treatment. (KAROLYN CORONA) Departure Disposition Psych Medical Clearance Date: 02/19/17 Medically Cleared at: 1800 Time Started: 1800 Time Ended: 1900 Psychiatrist Consulted: Luly Orlando MD Date Disposition Established: 02/19/17 Time Disposition Established: 1899 Plan for Disposition - Modality: Inpatient Psychiatry Facility: [facility] Rationale for Disposition: Patient presented to the emregency room depressed, hearing voices, parnoid. Patient reports symptoms getting worse over the past month. The case consulted with Dr. Luly Orlando for the patient to admitted inpatient for psychiatric treatment. Type of IP Admission: Voluntary Referrals WILLIAM MORENO MD (PCP/Family) (KAROLYN CORONA)
--- NOTE | 2017-02-19 18:45 | NUR ---
PT SITTING ON BED IN ROOM 14, CALM AND COOPERATIVE. PT'S AT BEDSIDE. PT AWAITING TRANSFER DOWN TO [facility] THIS EVENING. SITTER AT DOOR.
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
--- NOTE | 2017-02-19 20:00 | NUR ---
PT CALM AND COOPERATIVE WITH AT BEDSIDE. SITTER AT DOOR. PT READY FOR TRANSFER DOWN TO [facility] FOR INPATIENT ADMISSION.
--- NOTE | 2017-02-19 20:26 | NUR ---
ADVISED PT AND REE THAT TRANSPORT WILL ARRIVE SHORTLY
--- NOTE | 2017-02-19 22:07 | NUR ---
PT IS A 61 YEAR VOL PATIENT READMITTED FOR INCREASED DEPRESSION, POOR SLEEP, DECREASED EATING, PARANOIA, AND SUICIDAL IDEATION. SHE HAS A HISTORY OF SUICIDE ATTEMPTS, THE LAST ONE IN AUGUST OF THIS YEAR. SHE HAS BEEN COMPLIANT WITH MEDS AND ATTENDS THE [facility] IN [place]. PT IS SLOW TO RESPOND IN CONVERSATION. THE PATIENT IS A BORDERLINE DIABETIC. SHE WAS COOPERATIVE WITH ADMIT
[2017-02-19 23:00] VITALS: BP 146/86
--- NOTE | 2017-02-20 07:37 | NUR ---
PT INCREASINGLY DEPRESSED AT HOME, WITH POOR SLEEP AND POOR EATING, AND PARANOID THOUGHTS ABOUT HER NEIGHBORS. PT BELIEVES SHE MIGHT HAVE THE START OF A UTI.
[2017-02-20 08:00] VITALS: BP 134/86
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
[2017-02-20 12:11] VITALS: BP 126/79
--- NOTE | 2017-02-20 13:45 | NUR ---
PT HAS BEEN VISIBLE WITHIN THE COMMUNITY, INTERACTING WITH PEERS/STAFF. PT HAS BEEN FREQUENTLY TRYING TO ENGAGE STAFF REQUESTING TO SEE THE DOCTOR. VERY QUIET. ATTENDING ALL GROUPS THIS AM. REPORTS THAT HER GOAL IS TO MEET WITH THE PSYCHIATRIST TO CHANGE HER MEDICATIONS. PT REPORTS THAT ALTHOUGH SHE DID NOT SLEEP WELL SHE IS IN A GOOD MOOD. FLAT AFFECT AND STABLE MOOD. VS ARE STABLE AND DENIES ANY SI/HI TO THIS MHW.
--- NOTE | 2017-02-20 15:56 | CPS MD/APRN INITIAL ASSE PSYCH ---
Psychiatric Admission Oyster Grader's Note Reviewed: Yes Patient Seen and Examined: Yes Identifying Information: 61 yo MWF with bipolar disorder admitted on 02/26/17 on a voluntary basis, referred by [facility] ER. Chief Complaint: Feeling depressed, hearing voices, paranoid of old neighbors. Reaction to Hospitalization: Feels okay about being here. History of Present Illness Onset of Illness: Chronic condition with exacerbation x 1 month. Circumstances Leading to Admission: Poor sleep. Problem(s) Justifying Need for Admission: Paranoia. AHs. Other HPI: Patient reports she is here because of confusion and not sleeping that well x 1 month. Reports she and her moved from [place] to [place] a couple of months ago. Reports new neighbors bother her to some degree, because she can hear what they are saying, just different things that she doesn't like, "things that would be upsetting to my trust in them." Reports sleeping ~4 hours/night x 1 month. Wakes up to go to the bathroom and doesn't always get back to sleep. Appetite: not bad. Energy: kind of low. Case discussed and treatment plan discussed in team meeting. Staff reports that the patient is very paranoid. Perseverative on the topic of medicaitons. Reported that Dr. Gould wanted to start her on Effexor. Past Psychiatric History Past Diagnosis(es)- if any: Bipolar disorder, depressed, with psychotic features. Past Precipitating Factors- if any: Unclear. Has had chronic problems with paranoia about neighbors. - Include inpatient and outpatient treatment Treatment History: Sees Dr. Jameson Gould. Past tx at [facility]. Inpatient ~10x, including [facility] x 2, [facility], [facility]. History of Suicide Attempts or Gestures Hx ~4 suicide attempts. Substance Abuse History: Denies tobacco and alcohol use. No drugs. Allergies: Coded Allergies: bupropion (From WELLBUTRIN) (unknown 02/20/17) epinephrine (UNKNOWN 02/19/17) fluoxetine (UNKNOWN 02/19/17) nitrofurantoin (UNKNOWN 02/19/17) Home Med List: Abilify 15 mg po daily. Xanax 1 mg po qhs. Reportedly was planning to go on Effexor or Cymbalta. - Include any medical condition(s) that may - impact the patient's recovery/remission Past Medical History: Borderline DM, diet-controlled. Varicose veins on legs. ? hemophilia (patient denies hx). Hx ectopic . Past History Medical History Neurological: NONE EENT: NONE Cardiovascular: NONE, Reports varicose veins on legs. Respiratory: NONE Gastrointestinal: NONE Hepatic: NONE Renal: NONE Musculoskeletal: falls Psychiatric: bipolar disease Endocrine: Reports borderline DM, diet-controlled. Blood Disorders: NONE Cancer(s): NONE TONE REGULATOR/Reproductive: NONE History of MRSA: No History of VRE: No History of CDIFF: No Isolation History: Standard Influenza Vaccine: 05/15/16 Surgical History Surgical History: ECTOPIC Psychiatric Family/Social Hx Family History Psychiatric Illness: Mother, depression. Substance Use: Denies. Suicides: Denies. Social History Living Situation: Lives with in a condominium in [place]. Significant Relationships (family/friends): . Has 1 son and 2 grandchildren. 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 Legal: One arrest for incident with neighbor. Harassment charge that became a felony. Spent a brief time in residential. Healthly Behaviors Screening Tobacco Screening Tobacco Use from ED Docu: Never used - If tobacco counseling indicated - the following topics are required. - #1 Recognizing dangerous situations. - #2 Coping Skills. - #3 Basic information about quitting. Status of Tobacco Cessation Counseling: Not Applicable Cessation Med Status Not Applicable Alcohol Screening - ETOH screen POS if BAL >=80 or Audit-C>= M4/F3 Audit-C Score from Diag Assess: 0 Blood Alcohol Level: Laboratory Tests 02/19 1143 Toxicology Serum Alcohol (<10 MG/DL) < 10.0 Alcohol Use Screening Results: Neg per Audit C &/or BAL - If ETOH counseling indicated - the following topics are required. - #1 Express concern about the patient's - drinking at unhealthy levels, include informing - of national norms for moderate drinking: - men <= 14 drinks/week, max 4 drinks/occasion - women <= 7 drinks/week, max 3 drinks/occasion - #2 Providing feedback, including linking alcohol to - negative physical effects (liver injury, hypertension) - negative emotional effects (relationship problems and - depression) - negative occupational consequences (reduced work - performance) - #3 Advising the patient to abstain from alcohol or - to drink below national norms for moderate drinking - (as listed above). Status of ETOH Use Counseling: N/A B/C NO ETOH Use Metabolic Screening - Screen if on a Neuroleptic Medication - Metabolic screening should include: - Blood Pressure, BMI, Glucose or Hgb A1c, & a - Lipid profile from within the past 365 days. Metabolic Screening () Not Applicable, patient not on a neuroleptic. OR () Patient on a neuroleptic(s) . Enter below results for Glucose or Hemoglobin A1C, and lipid panel if obtained during the last 365 days. BMI: 28.200 Blood Pressure: 126/79 Laboratory Results (If applicable): Lab Cholesterol 208 MG/DL H 08/12/16 0435 Cholesterol/HDL Ratio 3 % 08/12/16 0435 Glucose 124 mg/dL H 02/19/17 1143 HDL Cholesterol 62 mg/dL H 08/12/16 0435 LDL Cholesterol, Calc 131 mg/dL H 08/12/16 0435 Triglycerides 75 mg/dL 08/12/16 0435 Exam and Plan Mental Status Examination Ambulation Status: Ambulates without difficulty. Appearance: Casually dressed, well-kempt WF sitting in a chair in [facility]. Attitude towards examiner: Polite and cooperative. Psychomotor activity: No psychomotor agitation/retardation. Behavior: Very slowed speech/thinking. Otherwise unremarkable. Quality of speech: Slowed, +response latency. Normal in volume and tone. Affect: Blunted. Mood: "Pretty good, just sad to be away from family." Sad ~7/10. Anxiety ~6/10. Denies feeling hopeless or helpless. Worthless: "not really." Feels guilty "to a degree. Teodoro thinks I hear voices concerning the old neighbors." Suicidal Ideation: Denies active and passive SI. Homicidal Ideation: Denies HI. Hallucinations: AH: "I guess I could be." Denies VH. Paranoid/Delusional Material: Reports PI of neighbors. "I just feel they might like to get back at me for what I did." Denies magical macias. Difficulties with thought organization: Very slowed thinking. High degree of ambivalent thinking, especially around topic of changing medications. Insight: Limited. Judgment: Limited. Orientation: Ox3 except gave the date as 02/23/17. Cognition: Slowed, otherwise normal. Memory Function: Fair, not formally tested. Estimate of intellectual functioning: Average. Assets/Strengths Patient Identified Assets/Strengths: "Trying to make Teodoro happy. Keep our relationship well." Impression/Plan Impression and Plan: Patient is here with AHs, paranoia and significant response latency. Although she would like an SNRI, she first needs more effective anti-psychotic medication treatment. I recommended changing from Abilify to Trilafon+Cogentin, but she was too ambivalent. We will increase Abilify to 30 mg/day. That patient will be monitored on the unit for mood disturbance and psychosis. Additional information is needed from collaterals: and Dr. Gould. Anticipate once clinically stable, that the patient will be discharged to home and and be referred back to Dr. Gould +/- an IOP. - Include all active medical diagnosis that require tx DSM 5 Diagnosis(es): Bipolar d/o, depressed, with psychotic features. - Initial Tx Plan for Active Psych & Medical Conditions Treatment Plan: As above. Increase Abilify to 30 mg/day. - Factors that would help patient function - in a less restrictive setting. Factors: No longer having AHs or PI. Improvement in response latency.
[2017-02-20 16:24] VITALS: BP 142/86
--- NOTE | 2017-02-20 17:04 | SOCIAL WORKER PROG NOTE PSYCH ---
Social Work Progress Note Progress Note This magazine writer met with pt. Pt appeared depressed and slowed. She stated that her "confused thoughts" led to current inpt admission. Pt stated that her thoughts were "slow" and took time to answer questions. Pt denied SI/HI. She stated that she had been experiencing AH "talking bad about me." She denied any command hallucinations. Pt denied VH. Pt stated that she would like to return to her outpatient psychiatrist after discharge. This magazine writer and pt will meet again tomorrow to further explore discharge plans. Pt agreed to inform staff should concerns arise and/or symptoms return/worsen including SI/HI/AH/VH.
--- NOTE | 2017-02-20 17:55 | NUR ---
PT IS CALM, COOPERATIVE WITH STAFF AND PEERS, AND COMPLIANT WITH UNIT RULES. OFTEN IN MILIEU, STAYING MOSTLY IN PERIPHERY, WITH LIMITED INTERACTION WITH OTHERS. MOOD IS STABLE, AFFECT APPEARS FLAT/CONSTRICTED, COMMUNICATION IS ORGANIZED AND APPEARS NORMAL IN ALL RESPECTS, AND APPETITE IS NORMAL. PT DENIES SI AT THIS TIME.
[2017-02-20 20:01] VITALS: BP 154/85
[2017-02-21 07:48] VITALS: BP 130/70
--- NOTE | 2017-02-21 10:50 | SOCIAL WORKER PROG NOTE PSYCH ---
Social Work Progress Note Progress Note Tw met with patient. Pt presented as depressed and slowed. Responses to questions were delayed and she reported that the continued to experience slowed thoughts. Pt denied current AH, however, reported AH prior to coming into the hospital and while in the ED in which voices were stating, "you need to apologize." Pt was unable to identify what she needed to apologize for. Pt reported concerns about taking medication as "the Trazadone made me crash when I took it before." Pt clarified that she referred to her mood "crashing" while on this medication. Pt was encouraged to speak with the doctor about her concerns when she meets with him today. Pt expressed interest in a family meeting and signed a HAWA for her . She also signed a HAWA for her psychiatrist, Dr. Gould. Pt's was contacted regarding a family meeting which is scheduled for 02/21/17 at 2pm.
--- NOTE | 2017-02-21 11:33 | SOCIAL WORKER PROG NOTE PSYCH ---
See Addendum Social Work Progress Note Progress Note 11:30am This underwriter left with clinical for Angie Montano at [facility] ([phone], ext [phone] ) requesting authorization for continued inpt admission. A call back number was provided.
--- NOTE | 2017-02-21 13:35 | NUR ---
PT IS STABLE WITH FLAT AFFECT. PT HAS BEEN VISIBLE WITHIN THE COMMUNITY AND INTERACTING MINIMALLY WITH PEERS/STAFF. PT OFTEN HAS DELAYED RESPONSE TIME TO QUESTIONS FROM STAFF/PEERS AND RESPONDS VAGUELY. PT INTERMITTENTLY SMILES AND LAUGHS WITH PEERS/STAFF YET NOT TOO OFTEN. PT SEEMS CONFUSED AT MOMENTS. VS ARE STABLE AND DENIES ANY SI/HI TO THIS MHW.
--- NOTE | 2017-02-21 13:54 | History & Physical ---
General Information and HPI History of Present Illness: middle age female admitted for increased depression she has previous history of depression and multiple admissions in psychiatry in the past and she claims that the she was feeling more depressed although she was taking her medications. She cannot remember the name of her medications and claims she sees the psychiatrist regularly. Past history is essentially negative except for one ectopic for which she was operated without any consultations. She is not employed at this time and denies smoking or drinking any alcohol. She has 4 siblings who are in good health and she denies any family history of any particular illness. She claims her mother is alive in her upper 80s and has some dementia but her father is . She has one child who is about 33 years old and is in good health. Allergies/Medications Allergies: Coded Allergies: bupropion (From WELLBUTRIN) (unknown 02/20/17) epinephrine (UNKNOWN 02/19/17) fluoxetine (UNKNOWN 02/19/17) nitrofurantoin (UNKNOWN 02/19/17) Home Med list Alprazolam 1 MG TABLET 1 TAB PO DAILY ANXIETY (Reported) Aripiprazole (Abilify) 15 MG TABLET 1 TAB PO DAILY MENTAL HEALTH (Reported) Past History Travel History Traveled to [place] past 21 day No Medical History Neurological: NONE EENT: NONE Cardiovascular: NONE, Reports varicose veins on legs. Respiratory: NONE Gastrointestinal: NONE Hepatic: NONE Renal: NONE Musculoskeletal: falls Psychiatric: bipolar disease Endocrine: Reports borderline DM, diet-controlled. 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 Home ETOH Use: denies use Illicit Drug Use: denies illicit drug use Functional Ability ADLs Independent: dressing, eating, toileting, bathing. Ambulation: independent Review of Systems Review of Systems Constitutional: Denies: no symptoms, see HPI, chills, fever, weakness. EENTM: Reports: nasal congestion. Cardiovascular: Denies: no symptoms. Respiratory: Denies: no symptoms. GI: Denies: no symptoms. Genitourinary: Reports: dysuria, frequency. Denies: hematuria. Musculoskeletal: Denies: no symptoms. Skin: Denies: no symptoms. Neurological/Psychological: Reports: see HPI, anxiety, depressed, emotional problems. Hematologic/Endocrine: Denies: no symptoms. Immunologic/Allergic: Denies: no symptoms. All Other Systems: Reviewed and Negative Exam & Diagnostic Data Last 24 Hrs of Vital Signs/I&O Vital Signs Date Time Temp Pulse Resp B/P B/P Pulse O2 O2 Flow FiO2 Mean Ox Delivery Rate 02/21 0748 98.6 84 130/70 02/20 2001 99.2 83 154/85 02/20 1624 88 142/86 Physical Exam General Appearance Alert, Oriented X3, Cooperative, No Acute Distress Skin No Rashes, No Breakdown, No Significant Lesion HEENT Atraumatic, PERRLA, EOMI, Mucous Membr. moist/pink Neck Supple, No JVD, No thryomegaly, +2 Carotid Pulse wo Bruit Lymphatic Cervical nl Cardiovascular Regular Rate, Normal S1, Normal S2, No Murmurs, Gallops, Rubs Lungs Clear to Auscultation, Normal Air Movement Abdomen Soft, No Tenderness, No Hepatospenomegaly, No Masses Neurological Exam Findings: Normal Gait, Normal Speech, Strength at 5/5 X4 Ext, Normal Tone, Cranial Nerves 3-12 NL, Reflexes 2+ Cranial Nerves II through XII: Within normal limits and intact Extremities No Clubbing, No Cyanosis, No Edema, No Tenderness/Swelling Assessment/Plan Assessment: This middle-aged female is admitted for increased depression. She claims she was taking her medications outside but does not remember the names. She has some symptoms of urinary tract infection and her urine will be tested for UA and culture sensitivity if this is accurate and if she has any recurrent urinary tract infection then we will treat her with antibiotics. For now she was advised to increase fluid intake until the urine culture results are back. She does not require any other workup or treatment from medical standpoint. As Ranked By This Provider Problem List: 1. Depression 2. Bipolar disorder Miscellaneous Miscellaneous Documentation Attending Case Discussed With: SHARMAINE HATCH MD Primary Care Physician: WILLIAM MORENO MD Patient sees these Specialists none Level of Patient Care: SUKHI Pacheco Attending MD Review Statement Attending Statement Attending MD Statement: examined this patient, reviewed EMR data (avail), discussed with nursing Attending Assessment/Plan: This middle-aged female is admitted for increased depression. She has some symptoms of UTI but no other significant medical problems. We'll wait for her urine culture results before giving her any antibiotics and in the meantime she will be encouraged to drink extra fluids. Does not require any other workup or treatment from medical standpoint and her admission blood work including a CBC electrolytes liver functions are all within normal limits.
--- NOTE | 2017-02-21 14:15 | CP SOUTH PROGRESS NOTE PSYCH ---
Psych (Inpt) Progress Note Progress Note Include the following elements, when applicable: Involvement in the active treatment of the patient with behavioral observations of the patient and the patient's response to the treatment. Review of the ongoing treatment process in the context of the treatment plan. Indication of how multi-disciplinary staff members are carrying out the treatment plan. Plans for future interventions and recommendations for revision of the treatment plan. Liaison with other physicians/providers. Progress Note: Case and treatment plan discussed in team meeting. Staff reports that the patient may have a UTI and we are checking a urine. Remains perseverative. Requires short, concise redirection from staff.. I tried to reach Dr. Gould, but he is away until 02/26/17. Couple's meeting with is scheduled for 2 p.m. Patient seen at 1:21 PM. She is neatly dressed. Patient states she thinks she is a little bit slowed down from the Abilify or the Xanax, however this is not evident to me. She had cognitive slowing yesterday. Response latency remains pronounced. She is not interested in my reducing the hs Xanax dose. She complains of blurred vision and I suggested that she give herself some time to acclimate to the increase in Abilify dose to 30 mg daily. She later stated that she has been on Abilify 30 mg before and did not do so well on it. She is unable to commit to switching neuroleptic medication, for example to Trilafon and Cogentin. Remains perseverative on getting on Effexor, and I reminded her that we would like her auditory hallucinations and paranoid to clear before starting an antidepressant. I asked if he she is feeling less paranoid and she responded "not really." Reports she hears voices sometimes when she goes to bed. Affect is calm and blunted to flat. Mood is "not so good, I didn't do too good in group. I can't think very clearly." Rates sad mood maybe 7/10 and anxiety probably 7/10 also. Denies feeling hopeless, helpless or worthless. Feels guilty sometimes. Denies active and passive suicidal ideation. Denies homicidal ideation. Denies having visual hallucinations but reports her thinks that she sees things. Sleep: Reports she slept for 5 hours and then got up to go the bathroom. Reports appetite is pretty good. Reports energy today is not that good. IMPRESSION: Slow progress. Continue present treatment plan. Await outcome of couple's meeting. Hopefully patient will consider changing neuroleptic, as I am not convinced that Abilify will control her psychotic symptoms fully, even at a dose of 30 mg daily, although we recently increased the dose. Patient requires a lot of redirection and a lot of reassurance.
--- NOTE | 2017-02-21 15:29 | SOCIAL WORKER PROG NOTE PSYCH ---
Social Work Progress Note Progress Note 1:55pm This display card writer met with pt and her , Teodoro, for a family meeting. Pt's discussed symptoms that he noticed leading to this hospitalization. Particularly, "paranoid thoughts" in which pt reported that she was being followed or talked about (beginning in November or December) and difficulty swallowing ( beginning about one month ago or more). Teodoro and pt also reported observing decreased concentration. Pt was in agreement with these sx, however, while Teodoro reported that pt had been experiencing AH/VH through patient's report, pt denied any VH. Teodoro reported that the pt is typically "fun to be around, up beat, not one to sit still. She used to enjoy jewelery making and knitting, but not in a long time." He reported that she has also recently had a "lack of sleep." Discharge options (regarding outpatient tx) were explored. Neither pt, nor her , were supportive of IOP and stated that they preferred for the pt to have individual therapy and medication management. She stated that she attended IOP for 3 days following the last admission, but did not continue due to being uncomfortable in the group. Pt acknowledged that she has found the group sessions helpful when she is inpt, but still not interested in attending any outpt groups. Pt stated that she was also interested in returning to her outpatient psychiatrist. Pt and her had questions related to medications and met with a nurse following this meeting.
[2017-02-21 16:02] VITALS: BP 133/78
--- NOTE | 2017-02-21 18:33 | NUR ---
PT IS CALM, COOPERATIVE WITH STAFF AND PEERS, AND COMPLIANT WITH UNIT RULES. BOTH IN AND OUT OF MILIEU, LIMITED INTERACTION WITH OTHERS, MOSTLY STAYING IN PERIPHERY. MOOD IS STABLE, AFFECT APPEARS FLAT/CONSTRICTED, COMMUNICATION IS ORGANIZED AND APPEARS NORMAL IN ALL RESPECTS, AND APPETITE IS NORMAL. PT DENIES SI AT THIS TIME.
[2017-02-21 19:42] VITALS: BP 139/58
[2017-02-22 08:00] VITALS: BP 130/85
[2017-02-22 12:31] VITALS: BP 136/84
--- NOTE | 2017-02-22 14:10 | NUR ---
PT IS STABLE WITH FLAT AFFECT. VISIBLE WITHIN THE COMMUNITY AND MINIAMLLY INTERACTING WITH PEERS/STAFF. PT APPEARS TO HAVE CONFUSED/DAZE MENTALITY AND RESPONDS SLOWLY/VAGUELY WHEN ENGAGED. PT HAS BEEN ATTENDING GROUPS ALL DAY. VS ARE STABLE AND DENIES ANY SI/HI TO THIS MHW.
--- NOTE | 2017-02-22 15:52 | CP SOUTH PROGRESS NOTE PSYCH ---
Psych (Inpt) Progress Note Progress Note Include the following elements, when applicable: Involvement in the active treatment of the patient with behavioral observations of the patient and the patient's response to the treatment. Review of the ongoing treatment process in the context of the treatment plan. Indication of how multi-disciplinary staff members are carrying out the treatment plan. Plans for future interventions and recommendations for revision of the treatment plan. Liaison with other physicians/providers. Progress Note: Case and treatment plan discussed in team meeting. Staff reports that yesterday , the patient adjusted to the unit. Went to groups. Compliant. Still slow to respond verbally. Son is a pharmacist and wanted to provide input. Patient is described as 100% against IOP. Urinalysis negative and urine culture shows no growth thus far. Patient and are against trazodone (it reportedly made patient crash in mood in the past). I have discontinued trazodone. Patient seen at 11:33 a.m. Feels okay but reports a frontal headache /10. Response times are slightly improved. 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 Mood: pretty good. Affect brighter. Sad maybe 6/10. Anxiety probably 6/10. Denies feeling hopeless or helpless. States she doesn't really feel worthless or guilty. Denies active and passive SI and HI. AH: maybe a little at night when she went to bed. Can't remember content. Denies VH. PI: sometimes the AHs talk to her about the neighbors. Sleep: probably 4-5 hours. Appetite: good. Energy: a little low. Doesn't want to attend [facility] because she states she doesn't do well in a group setting. Patient gave me verbal permission to call her son, Luis, and I discussed case with him. He informed me that patient has never done well with Abilify dose lower than 20 mg/day. IMPRESSION: Slow progress. Continue present treatment plan. Patient was offered prn Tylenol for h/a but refused. Continues to require inpatient LOC. Monitor response to increase in Abilify to 30 mg daily.
[2017-02-22 16:06] VITALS: BP 141/70
--- NOTE | 2017-02-22 16:09 | IP INCIDENTAL NOTE PSYCH ---
Incidental Note Notation: Per Shana Bradford, CONSTRUCTION COST ESTIMATOR: during family/couples meeting yesterday, pt reported the following: - Venlafaxine ER, 150mg was prescribed in 2009 and found to be effective - Carbamazepine 100mg and Olanzepine 10mg - discharged with these meds in Aug 2016 from and caused "foggy, dizzy, rapid heart beat", also, refusing Trazadone due to past hx of depression when taking it
--- NOTE | 2017-02-22 17:48 | SOCIAL WORKER PROG NOTE PSYCH ---
Social Work Progress Note Progress Note 2:20pm This policy writer met with pt. She reported feeling more anxious at night and stated that this was due to worrying that she will be unable to sleep. She stated that she is sleeping 4-5 hours of quality sleep. Pt reported overall improved mood and sleep/movements do not appear to be as slow. Pt stated, "I'm disappointed that I can't be on a depressant." She further explained that she feels that she would be able to better cope with her sx, particularly AH, if she had more energy and her mood was improved. Pt stated that she experiences AH in which they state, "Barrera! Barrera!" which she stated is regarding "that I am in here [the hospital]." Pt was encouraged to utilize groups to identify coping skills to utilize in managing her symptoms. She expressed concern that she might be laughed at by other patients. Pt was encouraged to speak with group clinicians prior to group. she appeared to be in agreement with this and was shown where their office is. Pt denied SI/HI.
--- NOTE | 2017-02-22 17:56 | NUR ---
PT IS CALM, COOPERATIVE WITH STAFF AND PEERS, AND COMPLIANT WITH UNIT RULES. BOTH IN AND OUT OF MILIEU, LIMITED INTERACTION WITH PEERS, SLIGHTLY WITHDRAWN AND ISOLATIVE. MOOD IS STABLE, AFFECT APPEARS FLAT/CONSTRICTED, COMMUNICATION IS ORGANIZED AND APPEARS NORMAL IN ALL RESPECTS, AND APPETITE IS NORMAL. PT DENIES SI AT THIS TIME.
[2017-02-22 20:33] VITALS: BP 150/90
--- NOTE | 2017-02-23 07:31 | NUR ---
PT QUIET, ON THE PERIPHERY. PT STATES SHE IS DOING BETTER. PT DOES NOT HAVE A UTI. PT WITH CONTINUED FIXED PARANOID DELUSION ABOUT HER NEIGHBORS. PT SLEPT.
[2017-02-23 07:44] VITALS: BP 134/72
[2017-02-23 12:17] VITALS: BP 130/77
--- NOTE | 2017-02-23 13:09 | NUR ---
PT IS OUT IN THE COMMUNITY INTERACTING AT TIMES WITH STAFF AND PEERS. PT IS COMPLIANT AND COOPERATIVE. PT IS GOAL THIS MORNING IN PLANNING WAS TO BE "MORE SOCIAL." PT MOOD IS STABLE WITH A FLAT AFFECT. PT IS ATTENDING GROUPS. PT DENIES SI [place].
--- NOTE | 2017-02-23 13:36 | CP SOUTH PROGRESS NOTE PSYCH ---
Psych (Inpt) Progress Note Progress Note Include the following elements, when applicable: Involvement in the active treatment of the patient with behavioral observations of the patient and the patient's response to the treatment. Review of the ongoing treatment process in the context of the treatment plan. Indication of how multi-disciplinary staff members are carrying out the treatment plan. Plans for future interventions and recommendations for revision of the treatment plan. Liaison with other physicians/providers. Progress Note: Case and treatment plan discussed in team meeting. Staff reports that the patient appears calmer. She is no longer following staff around asking repetitive questoins about medications. Appearing depressed, guarded, paranoid and flat. Slept but said she did not sleep. Patient seen at 12:19 PM. Reports she is feeling pretty good. Reports she had some trouble with sleeping because a neighbor in another room snored loudly. Reports her son, a pharmacist, suggested Risperdal. Patient reports feeling better but a little cloudy in her frontal area, like maybe something is too strong. She reports some subjective right blepharospasm and left shoulder twitching although I did not observe these. Speech is more spontaneous. Affect is blunted but brighter than upon admission. Mood is pretty good. Rates sad mood maybe a 5/10 and anxiety probably 6/10. Denies feeling hopeless, helpless or worthless. Feels guilty sometimes. Feels that someone wants an apology from her, stating maybe it is voice-related. Denies suicidal and homicidal ideation. Regarding voices, states they are not too bad, maybe at a 4/10. She feels she does not have voices, but she reports that her says that she does. Denies visual hallucinations. I asked about her old neighbors and she reports her old neighbors had set off firecrackers and had a noisy libertarian, and she feels that they want an apology. She reports she was arrested for yelling at the neighbors and allegedly "threatened" them, but the patient does not remember that. Appetite is pretty good. Energy is not too bad. Major risks and benefits of Risperdal, including risks of metabolic syndrome with weight gain, diabetes, hypertension and hyperlipidemia, and risk of irreversible tardive dyskinesia, were discussed with the patient, and she agrees to this medication. Patient was advised to avoid drugs and alcohol while on this medication. IMPRESSION: Slow progress. Continue present treatment plan. At this point, we will discontinue Abilify and start Risperdal 1 mg p.o. b.i.d. Patient continues to require inpatient level of care.
--- NOTE | 2017-02-23 14:22 | SOCIAL WORKER PROG NOTE PSYCH ---
Social Work Progress Note Progress Note 2:15pm This sports book writer provided clinical for Angie Montano at [facility] ([phone], ext [phone]) requesting authorization for continued inpt admission. Pt is covered through the weekend with a review on 02/26/17.
[2017-02-23 15:47] VITALS: BP 112/70
--- NOTE | 2017-02-23 17:20 | SOCIAL WORKER PROG NOTE PSYCH ---
Social Work Progress Note Progress Note This principal technical writer met with pt. She reported, "I feel very uncomfortable up here, like something pulling"; patient pointed to her forhead. She also reported blurry vision, which is new. This was relayed to the nursing staff. Pt reported ongoing AH, primarily at night, stating "they are saying not so nice things to me like, 'haha, you're in there and we're not." Pt denied experiencing any other types of hallucinations. She denied SI/HI. Pt appeared brighter today than yesterday and looks forward to visitation from her family.
[2017-02-23 19:59] VITALS: BP 142/75
--- NOTE | 2017-02-23 20:03 | NUR ---
PT HAS APPEARED WITHDRAWN, CONSTRICTED AND FLAT. PT COMMUNICATES MINIMALLY WITH STAFF AND PEERS AND HAS SPENT MOST OF THE SHIFT ISOLATED OR WITH HER VISITORS. SHE HAS BEEN COOPERATIVE AND COMPLIANT WITH STAFF AND UNIT RULES. PT HAS DENIED ANY THOUGHTS OF SI WHEN ASKED BY STAFF.
[2017-02-24 04:40] VITALS: BP 128/71
--- NOTE | 2017-02-24 05:05 | NUR ---
At 0440, patient came to the nursing station desk, reporting that "I don't feel well"; she reported that her toungue felt swollen, and that she felt unsteady on her feet; vital signs were wnl. on initial examination, her toungue appeared pink, and of normal size; her speech was clear and regular; she was alert and oriented; her tounge was again examined after 5 and 10 minutes had elapsed and appeared not to have changed; Dr. Corbin called and updated; order given to monitor patient, and that benadryl could be ordered if pt still not feeling well; Tameka was not happy with this assessment, and requested that she be examined by another practitioner.
[2017-02-24 08:10] VITALS: BP 126/75
--- NOTE | 2017-02-24 11:26 | CP SOUTH PROGRESS NOTE PSYCH ---
Psych (Inpt) Progress Note Progress Note Include the following elements, when applicable: Involvement in the active treatment of the patient with behavioral observations of the patient and the patient's response to the treatment. Review of the ongoing treatment process in the context of the treatment plan. Indication of how multi-disciplinary staff members are carrying out the treatment plan. Plans for future interventions and recommendations for revision of the treatment plan. Liaison with other physicians/providers. Progress Note: Pt notes that she is "very depressed" and "does not feel right in my head." She reports feeling "slow and tired." Prolonged psychoeducation done on ECT and indications. Pt given handout on ECT as well. Denies SI or HI. Denies AVHs. Current Medications Sig/Gideon Start time Last Medication Dose Route Stop Time Status Admin Acetaminophen 650 MG Q6P PRN 02/20 1645 AC PO Al Hydroxide/Mg 30 ML Q4-6 PRN PRN 02/20 1645 AC Hydroxide PO Alprazolam 1 MG AT BEDTIME 02/19 2230 AC 02/23 PO 02/26 2229 2115 Aripiprazole 30 MG DAILY 02/21 1000 DC 02/23 PO 0841 Diphenhydramine HCl 25 MG ONCE ONE 02/24 0615 DC 02/24 PO 02/24 0616 0617 Gabapentin 300 MG Q6P PRN 02/20 1645 AC 02/23 PO 2114 Magnesium Hydroxide 30 ML AT BEDTIME PRN 02/20 1645 AC PO Risperidone 1 MG BID 02/23 1225 AC 02/24 PO 0852 Laboratory Tests 02/21 1225 Urines Urine Color (YEL,AMB,STR) YEL Urine Clarity (CLEAR) CLEAR Urine pH (5.0 - 8.0) 6.5 Ur Specific Pisek (1.001 - 1.035) <= 1.005 Urine Protein (NEG,<30 MG/DL) NEG Urine Ketones (NEG) NEG Urine Nitrite (NEG) NEG Urine Bilirubin (NEG) NEG Urine Urobilinogen (0.1 - 1.0 EU/dl) 0.2 Ur Leukocyte Esterase (NEG) NEG Ur Microscopic SEDIMENT EXAMINED Urine WBC (0 - 2 /HPF) RARE Urine Hemoglobin (NEG) TRACE-LYSED Urine Glucose (N MG/DL) NEG Vital Signs Date Time Temp Pulse Resp B/P B/P Pulse O2 O2 Flow FiO2 Mean Ox Delivery Rate 07/15 0810 97.6 78 126/75 02/24 0440 96.7 90 18 128/71 02/23 1959 98.7 100 142/75 02/23 1547 99 112/70 02/23 1217 79 130/77 MSE Appears as stated age. Cooperative behavior, good, appropriate eye contact. Nl speech rate and prosody. +++ psychomotor retardation. Mood depressed Affect extremely flat, depressed, constricted, appropriate, non-liable. Linear and goal directed thought process though extremely slow, almost thought blocking. Denies SI or HI. Does not appear to be responding to internal stimuli. Denies AVHs, paranoia, or delusions. I/J: limited A/P: Pt with bipolar disorder with severe depression. Given severity of impairment, discussed ECT with patient as may be helpful. - Pt to review ECT patient handout given today - Continue current medication regimen
[2017-02-24 12:45] VITALS: BP 129/78
--- NOTE | 2017-02-24 14:04 | NUR ---
Tameka palomino more visible and interactive with peers and staff as the day went out. Was asking questions regarding ECT which was recommended to ehr by the MD installation superintendent. Denies SH/SI/HI. Flat affect. compliant with unit norms and expectations. No visitors as of this writing.
[2017-02-24 16:01] VITALS: BP 142/79
--- NOTE | 2017-02-24 18:12 | NUR ---
PT IS CALM, COOPERATIVE WITH STAFF AND PEERS, AND COMPLIANT WITH UNIT RULES. BOTH IN AND OUT OF MILIEU, BUT STAYING IN PERIPHERY MOSTLY, LIMITED INTERACTION WITH OTHERS. MOOD IS STABLE, AFFECT APPEARS FLAT/CONSTRICTED, COMMUNICATION IS ORGANIZED AND APPEARS NORMAL IN ALL RESPECTS, AND APPETITE IS NORMAL. PT DENIES SI AT THIS TIME.
--- NOTE | 2017-02-24 18:31 | NUR ---
Patient is A&O X 3, compliant with medication and group therapies. Patient is very withdrawn/ isolative, slow to respond with hedr communication process. Mood and affects are depressed/ Euthymic. Patient report poor night sleep, but good appetite, vital sign is stable and within the acceptable range, denies thought of self-harm and to someone else.
--- NOTE | 2017-02-24 19:38 | Event Note ---
Event Note Event Note: Event from this morning at 6 AM: (Late entry): I was asked to evaluate patient Tameka Woodard in [facility] for concerns of tongue swelling/ anaphylaxis after receiving Risperidal. Patient has severe paranoia and when I evaluated her, she c/o her memory issues. Her vitals are stable. Her tongue is not swollen and no issues with ROM. She is slow with her speech but able to speak clear. No respiratory distress. I have reassured her. I have ordered a dose of Benadryl 25 mg PO for now.
[2017-02-24 19:53] VITALS: BP 154/86
--- NOTE | 2017-02-25 07:03 | NUR ---
PATIENT SLEPT ALL NIGHT.
[2017-02-25 07:36] VITALS: BP 120/74
[2017-02-25 12:08] VITALS: BP 124/71
--- NOTE | 2017-02-25 12:27 | CP SOUTH PROGRESS NOTE PSYCH ---
Psych (Inpt) Progress Note Progress Note Include the following elements, when applicable: Involvement in the active treatment of the patient with behavioral observations of the patient and the patient's response to the treatment. Review of the ongoing treatment process in the context of the treatment plan. Indication of how multi-disciplinary staff members are carrying out the treatment plan. Plans for future interventions and recommendations for revision of the treatment plan. Liaison with other physicians/providers. Progress Note: Pt notes that she is "pretty good" today. Notes that visit which was helpful. She feels that he is very supportive. Denies SI or HI. Current Medications Sig/Gideon Start time Last Medication Dose Route Stop Time Status Admin Acetaminophen 650 MG Q6P PRN 02/20 1645 AC PO Al Hydroxide/Mg 30 ML Q4-6 PRN PRN 02/20 1645 AC Hydroxide PO Alprazolam 1 MG AT BEDTIME 02/19 2230 AC 02/24 PO 02/26 2229 2148 Docusate Sodium 100 MG BID 02/25 1203 AC PO Gabapentin 300 MG Q6P PRN 02/20 1645 AC 02/23 PO 2114 Magnesium Hydroxide 30 ML AT BEDTIME PRN 02/20 1645 AC PO Risperidone 1 MG BID 02/23 1225 AC 02/25 PO 0731 Senna 187 MG AT BEDTIME 02/25 2200 AC PO Vital Signs Date Time Temp Pulse Resp B/P B/P Pulse O2 O2 Flow FiO2 Mean Ox Delivery Rate 02/25 1208 86 124/71 02/25 0736 97.9 94 120/74 02/24 1953 97.3 104 154/86 02/24 1601 94 142/79 02/24 1245 93 129/78 MSE Appears as stated age. Cooperative behavior, good, appropriate eye contact. Nl speech rate and prosody. +++ psychomotor retardation. Mood better Affect extremely flat though slightly brighter today depressed, constricted, appropriate, non-liable. Linear and goal directed thought process though extremely slow, almost thought blocking. Denies SI or HI. Does not appear to be responding to internal stimuli. +RIS denied AVHs. I/J: limited A/P: Pt with bipolar disorder with severe depression. Given severity of impairment, discussed ECT with patient as may be helpful. - Pt to review ECT patient handout - Senna and colace added for constipation - Continue current medication regimen
--- NOTE | 2017-02-25 14:23 | NUR ---
Patient is A&O X 3, compliant with group therapies/activities but often has some questional/skeptical attitude with some of her medications. patient mood and affect are apathetic/flat and behavior is withrawn/ isolative with minimal verbal interaction with other peers and staff members.Patient is slow to respond and sometime has thought-blocking with her communication process. Patient c/o of constipation to the on-Call psychiatrist and orders of stool softner added to her medication profile.Vital sign is stable, denies any physical pain thought of self-harm and to someone else.
[2017-02-25 16:16] VITALS: BP 131/80
--- NOTE | 2017-02-25 18:23 | NUR ---
PT IS CALM, COOPERATIVE WITH STAFF AND PEERS, AND COMPLIANT WITH UNIT RULES. OFTEN IN MILIEU, THOUGH STAYING TO SELF, MOSTLY IN THE PERIPHERY. LIMITED INTERACTION WITH OTHERS. MOOD IS STABLE, AFFECT APPEARS FLAT/CONSTRICTED, COMMUNICATION IS SPARSE, BUT ORGANIZED AND APPEARS NORMAL IN MOST RESPECTS, AND APETITE IS NORMAL. PT DENIES SI AT THIS TIME.
[2017-02-25 20:07] VITALS: BP 141/80
[2017-02-26 08:39] VITALS: BP 152/68
[2017-02-26 12:07] VITALS: BP 124/73
--- NOTE | 2017-02-26 12:48 | NUR ---
PT IS A/OX3; PT IS SEEN OUT IN COMMUNITY WITH LIMITED INTERACTION WITH PEERS AND STAFF; AFFECT APPEARS TO BE FLAT/CONSTRICTED; PT IS MEDICATION COMPLIANT; PT DENIES SI/HI/RAY AT THIS TIME; PT IS CALM AND COOPERATIVE.
--- NOTE | 2017-02-26 13:38 | SOCIAL WORKER PROG NOTE PSYCH ---
Social Work Progress Note Progress Note This casualty underwriter met with patient. Patient was engaged in the conversation, however, continues to present with slowed response to questions. She reported improvement in her mood and observed that she is smiling more. She also reported some anxiety. She identified her as primary support and stated that he visited her this weekend. Pt reported some difficulty in the mornings regarding motivation to get out of bed. She stated that she had questions about medications (such as inquiry about increasing her antidepressants) and will speak with Dr. White about this when they meet.
--- NOTE | 2017-02-26 15:29 | CP SOUTH PROGRESS NOTE PSYCH ---
Psych (Inpt) Progress Note Progress Note Include the following elements, when applicable: Involvement in the active treatment of the patient with behavioral observations of the patient and the patient's response to the treatment. Review of the ongoing treatment process in the context of the treatment plan. Indication of how multi-disciplinary staff members are carrying out the treatment plan. Plans for future interventions and recommendations for revision of the treatment plan. Liaison with other physicians/providers. Progress Note: PSYCHIATRIST NOTE, 02/26/2017: I assumed responsibility for treatment of patient this morning, discussed her presentation and progress to date, current mental status, treatment and discharge planning with staff team today in the daily morning ITTM; Shana Bradford LCSW, and I met together with patient in individual session. The last time I treated this patient was 4 years ago in 01/2013; at that time she had been discharged on Depakote ER, 750mg/day, Abilify, 20mg/day and Wellbutrin IR, 75mg/day. She returned twice earlier this year, overdosing within days of initial discharge and current presentation may be a continuation of or at least a relapse of that decompensation. At the time of current admission Dr. Gipson switched Abilify to the more potent Risperdal, and patient has tolerated a dose of Risperdal, 2mg/day well to date; he had not started an anti-depressant pending some degree of amelioration of the psychotic features to disorder. She continues to be quite perseverative, ruminative and anxious. Patient has been asking to be restarted on an anti-depressant and reported having done well in the past on Effexor and low dose Wellbutrin; after review of R/B/SE patient agreed to retrial on Effexor XR; I will start her on 37.5mg tomorrow morning, but will titrate slowly due to the past sensitivity of pyschotic symptoms to the introduction of primary anti-depressant therapy and will also increase Risperdal dose by 50% from 2mg to 3mg/day, effective tonight. Patient has continued to experience sleep difficulty, mainly MNA, and anxiety in the evening/night; she had previously been on 30-45mg/day of Remeron as an anti- depressant and agreed to my restarting a low dose (7.5mg) at HS to help with sleep/anxiety. Patient is not currently on a primary mood stabilizer (had been on Depakote previously) at this time, but we may consider introducing one, particularly if she experiences further exacerbation of psychotic sx with upward titration in Effexor XR. Patient failed to follow through with the referral to [facility] at time of most recent [facility] discharge in 08/2016; we should encourage her to do so now and will look for support from her during the couple's meeting scheduled for tomorrow, 02/27/2017, 11am.
--- NOTE | 2017-02-26 15:43 | SOCIAL WORKER PROG NOTE PSYCH ---
See Addendum Social Work Progress Note Progress Note 3:42pm This grant writer left with clinical for Angie Montano at [facility] ([phone] ext [phone] ) requesting authorization for continued inpt stay.
--- NOTE | 2017-02-26 15:48 | SOCIAL WORKER PROG NOTE PSYCH ---
Social Work Progress Note Progress Note Dr. White and this teletypewriter installer met with patient. She presented as depressed. She also appeared to be ruminative, perseverative and reported difficulty sleeping. Medications were discussed including changes that will be made to address slowed thinking, sleep and mood. Inquiry regarding past diagnoses were made, specifically Bipolar d/o. Pt was unsure about past dx and stated that her would be able to comment on that. She requested that her is called to clarify. Additionally, a second family session will be scheduled. This teletypewriter installer spoke with pt's . A family session has been scheduled for at 11am. This teletypewriter installer also briefly discussed any past dx of bipolar d/o. He confirmed that this dx has been given in the past and will be discussed further during tomorrow's family meeting.
[2017-02-26 16:25] VITALS: BP 130/78
--- NOTE | 2017-02-26 17:49 | NUR ---
PT IS CALM, COOPERATIVE WITH STAFF AND PEERS, AND COMPLIANT WITH UNIT RULES. BOTH IN AND OUT OF MILIEU, PT MOSTLY STAYS TO SELF, SPENDING MOST OF THE TIME IN PERIPHERY. MOOD IS STABLE, AFFECT APPEARS FLAT/CONSTRICTED, COMMUNICATION IS ORGANIZED AND APPEARS NORMAL IN ALL RESPECTS, AND APPETITE IS NORMAL. PT DENIES SI AT TIME.
[2017-02-26 19:50] VITALS: BP 149/78
[2017-02-27 07:49] VITALS: BP 141/94
--- NOTE | 2017-02-27 11:13 | NUR ---
PATIENT IS CALM AND COOPERATIVE WITH STAFF AND UNIT RULES. MOOD IS STABLE WITH FLAT AFFECT. MINIMAL INTERACTION WITH PEERS AND STAFF. SPEECH IS ORGANIZED, COMMUNICATION MINMAL. ATTENDS GROUPS. DENIES SI.
--- NOTE | 2017-02-27 11:44 | CP SOUTH PROGRESS NOTE PSYCH ---
Psych (Inpt) Progress Note Progress Note Include the following elements, when applicable: Involvement in the active treatment of the patient with behavioral observations of the patient and the patient's response to the treatment. Review of the ongoing treatment process in the context of the treatment plan. Indication of how multi-disciplinary staff members are carrying out the treatment plan. Plans for future interventions and recommendations for revision of the treatment plan. Liaison with other physicians/providers. Progress Note: PSYCHIATRIST NOTE (COUPLE'S MEETING), 02/27/2017: I discussed this patient's interval progress to date, current mental status , treatment and discharge planning with staff team today in the daily morning ITTStacy and Shana Bradford LCSW, and I met with patient and her in a couple 's session. Patient's resistance to aftercare in IOP was discussed particularly given the fact that she has now returned to hospital within 6 months of refusing aftercare in the IOP, whereas, previously depressive episodes had been several years apart. It was somewhat paradoxical that spouse tended to support patient' s current reluctance to IOP after having expressed his concerns about preventing relapses and deterioration in his 's condition over time. I decided we would defer further discussion of IOP for the present as patient's ruminations/ obessive worries appear to be coalescing around the issue of f/u in IOP; I reassured the couple that the choice of aftercare was theirs, but that I am obligated to give them the benefit of my best advice concerning it. Dr. Delatorre had discussed ECT with patient over this past weekend; though we have not picked up on this thus far, ECT would certainly be an option if current treatment plan/medications fail to restore sufficient functionality. Patient's spouse alluded to his pharmacist son, Luis, and the latter's questions and concerns several times during our meeting today; Ms. Bradford will reach out to the latter to see if he would like to participate in a future family meeting or at minimum speak with us in a telephonic/conference call communication. Patient denied any problems/side effects on the higher dose of Risperdal and initial dose of Effexor XR this morning and agreed to my doubling current dose to 75mg/day, starting in AM tomorrow, 02/28/2017. I will maintain the lower dose of Xanax of 0.5mg HS for the present given patient's still significant anxiety; if the latter persists I may recommend a low dose of regular Ativan or Klonopin rather than continuing the Xanax.
[2017-02-27 11:57] VITALS: BP 144/83
--- NOTE | 2017-02-27 12:59 | SOCIAL WORKER PROG NOTE PSYCH ---
Social Work Progress Note Progress Note 12:55pm This check writer salesperson left with clinical for Angie Montano at [facility] ([phone], ext [phone] ) requesting authorization for continued inpt stay. A call back number was provided for this check writer salesperson.
[2017-02-27 15:56] VITALS: BP 146/86
--- NOTE | 2017-02-27 17:56 | SOCIAL WORKER PROG NOTE PSYCH ---
Social Work Progress Note Progress Note This va underwriter received a vm from [employer] ([phone], ext [phone]) at [facility] regarding the insurance authorization. VM stated that the case would be sent for a peer review. Dr. White and Godwin Dodd were both informed. This va underwriter returned the call and provided a call back number for [employer].
[2017-02-27 19:56] VITALS: BP 155/87
--- NOTE | 2017-02-27 21:39 | NUR ---
PT IS VISIBLE ON UNIT, VISITING WITH IN THE KITCHEN. ONCE HER VISITOR LEFT, PT RETREATED TO BED FARILY EARLY. MINIMAL INTERACTION WITH PEERS. COOPERATIVE AND COMPLIANT WITH STAFF. NO COMPLAINTS OR SI REPORTED. PT HAS A STABLE MOOD AND FLAT AFFECT.
--- NOTE | 2017-02-28 11:43 | SOCIAL WORKER PROG NOTE PSYCH ---
Social Work Progress Note Progress Note This advertising writer received vm from Monica at [facility] who stated that the peer review was complete and an additional 2 days were authorized with a review due on 03/01/17.
--- NOTE | 2017-02-28 11:44 | SOCIAL WORKER PROG NOTE PSYCH ---
Social Work Progress Note Progress Note This note in reference to family meeting that occurred on 02/27/17 at 11:05am Dr. White and this technical document writer met with patient and her . IOP was discussed as the recommendation for ongoing treatment following discharge from the hospital. Patient and her were both reluctant to IOP as they reported that she had attended three IOP sessions following a previous inpatient stay and was uncomfortable/anxious during these session. Medication questions and concerns were reviewed. An additional family meeting may be scheduled and patient's son will be contacted to inquire about his availability to attend the session.
--- NOTE | 2017-02-28 13:17 | NUR ---
PATIENT CALM AND COOPERATIVE WITH STAFF AND UNIT RULES. NORMAL MOOD WITH FLAT AFFECT. PATIENT WAS NOT FEELING WELL TODAY, SO SHE STAYED IN HER ROM ALL DAY, ISOLATIVE WITHOUT GOING TO GROUP OR EATING. HER TEMPERATURE WAS 99.2 AT 0800, AND AT 0930 IT WAS 98.3, AND AT NOON IT WAS 98.4. NO REPORTS OF SI.
[2017-02-28 13:36] VITALS: BP 114/64
--- NOTE | 2017-02-28 15:36 | SOCIAL WORKER PROG NOTE PSYCH ---
Social Work Progress Note Progress Note This contract technical writer made two attempts to meet with patient earlier in the day, however, patient was sleeping. This contract technical writer and Nani Napoles LCSW made third attempt to meet with patient. Patient was awake, but still in bed and stated that she was not feeling well. She requested not to meet today. This contract technical writer followed up with nursing staff who confirmed that she had not been feeling well. Another attempt to meet with patient will be made tomorrow.
--- NOTE | 2017-02-28 17:43 | CP SOUTH PROGRESS NOTE PSYCH ---
See Addendum Psych (Inpt) Progress Note Progress Note Include the following elements, when applicable: Involvement in the active treatment of the patient with behavioral observations of the patient and the patient's response to the treatment. Review of the ongoing treatment process in the context of the treatment plan. Indication of how multi-disciplinary staff members are carrying out the treatment plan. Plans for future interventions and recommendations for revision of the treatment plan. Liaison with other physicians/providers. Progress Note: PSYCHIATRIST NOTE, 02/28/2017: I discussed this patient's slow progress to date, current mental status, treatment and discharge planning with staff team today in the daily morning ITTM and met with her again myself in individual session. I was disappointed to see patient actually looking more sullen, withdrawn, regressed today with at least mild delay in response/mild psychomotor retardation (though not mohit thought blocking); patient is clearly deteriorated from her level of functioning just yesterday in the Couple's Meeting and, perhaps hopefully, patient commented spontaneously today, "I don't think I am 'there' [any better] yet," whereas yesterday she was looking for a discharge date while being very resistive to attending IOP; today her attitude towards the latter seems to be not as negative or at least not as strong, yet some of that may be contributed to by her general lack of energy, motivation, mental acuity. Patient denied a problems/side effects on higher dose of Effexor XR, and given he presentation today I want to increase dose tomorrow, 03/01/2017, by 75mg instead of 37.5mg/day, to 150mg daily and give dose at dinnertime rather than in the morning in case the Effexor is contributing to patient's daytime sleepiness/somnolence (despite telling us she is sleeping well at night and the same being reported by night nursing staff). I am also going to increase, at least temporarily, current dose of Risperdal by 33%, from 3mg to 4mg/day, giving entire dose at HS and continue to taper away HS Xanax, giving last dose of 0.25mg tonight. I hope the clinical picture is brighter tomorrow; if not we may rejoin the discussion of possible referral for ECT with patient and her .
--- NOTE | 2017-02-28 18:37 | NUR ---
PT IS LETHARGIC, SLEEPING IN PT ROOM FOR EXTENDED PERIODS OF TIME. ISOLATIVE/WITHDRAWN. WHEN ENTERING MILIEU PT SPENDS MOST OF THE TIME IN PERIPHERY. MOOD IS STABLE, AFFECT APPEARS FLAT/CONSTRICTED, COMMUNICATION IS SPARSE, BUT ORGANIZED AND APPEARS NORMAL IN ALL RESPECTS, AND APPETITE IS NORMAL. PT DENIES SI AT THIS TIME.
[2017-02-28 19:47] VITALS: BP 148/84
--- NOTE | 2017-03-01 07:09 | NUR ---
PT QUIET, ON THE PERIPHERY. PT'S VISITED. PT VIGILANT. PT SLEPT.
[2017-03-01 07:34] VITALS: BP 129/76
--- NOTE | 2017-03-01 09:47 | NUR ---
PT IS A/OX3, MOOD IS STABLE WITH FLAT AFFECT, SEEN OUT IN COMMUNITY BUT IS ISOLATIVE AND WITHDRAWAN FROM PEERS AND STAFF, COMPLIANT WITH MEDICAITON AND RULES, CALM AND COOPERATIVE, DENIES SI/HI/RAY AT THIS TIME, STATES "FEELING BETTER THAN YESTERDAY." COMMUNICATION IS ORGANIZED AND CLEAR.
--- NOTE | 2017-03-01 10:34 | SOCIAL WORKER PROG NOTE PSYCH ---
See Addendum Social Work Progress Note Progress Note 8:45am This typewriter assembly and parts inspector met with patient. She continues to present as depressed and with delayed response. Patient continues to express interest in attending individual therapy following discharge from [facility]. This typewriter assembly and parts inspector and patient explored pros and cons to attending IOP. She agreed to consider this discussion and follow up with this typewriter assembly and parts inspector regarding further thoughts about IOP level of care.
[2017-03-01 12:43] VITALS: BP 133/84
--- NOTE | 2017-03-01 13:16 | SOCIAL WORKER PROG NOTE PSYCH ---
Social Work Progress Note Progress Note This keno writer / runner met with patient regarding IOP. She stated that she would be willing to attend and that her decision was based on, "I want to get better." Patient was uncertain about her availability for the IOP and wanted to speak with her . Patient's was called with the patient present. He stated that he would be able to provide transportation for her for the group that meets from 10a-1pm. Patient and her were in agreement with the co- pay of $40 per group and stated that they had paid this previously when she attended IOP. Patient's and pt were both agreeable to a family meeting, which has been scheduled for 03/02/17 at 11am.
--- NOTE | 2017-03-01 16:21 | SOCIAL WORKER PROG NOTE PSYCH ---
Social Work Progress Note Progress Note 4:14pm This engineering technical writer left vm for Yris ([phone], ext [phone]) regarding inpatient authorization earlier today. Yris returned the call and spoke with this engineering technical writer, stating that the patient does not currently meet criteria for continued stay on the inpatient unit. As discussed with Dr. White, patient may discharge tomorrow, 03/02/17. Patient is covered for inpatient stay through [employer] and Yris will be contacted tomorrow with discharge information or clinical should additional inpatient stay be requested. Due to potential discharge tomorrow, a peer review will not be scheduled at this time and is deferred due to potential discharge tomorrow. If continued stay is requested, a peer review may be scheduled at that time.
[2017-03-01 16:32] VITALS: BP 155/90
--- NOTE | 2017-03-01 19:08 | CP SOUTH PROGRESS NOTE PSYCH ---
Psych (Inpt) Progress Note Progress Note Include the following elements, when applicable: Involvement in the active treatment of the patient with behavioral observations of the patient and the patient's response to the treatment. Review of the ongoing treatment process in the context of the treatment plan. Indication of how multi-disciplinary staff members are carrying out the treatment plan. Plans for future interventions and recommendations for revision of the treatment plan. Liaison with other physicians/providers. Progress Note: PSYCHIATRIST NOTE, 03/01/2017: I discussed this patient's slow progress to date, current mental status, treatment and discharge planning with staff team today in the daily morning ITTM and our P.A. student Eladio, and I met with patient together in individual session. She continues to have less affect and appear more sullen than she had 2-3 days ago, perhaps slightly better than yesterday but affect constricted/sad and anxious appearing. She appears to be tolerating the increases in Risperdal (to 4mg) and Effexor XR (to 150mg) well, is now receiving the latter at suppertime rather than in AM. Patient is not clamoring to go home the way she had been earlier on, is less negative about follow up in IOP. We have a couple's meeting scheduled for tomorrow and will see if patient improves significantly in the meantime and how she behaves in that session to help determine her readiness to go home; I continue to recall that earlier this year when patient was sent home prematurely as it turned out she overdosed and had to be readmitted within a couple of days; we don't want anything like that to happen again after discharge from current admission.
[2017-03-01 20:09] VITALS: BP 140/80
--- NOTE | 2017-03-01 22:18 | NUR ---
PT HAS APPEARED TO BE IN BRIGHTER SPIRITS TODAY THAN PAST OBSERVATIONS. SHE CAN SOMETIMES APPEAR CONFUSED AND SLOW TO RESPOND BUT REMAINS COMPLIANT WITH UNIT RULES. PT HAS BEEN STABLE, AND DENIES ANY THOUGHTS OF SI WHEN ASKED BY STAFF.
--- NOTE | 2017-03-02 07:32 | NUR ---
PT'S VISITED. PT STUCK IN PERSEVERATION OVER 2 PAGES OF DC PAPERWORK GIVEN TO HER ON EVENINGS. SHE WAS VERY DIFFICULT TO REDIRECT SHE WAS OVERWHELMED WITH THE TASK OF FILLING OUT PAGES. PT SLEPT. PT SCHEDULED TO DC TODAY.
--- NOTE | 2017-03-02 12:07 | SOCIAL WORKER PROG NOTE PSYCH ---
Social Work Progress Note Progress Note 12:05pm This contract technical writer left vm for Yris ([phone], ext [phone]) requesting additional inpatient stay and to meet via phone for a review at 1pm today. A call back number for this provided was included in the message.
--- NOTE | 2017-03-02 12:12 | SOCIAL WORKER PROG NOTE PSYCH ---
Social Work Progress Note Progress Note 11:10am Dr. White and this junior technical writer met with patient and her for a family meeting. Patient's son attended the meeting by phone as well. Patient presented as more depressed, withdrawn and slowed in comparison to overall recent presentation. It was determined that discharge would not occur today. Medication questions/concerns were discussed to include adjustments to patient's medications. Pt reported anxiety as well as difficulty sleeping last night. She denied AH. Patient presented with decrease in spontaneity in today's meeting. Patient is recommended to continue with inpatient treatment at this time due to symptoms, to continue with monitoring regarding medication changes as well as continued assessment for safety particularly due to hx of suicide attempts. Patient's will visit this weekend and her son will try to as well. Patient continues to appear motivated to continue with IOP following discharge from [facility]. Discharge date will be re-visited for 03/05/17 on this date. This junior technical writer spoke with Yris ([phone], ext [phone]) regarding continued inpt authorization. Clinical was provided and Yris stated that she will staff this with her doctor as she is "on the fence about medical necessity." She will contact this junior technical writer within 30 minutes with their decision to authorize additional inpt stay or schedule a doc-to-doc review. This junior technical writer received vm at 12:52pm from Yris ([phone], ext [phone]) regarding continued inpt stay insurance authorization. Patient has been authorized for additional inpt stay (03/02, 03/03, 03/04) with a review on 03/05/17.
--- NOTE | 2017-03-02 12:35 | CP SOUTH PROGRESS NOTE PSYCH ---
Psych (Inpt) Progress Note Progress Note Include the following elements, when applicable: Involvement in the active treatment of the patient with behavioral observations of the patient and the patient's response to the treatment. Review of the ongoing treatment process in the context of the treatment plan. Indication of how multi-disciplinary staff members are carrying out the treatment plan. Plans for future interventions and recommendations for revision of the treatment plan. Liaison with other physicians/providers. Progress Note: PSYCHIATRIST NOTE (FAMILY MEETING), 03/02/2017: I discussed this patient's slow progress to date, current mental status, treatment and discharge planning with staff team today in the daily morning ITTM ; Shana Bradford LCSW, and I also met with patient and her (and pharmacist son Luis over the conference room telephone intercom) in a family session. Spouse was able to verbalize his concern for patient's welfare and safety and express his serious misgivings at any prospect she might be discharged from [facility] over the coming weekend ("she still not there") and was even more supportive to our recommendation for aftercare in the IOP than he had been during our earlier couple's meeting at which time he tended to collude with patient's reluctance with regard to the necessity for IOP; he accepted that her "failure" in IOP at the time of [address]nd [facility] discharge earlier this year may have been contributed to by "just not being ready for discharge, well enough to benefit from the IOP," which I thought to be rather reflective and insightful on his part. Patient demonstrated psychomotor retardation to a greater extent than in our previous meeting with her but was eventually able to express her own misgivings with regard to going home and feeling that "the medication is not 'right' yet"). Patient's son Luis was supportive of the treatment plan and promised us he would visit his mother on [facility] this coming weekend (had not visited her to this point in her hospitalization) and give us feedback as to how well he thinks she is doing then. Patient's brought up his complaint that "the doctor who was on last weekend had no business speaking with my about ECT;" he felt this was upsetting to her and he was not able (present) to support her at that time; I assured him that the doctor had not been authorized by the treatment team to engage in such a discussion with patient at that time and that this had not been part of the treatment plan; however, I also spoke to the general efficacy of ECT, particularly in individuals suffering repeated relapses on or less than acceptable response to medication and other forms of therapy, and that I would likely bring up the subject of ECT with the couple early next week if there is no noted further improvement over this weekend. Patient has been tolerating the upward titration in dose of Effexor XR well and accepted further increases over coming weekend from 150mg to 225mg/day. She is tolerating full 4mg/day dose of Risperdal well to date. If patient does not improve over the weekend we also may consider addition of a mood stabilizer.
[2017-03-02 12:50] VITALS: BP 125/76
--- NOTE | 2017-03-02 14:09 | NUR ---
PT HAS BEEN A LITTLE WITHDRAWN FROM STAFF AND PEERS UNTIL THIS AFTERNOON WHEN SHE HAD HER FAMILY MEETING. SINCE THEN PT HAS BEEN OUT IN COMMUNITY AND ATTENDING GROUPS. PT MOOD IS STABLE WITH A FLAT AFFECT. PT DENIES SI THOUGHTS.
[2017-03-02 15:59] VITALS: BP 131/92
--- NOTE | 2017-03-02 18:55 | NUR ---
PT IS CALM, COOPERATIVE WITH STAFF AND PEERS, AND COMPLIANT WITH UNIT RULES. BOTH IN AND OUT OF MILIEU, INTERCATING TO A LIMITED EXTENT WITH OTHERS. STAYING MOSTLY IN PERIPHERY. MOOD IS STABLE, AFFECT APPEARS FLAT/CONSTRICTED, COMMUNICATION IS ORGANIZED AND APPEARS NORMAL IN ALL RESPECTS, AND APPETITE IS NORMAL. PT DENIES SI AT THIS TIME.
[2017-03-02 19:54] VITALS: BP 138/71
--- NOTE | 2017-03-03 07:38 | NUR ---
PATIENT SLEPT ALL NIGHT.
[2017-03-03 08:16] VITALS: BP 146/76
[2017-03-03 12:34] VITALS: BP 136/79
--- NOTE | 2017-03-03 13:01 | CP SOUTH PROGRESS NOTE PSYCH ---
Psych (Inpt) Progress Note Progress Note Include the following elements, when applicable: Involvement in the active treatment of the patient with behavioral observations of the patient and the patient's response to the treatment. Review of the ongoing treatment process in the context of the treatment plan. Indication of how multi-disciplinary staff members are carrying out the treatment plan. Plans for future interventions and recommendations for revision of the treatment plan. Liaison with other physicians/providers. Progress Note: Patient seen chart reviewed, d/w nursing staff No overnight events medication compliant she c/o blurry vission. rates her depression as 6/10 and reports ongoing CAH and confusion with her thoughts. evidence of thought blocking and responding to internal stimuli. denies si/hi CF, ASA Guarded, +pmr. soft slow speech flat stare w/o blinking. depressed mood flat affect. denies si/hi +AH disorganized thought process with thought blocking. i/j both limited a/p bp d/o with psychosis vs schizoaffective offered to adj effexor for daytime but she declines continue current tx plan
--- NOTE | 2017-03-03 13:51 | NUR ---
PT HAS BEEN COMPLIANT AND COOPEARTIVE WITH UNIT RULES. PT HAS BEEN ISOLATIVE IN ROOM FOR MOST OF THE DAY, ATTENDING SOME GROUPS. PT MOOD IS STABLE WTIH A COSNTRICTED/FLAT AFFECT. PT DENIES SI THOUGHTS.
[2017-03-03 15:52] VITALS: BP 119/68
[2017-03-03 20:11] VITALS: BP 136/68
--- NOTE | 2017-03-03 21:16 | NUR ---
PT HAS BEEN QUIET WITH A CONSTRICTED AFFECT. PT'S CAME TO VISIT AND SHE HAD A DIFFICULT TIME COMING OUT OF HER ROOM. PTS SPENT A WHILE IN FRONT OF HER DOOR ENCOURAGING HER TO COME OUT UNTIL STAFF ALSO GOT INVOLVED TO ENCOURAGE HER TO ENJOY HER VISIT. PT DID COME OUT AND SAT IN THE KITCHEN FOR MOST OF VISITING HOURS. PT APPEARED TO BE IN A BETTER MOOD. PT HAS DENIED ANY THOUGHTS OF SI WHEN ASKED BY STAFF.
--- NOTE | 2017-03-04 07:14 | NUR ---
PATIENT SLEPT ALL NIGHT.
[2017-03-04 07:51] VITALS: BP 135/71
[2017-03-04 12:03] VITALS: BP 123/77
--- NOTE | 2017-03-04 13:12 | NUR ---
PT IS COMPLIANT AND COOPERATIVE [facility] UNIT RULES. PT IS OUT IN THE COMMUNITY INTERACTING AT TIMES [facility] STAFF AND PEERS. PT IS A LITTLE WITHDRAWN, FROM OTHERS, SPEAKING QUIETLY AND MINIMALY. PT MOOD IS STABLE WITH A CONSTRICTED AFFECT. PT DENIES SI THOUGHTS.
--- NOTE | 2017-03-04 13:39 | CP SOUTH PROGRESS NOTE PSYCH ---
Psych (Inpt) Progress Note Progress Note Include the following elements, when applicable: Involvement in the active treatment of the patient with behavioral observations of the patient and the patient's response to the treatment. Review of the ongoing treatment process in the context of the treatment plan. Indication of how multi-disciplinary staff members are carrying out the treatment plan. Plans for future interventions and recommendations for revision of the treatment plan. Liaison with other physicians/providers. Progress Note: Patient seen chart reviewed d/w home staff. no overnight events. she c/o anxiety and some difficulty with sleep but nursing reports sleeping thru the night. She also reports vague blurry vission but denies any other se of medications. She denies si/hi or psychosis. Did report having a odd sense that she felt the fire alarm would go off yesterday but had explanation "i just got a feelign" denies same sensation on evaluation CF, casually dressed and groomed guarded but pleasant. flat stare. increased prosody of speech, poverty of thought with blocking. anxious mood flat affect. denies vt hallucinations or paranoia i/j limited ap BP no change continue current tx plan
[2017-03-04 16:03] VITALS: BP 140/83
[2017-03-04 20:15] VITALS: BP 134/84
--- NOTE | 2017-03-04 21:50 | NUR ---
VERY QUIET THIS EVENING DID NOT ATTEND WRAP UP. WANTING TO SHOWER BUT THEN CHANGED HER MIND. TRYING TO MAKE HER SMILE AND ACCOMPLISHED SHE WOULD TELL STORY ABOUT HER AND HER GIRLFIRENDS IN THE PAST AND IT MAKES HER SMILE AND LAUGH.
[2017-03-05 08:10] VITALS: BP 133/78
[2017-03-05] MEDS ORDERED: RISPERDAL4 M1 PO (10:45)
[2017-03-05] MEDS ORDERED: XANAX0.25 M1 PO (10:45)
[2017-03-05] MEDS ORDERED: EFFEXOR XR75 M1 PO (10:45)
[2017-03-05] MEDS ORDERED: REMERON15 M2 PO (10:45)
--- NOTE | 2017-03-05 13:23 | SOCIAL WORKER PROG NOTE PSYCH ---
Social Work Progress Note Progress Note 10:30am This specification writer met briefly with patient regarding family meeting today. She was in agreement with attending a family meeting with her , Dr. White and this specification writer to discuss discharge and discharge plans. 12:00pm Eladio Higginbotham (PA student) and this specification writer met with patient and her . Discharge was discussed to include follow up with IOP through . Patient and her accepted an intake assessment time of 12:45pm today. Patient discussed progress she has observed within herself during this hospitalization, particularly reporting a "better mood." Please see additional notes by Dr. White regarding this meeting. This specification writer spoke with Magaly at [facility] by phone as Surekha Mckenzie is out of the office today (case was discussed with Juan Mckenzie last week). As Magaly will be conducting the patient's intake assessment, this specification writer informed her that she would be unable to attend any other IOP schedule other than the 10- track () - Magaly reported that there is current availability within this track. She was also informed that the patient is prescribed Xanax. Discharge paperwork faxed to IOP: W10 and patient health summary: 03/05/17, 12:33pm IOP Transfer Note: 03/05/17, 1:16pm
--- NOTE | 2017-03-05 15:23 | SOCIAL WORKER PROG NOTE PSYCH ---
See Addendum Social Work Progress Note Progress Note 3:22pm This magnetic tape typewriter operator left for Yris ([phone], ext [phone]) with discharge clinical and to request an IOP authorization. Call back number was provided.
--- NOTE | 2017-03-05 15:56 | CP SOUTH PROGRESS NOTE PSYCH ---
Psych (Inpt) Progress Note Progress Note Include the following elements, when applicable: Involvement in the active treatment of the patient with behavioral observations of the patient and the patient's response to the treatment. Review of the ongoing treatment process in the context of the treatment plan. Indication of how multi-disciplinary staff members are carrying out the treatment plan. Plans for future interventions and recommendations for revision of the treatment plan. Liaison with other physicians/providers. Progress Note: PSYCHIATRIST NOTE (COUPLE'S MEETING/DISCHARGE), 03/05/2017:
--- NOTE | 2017-03-05 15:56 | DISCHARGE SUMMARY REPORT-PSYCH ---
Visit Information Visit Dates/Diagnosis' Admission Date: 02/19/17 Discharge Date: 03/05/17 Reason for Admission: " Psy Discharge Primary Diag: Bipolar I Disorder, Depressed with psychotic features Hospital Course Course Allergies: Coded Allergies: bupropion (From WELLBUTRIN) (unknown 02/20/17) epinephrine (UNKNOWN 02/19/17) fluoxetine (UNKNOWN 02/19/17) nitrofurantoin (UNKNOWN 02/19/17) Discharge HBIPS - Tobacco Use Treatment Offered - EtOH/Drug Use D/O Treatment Offered Metabolic Screening - Screen if on a Neuroleptic Medication - Metabolic screening should include: - Blood Pressure, BMI, Glucose or Hgb A1c, & a - Lipid profile from within the past 365 days.
== END 2017-03-05 12:35 | DRG 885 ==
LOC: ERH 09:21 → ERHI 18:57 → CP SOUTH 18:57 → ENTRNSPT 20:19 → ENRESERV 20:30 → CP SOUTH 20:42 → CMPTRNSPT 20:52 → CP SOUTH 02-20 14:24
PROVIDERS: Emergency Medicine; ADMIT Psychiatry & Neurology Addiction Medicine
DX: F31.5 Bipolar disorder, current episode depressed, severe, with psychotic features (principal)
CPT/HCPCS: 36415; 80307; 81001; 87086; G0463; G0480

== ENCOUNTER 2017-03-09 17:48 | Emergency (ER) | payer OTHER ==
[~2017-03-09] VITALS: Ht 170.2 cm; Wt 86.2 kg
[~2017-03-09 17:48] MED LIST changes: +ALPRAZOLAM1 M2 PO; +EFFEXOR XR75 M1 PO; +REMERON15 M2 PO; +RISPERDAL4 M1 PO; +XANAX0.25 M1 PO
[2017-03-09 19:06] LABS: ABSOLUTE BASOPHIL COUNT 0 /CUMM (0.0-0.2); ABSOLUTE EOSINOPHIL COUNT 0.1 /CUMM (0.0-0.7); ABSOLUTE GRANULOCYTE CT 4.7 /CUMM (1.4-6.5); ABSOLUTE LYMPH COUNT 2.2 /CUMM (1.2-3.4); ABSOLUTE MONOCYTE COUNT 0.6 /CUMM (0.10-0.60); BASOPHIL % 0.2 % (0.0-2.0); EOSINOPHIL % 1.6 % (0-5); GRANULOCYTE % 61.9 % (42.2-75.2); HEMATOCRIT 42.5 % (37-47); MEAN CORPUSCULAR HGB 30.1 PG (27.0-31.0); MEAN CORPUSCULAR HGB CONC 32.8 G/DL (33.0-37.0); MEAN PLATELET VOLUME 9.4 FL (7.4-10.4); PLATELET COUNT 200 /CUMM (130-400); RBC DISTRIBUTION WIDTH 13.5 % (11.5-14.5); RED BLOOD CELL CT 4.63 /CUMM (4.20-5.40); WHITE BLOOD CELL COUNT 7.7 /CUMM (4.8-10.8)
--- NOTE | 2017-03-09 20:13 | RADIOLOGY REPORT ---
EXAMINATION: XR CHEST CLINICAL INFORMATION: Shortness of breath. COMPARISON: Chest x-ray 08/16/2016 TECHNIQUE: 2 views of the chest were obtained. FINDINGS: Lungs are clear. No pulmonary vascular congestion. No infiltrate or pleural effusion. The heart size is normal. The cardiac and mediastinal contours are normal. There are multilevel degenerative changes of dorsal spine. IMPRESSION: Unremarkable examination.
--- NOTE | 2017-03-09 20:55 | ED GENERAL ADULT ---
History of Present Illness General Chief Complaint: Psychiatric Related Complaint Stated Complaint: ONGOING ANXIETY AND DEPRESSION Source: patient, family, old records Exam Limitations: no limitations Vital Signs & Intake/Output Vital Signs & Intake/Output Vital Signs Date Time Temp Pulse Resp B/P B/P Pulse O2 O2 Flow FiO2 Mean Ox Delivery Rate 03/09 1959 Room Air 03/09 1756 98.0 100 16 132/80 96 Room Air Allergies Coded Allergies: bupropion (From WELLBUTRIN) (unknown 02/20/17) epinephrine (UNKNOWN 02/19/17) fluoxetine (UNKNOWN 02/19/17) nitrofurantoin (UNKNOWN 02/19/17) Reconcile Medications Alprazolam (Xanax) 0.25 MG TABLET 0.5 MG PO 2200 anxiety at bedtime Mirtazapine (Remeron) 15 MG TABLET 7.5 MG PO 2200 sleep induction/anxiety Risperidone (Risperdal) 4 MG TABLET 4 MG PO 2200 clarify thinking/augmentation Venlafaxine HCl (Effexor XR) 75 MG CAP.ER.24H 225 MG PO 1700 anti-depressant Triage Note: PT TO TRIAGE WITH HER , WHEN ASKED QUESTIONS PT KEEPS REPEATING " I CAN'T TALK". NOT ANSWERING QUESTIONS. PER HER PT WAS DISCHARGED FROM [facility] SUNDAY AFTER 12 DAY ADMISSION, STATES THAT PT WAS NOT READY TO BE DISCHARGED. PT NOT SLEEPING VERY PARANOID. DENIES SI/HI BUT SPOUSE STATES THAT SHE IS TAKING HER MEDS Triage Nurses Notes Reviewed? yes Onset: Gradual Duration: day(s):, constant, continues in ED, getting worse Timing: single episode today Severity: mild, moderate No Modifying Factors: none LMP (ages 10-50): post menopausal : No Patient currently breastfeeds: No HPI: 61-year-old female past medical history of bipolar disorder presents for evaluation of anxiety, depression, paranoia and shortness of breath. Patient's states that patient was discharged from Inpatient Psychiatry on Sunday. Since then she has become more anxious and paranoid and is not sleeping. reports that patient has been up all night and is constantly pacing. feels that patient was discharged to soon from inpatient psych. Patient currently denies suicidal ideation or homicidal ideation. She does report some intermittent shortness of breath. She currently reports that she is breathing fine and that shortness of breath or happen randomly. She states that she has had shortness of breath in the past when she has felt very anxious. She denies any shortness breath on exertion, coughing, hemoptysis, chest pain, lower extremity edema, history of blood clots, or any other associated symptoms. She denies any drug use or alcohol use. Patient's is requesting that patient have a psychiatry eval. (JOSEFA TELLO PA-C) Past History Travel History Traveled to [place] past 21 day No Medical History Any Pertinent Medical History? see below for history Neurological: NONE EENT: NONE Cardiovascular: NONE, Reports varicose veins on legs. Respiratory: NONE Gastrointestinal: NONE Hepatic: NONE Renal: NONE Musculoskeletal: falls Psychiatric: bipolar disease Endocrine: Reports borderline DM, diet-controlled. Blood Disorders: NONE Cancer(s): NONE COPYRIGHT MANAGER/Reproductive: NONE History of MRSA: No History of VRE: No History of CDIFF: No Surgical History Surgical History: none Psychosocial History Who do you live with Spouse What is your primary language Malawian Tobacco Use: Never used ETOH Use: denies use Illicit Drug Use: denies illicit drug use Family History Hx Contributory? No (JOSEFA TELLO PA-C) Review of Systems Review of Systems Constitutional: Reports: no symptoms. EENTM: Reports: no symptoms. Respiratory: Reports: see HPI, short of breath. Cardiovascular: Reports: no symptoms. GI: Reports: no symptoms. Genitourinary: Reports: no symptoms. Musculoskeletal: Reports: no symptoms. Skin: Reports: no symptoms. Neurological/Psychological: Reports: see HPI, anxiety, depressed. Hematologic/Endocrine: Reports: no symptoms. Immunologic/Allergic: Reports: no symptoms. All Other Systems: Reviewed and Negative (JOSEFA TELLO PA-C) Physical Exam Physical Exam General Appearance: well developed/nourished, no apparent distress, alert, awake , anxious Neurologic/Psych: no motor/sensory deficits, awake, alert, oriented x 3, normal gait, depressed affect Comments: Head: Atraumatic, normocephalic Eyes: EOMI bilaterally, PERRLA, conjunctiva are not injected, no discharge, no nystagmus, fundus grossly normal bilaterally Nose: Atraumatic, no rhinorrhea, mucosa is not erythematous, no epistaxis. Sinuses are non-tender Ears: TM pearly dominique color bilaterally, external canal is clear, no discharge, hearing is normal Mouth: Appropriate dentition, no gingival bleeding, moist mucus membranes, no oral lesions, tonsils not erythematous or enlarged and free of exudate. Uvula rises midline. Neck: Supple, full active ROM, no lymphadenopathy, no midline tenderness to palpation, no thyromegaly, no tracheal deviation. Back: Non-tender, full active ROM, no scoliosis, no CVA tenderness Cardiovascular: regular rate and rhythm, no murmurs, rubs, or gallops. No JVD Respiratory: Chest is nontender. Regular respiratory rate and effort. No accessory muscle use. Lungs clear to auscultation bilaterally. Abdomen: Soft, non-tender, non-distended, no organomegaly. No rebound tenderness or guarding. Normoactive bowel sounds. Extremities: No edema. No gross deformities. No joint swelling. No calf swelling or tenderness. Full active and passive ROM. Strength 5/5 in upper and lower extremities. Peripheral pulses 2+ bilaterally, Patellar DTR 2+ Neuro: No confusion. Motor and sensory function is intact. Appropriate gait. Cerebellar function intact. Skin: Warm and dry. Appropriate turgor. No lesions or bruising. No appreciable rash on exposed skin. Core Measures ACS in differential dx? No CVA/TIA Diagnosis: No Severe Sepsis Present: No Septic Shock Present: No (OMER CHAND,JOSEFA) Progress Differential Diagnoses I considered the following diagnoses in my evaluation of the patient: [ Generalized anxiety disorder, panic attack complete, acute coronary syndrome, pneumonia, PE] Plan of Care: Orders Procedure Date/time Status ED CRISIS PSYCH CONSULT 03/09 1944 Active Add-on Test (ER Only) 03/09 1928 Active EKG 03/09 1928 Active TROPONIN LEVEL 03/09 1848 Complete URINE DRUG SCREEN FOR ER ONLY 03/09 183 Complete ETHANOL 03/09 183 Complete COMPREHENSIVE METABOLIC PANEL 03/09 1831 Complete CBC WITHOUT DIFFERENTIAL 03/09 1831 Complete Laboratory Tests 03/09/171950: Urine Opiates Screen < 100.00, Methadone Screen 54, Barbiturate Screen < 60, Ur Phencyclidine Scrn 7.00, Amphetamines Screen < 100, U Benzodiazepines Scrn 178, Urine Cocaine Screen < 50, Urine Cannabis Screen < 5.00 03/09/171847: Anion Gap 11, Estimated GFR > 60, BUN/Creatinine Ratio 7.5, Glucose 86, Calcium 10.4 H, Total Bilirubin 0.5, AST 26, ALT 34, Alkaline Phosphatase 73, Troponin I < 0.01, Total Protein 7.2, Albumin 4.6, Globulin 2.6, Albumin/Globulin Ratio 1.8, CBC w Diff NO MAN DIFF REQ, RBC 4.63, MCV 92.0, MCH 30.1, RDW 13.5, MPV 9.4 , Gran % 61.9, Lymphocytes % 29.1, Monocytes % 7.2, Eosinophils % 1.6, Basophils % 0.2, Absolute Granulocytes 4.7, Absolute Lymphocytes 2.2, Absolute Monocytes 0.6, Absolute Eosinophils 0.1, Absolute Basophils 0, PUBS MCHC 32.8 L, Serum Alcohol < 10.0 Patient seen and evaluated. She currently this evening stable and afebrile. Her lungs are clear to all station bilaterally. She'll be medically cleared to see psych. She will also have a chest x-ray EKG and troponin since she is reporting shortness of breath. Suspicion for cardiopulmonary disease is very low. Patient was seen as inpatient psych back in August and return to the emergency department the same week of her discharge during that time as well. Spoke with crisis and they will see her after she is medically cleared. Patient will be signed out to Dr. Douglas pending psych eval. Patient is not suicidal or homicidal and that she decided that she wants to go home she can any time. (OMER CHAND,JOSEFA) Diagnostic Imaging: Viewed by Me: Radiology Read. Discussed w/RAD: Radiology Read. Radiology Impression: PATIENT: BEV ESTRELLA PRESENT AGE: 61 PATIENT ACCOUNT NO: [id number] : 59 LOCATION: [facility] ORDERING PHYSICIAN: JOSEFA TELLO PA-C SERVICE DATE: 03/09/17 EXAM TYPE: RAD - XRY-CHEST XRAY, PA AND LATERAL EXAMINATION: XR CHEST CLINICAL INFORMATION: Shortness of breath. COMPARISON: Chest x-ray 08/16/2016 TECHNIQUE: 2 views of the chest were obtained. FINDINGS: Lungs are clear. No pulmonary vascular congestion. No infiltrate or pleural effusion. The heart size is normal. The cardiac and mediastinal contours are normal. There are multilevel degenerative changes of dorsal spine. IMPRESSION: Unremarkable examination. DICTATED BY: BREA CUEVA MD DATE/TIME DICTATED:03/09/172008 CENTRIFUGAL WAX MOLDER:VINICIO DATE/TIME TRANSCRIBED:03/09/172008 CONFIDENTIAL, DO NOT COPY WITHOUT APPROPRIATE AUTHORIZATION. <Electronically signed in Other Vendor System> SIGNED BY: BREA CUEVA MD 03/09/172012 Initial ED EKG: normal sinus rhythm, LVH, no ST T wave changes Hand-Off Endorsed To: BRAULIO DOULGAS MD Endorsed Time: 2106 Pending: consult (crisis) (JOSEFA TELLO PA-C) Comments: Patient has been seen and evaluated by weekday babysitter. Patient has an appointment at [facility] for Sunday morning. Patient's is going to monitor her over the weekend and they promise to return or call 211 for any concerns. (BRAULIO DOUGLAS MD) Departure Departure Condition: Stable Clinical Impression Primary Impression: Anxiety Referrals: WILLIAM MORENO MD (PCP/Family) Departure Forms: Customer Survey General Discharge Information (JOSEFA TELLO PA-C) Departure Disposition: HOME OR SELF CARE Additional Instructions: CALL 211 OR RETURN TO THE ER FOR ANY THOUGHTS OF HARMING YOURSELF OR ANYONE ELSE OR FOR ANBY CONCERNS PA/TIRE TRIMMER HAND Co-Sign Statement Statement: ED Attending supervision documentation- [X] I saw and evaluated the patient. I have also reviewed all the pertinent lab results and diagnostic results. I agree with the findings and the plan of care as documented in the PA's/TIRE TRIMMER HAND's documentation. [X] I have reviewed the ED Record and agree with the PA's/TIRE TRIMMER HAND's documentation. [] Additions or exceptions (if any) to the PAs/TIRE TRIMMER HAND's note and plan are summarized below: [] (BRAULIO DOUGLAS MD) Critical Care Note Critical Care Note Critical Care Time: non-applicable (JOSEFA TELLO PA-C)
[2017-03-09 22:12] VITALS: BP 131/67
--- NOTE | 2017-03-09 22:14 | ED PSYCH CRISIS CONSULTATION ---
Crisis Consult Basic Assessment Date of Consult: 03/09/17 Responsible Person/Accompanied By: Brought it by Insurance Authorization: Insurance #1: Insurance name: [employer] MEDIC[employer] PLAN Phone number: Policy number: [id number] Group number: Authorization number: ED Provider: Patient's ED Provider: JOSEFA TELLO PA-C Primary Care Physician: Patient's PCP: WILLIAM MORENO MD PCP's Current Psychiatrist: Abilio Lipscomb MD Chief Complaint: Psychiatric Related Complaint Patient's Quote: "My said I wasnt doing well...staying in bed" Present Illness: Patient is a 61 year old woman who presents to [facility] emergency department with somatic complaint of difficulty breathing and psychiatic related complaints of anxiety / depressed mood. Patient has longstanding mental health diagnosis of bipolar disorder with psychosis and was recently discharged from [facility]'s psychiatric inpatient unit [facility] this past week. Discharge plan was for patient to follow up with [facility] intensive outpatient program (IOP). Patient attended two IOP groups and states "I guess theyre going well." At discharge from inpatient, patient was prescribed Remeron, Effexor, risperidone, and Xanax. Patient's urine toxicology screening is negative for all substances. Patient denies any high risk factors such as suicidality or homicidality - patient denies suicidal ideation, intent or plan. There is no evidence of psychosis - patient denies auditory and visual hallucination. Patient does have a history of paranoid / delusional behavior. denies any concern of paranoia / delusions currently. Patient presents with depressed mood / flat affect and rates anxiety at ~ 5 on a scale of 1-10. Patient speech was soft / slow with delayed responses to questions. Patient's asserts he disagreed with the discharge plan from [facility] this past week and believes patient should have remained on the unit longer. Patient is adamant that if patient were to be considered for an inpatient admission today, he wants patient to be admitted to [facility]'s inpatient unit and will refuse patient transfer to any other hospital as they have had negative experiences previously with [facility], [facility], [facility]. This commercial underwriter advised patient and her on crisis protocol when an inpatient psychiatric disposition is present. Patient's reports patient has not been sleeping well and staying in bed during the day. Patient has been able to leave the home when promted for therapy appointments. reports patient is anxious and often summons him for no reason. believes her medication regimen may have to be readjusted. Patient's Address: [address] [place] [address] Other Phone Number: Who Do You Live With? Spouse Family/Informants Interviewed: - Fish Woodard Allergies - Coded Allergies: bupropion (From WELLBUTRIN) (unknown 02/20/17) epinephrine (UNKNOWN 02/19/17) fluoxetine (UNKNOWN 02/19/17) nitrofurantoin (UNKNOWN 02/19/17) Current Medications - Scheduled Medications Alprazolam (Xanax) 0.25 MG TABLET 0.5 MG PO 2200 anxiety at bedtime #14 TAB Prescribed by ABILIO LIPSCOMB MD on 03/05/17 Mirtazapine (Remeron) 15 MG TABLET 7.5 MG PO 2200 sleep induction/anxiety #14 TAB Prescribed by ABILIO LIPSCOMB MD on 03/05/17 Risperidone (Risperdal) 4 MG TABLET 4 MG PO 2200 clarify thinking/augmentation #14 TAB Prescribed by ABILIO LIPSCOMB MD on 03/05/17 Venlafaxine HCl (Effexor XR) 75 MG CAP.ER.24H 225 MG PO 1700 anti-depressant # 42 TAB Prescribed by ABILIO LIPSCOMB MD on 03/05/17 Laboratory Results: Laboratory Tests 03/09/171950: Urine Opiates Screen < 100.00, Methadone Screen 54, Barbiturate Screen < 60, Ur Phencyclidine Scrn 7.00, Amphetamines Screen < 100, U Benzodiazepines Scrn 178, Urine Cocaine Screen < 50, Urine Cannabis Screen < 5.00 03/09/178: Anion Gap 11, Estimated GFR > 60, BUN/Creatinine Ratio 7.5, Glucose 86, Calcium 10.4 H, Total Bilirubin 0.5, AST 26, ALT 34, Alkaline Phosphatase 73, Troponin I < 0.01, Total Protein 7.2, Albumin 4.6, Globulin 2.6, Albumin/Globulin Ratio 1.8, CBC w Diff NO MAN DIFF REQ, RBC 4.63, MCV 92.0, MCH 30.1, RDW 13.5, MPV 9.4 , Gran % 61.9, Lymphocytes % 29.1, Monocytes % 7.2, Eosinophils % 1.6, Basophils % 0.2, Absolute Granulocytes 4.7, Absolute Lymphocytes 2.2, Absolute Monocytes 0.6, Absolute Eosinophils 0.1, Absolute Basophils 0, PUBS MCHC 32.8 L, Serum Alcohol < 10.0 Past History Past Medical History Any Pertinent Medical History? unobtainable Neurological: NONE EENT: NONE Cardiovascular: NONE, Reports varicose veins on legs. Respiratory: NONE Gastrointestinal: NONE Hepatic: NONE Renal: NONE Musculoskeletal: falls Psychiatric: bipolar disease Endocrine: Reports borderline DM, diet-controlled. 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 Is engaged in mental health outpatient treatment. Supportive significant other. Physical Limitations (Interventions): n/a Psychiatric Treatment History Psych Treatment Psychiatric Treatment Yes Inpatient Treatment Yes Outpatient Treatment Yes Location of Treatment [facility] - several inpatient episodes 2012, 2016. Currently in IOP Reason for Treatment Bipolar disorder with psychotic features Dates of Treatment 2012, 2016 Response to Treatment Varied Diagnosis by History: Bipolar Disorder with psychosis Substance Use/Abuse History Drug Use/Abuse Substances Used/Abused No First Use N/A Last Used N/A How much used/taken N/A How often N/A For how long N/A Route of use N/A Substance Abuse Treatment Substance Abuse Treatment Past Substance Abuse [place] No Inpatient Treatment No Outpatient Treatment No Location of Treatment N/A Reason for Treatment N/A Dates of Treatment N/A Response to Treatment N/A Comments: - Current Mental Status Mental Status Orientation: Person, Place, Situation Affect: Depressed, Flat Speech: Delayed, Soft Neuro-vegetative: Anhedonia, Loss of Interest, Sleep Disturbance Appearance Appearance- Dress/Hygiene: Patient dressed in hospital attire - no remarkable features observed. Behaviors Thought Process: WNL Thought Content: WNL Memory: WNL Insight: Fair SI/HI Risk Assessment Past Suicidal Ideation/Attempts Yes Current Suicidal Ideation/Att No Past Homicidal Ideation/Att: No Current Homicidal Ideation/Attempts No Degree of Intent: None Risk Factors: SA/MH hospitalized Lethality Ratin (mild) PTSD Checklist PTSD Done? patient declined ED Management Sitter: Yes Restraints: No DSM5/PS Stressors/Medical Prob Diagnosis' (DSM 5, Stressors, Medical): F31.3 Bipolar Disorder, Depressed Current GAF: 40 Departure Disposition Psych Medical Clearance Date: 03/09/17 Medically Cleared at: 2100 Time Started: 2099 Time Ended: 2144 Psychiatrist Consulted: Cindy BRAMBILA,Edward Date Disposition Established: 03/09/17 Time Disposition Established: 2144 Plan for Disposition - Modality: [facility] Facility: [facility] Rationale for Disposition: Patient does not present with any high risk factors which necessitate a hold for further assessment or meet criteria for an inpatient psychiatric admission. The primary complaint today was difficulty breathing - patient was medically cleared. Patient's is concerned about patient's depressed mood but indicates he will facilitate an appointment for her early next week at [facility] to consider a medication adjustment and assess if she is in an appropriate level of care. Patient and deny any risk or concern with patient discharge this evening with plan to follow up with [facility] program. Referrals TIFFANIE BRAMBILA,WILLIAM (PCP/Family)
== END 2017-03-09 22:11 ==
LOC: ERH 17:48
PROVIDERS: Emergency Medicine
DX: F41.9 Anxiety disorder, unspecified (principal); R06.02 Shortness of breath; R73.03 Prediabetes
CPT/HCPCS: 80307; 93005; 93010; G0463; G0480

== ENCOUNTER 2017-09-17 23:01 | Emergency (ER) | payer OTHER ==
[~2017-09-17] VITALS: Ht 167.6 cm; Wt 79.4 kg
--- NOTE | 2017-09-17 23:20 | ED PSYCHIATRIC COMPLAINT ---
See Addendum History of Present Illness General Chief Complaint: Psychiatric Related Complaint Stated Complaint: BIBA PSYCH EVAL Source: patient, EMS Exam Limitations: confusion Vital Signs & Intake/Output Vital Signs & Intake/Output Vital Signs Date Time Temp Pulse Resp B/P B/P Pulse O2 O2 Flow FiO2 Mean Ox Delivery Rate 09/18 1432 98.5 86 144/83 97 09/18 1209 98.3 102 18 167/70 99 Room Air 09/18 1005 98.5 106 18 158/86 94 Room Air 09/18 0820 97.7 99 20 156/71 99 Room Air / 0531 98.2 85 20 132/59 98 / 0200 97.8 96 18 146/82 97 Room Air 09/17 2311 98.7 100 20 156/84 97 Room Air ED Intake and Output 09/18 0000 09/17 1200 Intake Total Output Total Balance Patient 185 lb Weight Weight Reported by Patient Measurement Method Allergies Coded Allergies: bupropion (From WELLBUTRIN) (unknown 02/20/17) epinephrine (UNKNOWN 02/19/17) fluoxetine (UNKNOWN 02/19/17) nitrofurantoin (UNKNOWN 02/19/17) Reconcile Medications Alprazolam (Xanax) 0.25 MG TABLET 0.5 MG PO 2200 anxiety at bedtime Mirtazapine (Remeron) 15 MG TABLET 7.5 MG PO 2200 sleep induction/anxiety Risperidone (Risperdal) 4 MG TABLET 4 MG PO 2200 clarify thinking/augmentation Venlafaxine HCl (Effexor XR) 75 MG CAP.ER.24H 225 MG PO 1700 anti-depressant Triage Note: PT DIEGO, FOUND PARKED IN HER CAR IN FRONT OF A HOUSE, TELLING EMS "THEY ARE STALKING ME". PT TOLD EMS SHE IS HEARING VIOCES. PER EMS PT HAS HX DEPRESSION. WAS ON SCENE. PT CALM AND COOEPRATIVE AT THIS TIME. PT ON A PEER. NEGATIVE SI/HI Triage Nurses Notes Reviewed? yes HPI: Patient was brought in for evaluation to be found in a parked car in the middle of the street. Patient feels that there are people after her. Patient is having auditory hallucinations. Patient feels that her neighbors talking to her through her computer. Patient admits to visual hallucinations. Patient denies suicidal or homicidal ideations. (Mukul BRAMBILA,Cristian Shah) Past History Travel History Traveled to [place] past 21 day No Medical History Any Pertinent Medical History? see below for history Neurological: NONE EENT: NONE Cardiovascular: NONE, Reports varicose veins on legs. Respiratory: NONE Gastrointestinal: NONE Hepatic: NONE Renal: NONE Musculoskeletal: falls Psychiatric: bipolar disease Endocrine: Reports borderline DM, diet-controlled. 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 No (Mukul BRAMBILA,Cristian Shah) Review of Systems Review of Systems Constitutional: Reports: no symptoms. EENTM: Reports: no symptoms. Respiratory: Reports: no symptoms. Cardiovascular: Reports: no symptoms. GI: Reports: no symptoms. Genitourinary: Reports: no symptoms. Musculoskeletal: Reports: no symptoms. Skin: Reports: no symptoms. Neurological/Psychological: Reports: see HPI. Hematologic/Endocrine: Reports: no symptoms. Immunologic/Allergic: Reports: no symptoms. All Other Systems: Reviewed and Negative (Mukul BRAMBILA,Cristian Shah) Physical Exam Physical Exam General Appearance: well developed/nourished, mild distress Head: atraumatic Eyes: Bilateral: PERRL, EOMI. Ears, Nose, Throat: normal pharynx, normal ENT inspection, hearing grossly normal Neck: normal inspection, supple Respiratory: normal breath sounds Cardiovascular: regular rate/rhythm Gastrointestinal: soft, non-tender Extremities: normal range of motion Neurological/Psychiatric: no motor/sensory deficits, awake, alert, anxious, oriented x 3 Appearance/Memory/Insight: denies illness Behavoir/Eye Contact/Speech: cooperative, normal speech, good eye contact Thoughts/Hallucinations: auditory hallucinations, TQNGENTAL Skin: intact, normal color, warm/dry SAD PERSONS Done? CRISIS CONSULT OBTAINED (Mukul BRAMBILA,Cristian Shah) Progress Differential Diagnosis: drug intoxication, drug overdose, drug withdrawal, electrolyte abnormality Plan of Care: Orders Procedure Date/time Status Regular Diet 09/18 B Active Patient Safety Monitor 09/18 1900 Active Patient Safety Monitor 09/18 1500 Active Patient Safety Monitor 09/18 1100 Active Patient Safety Monitor 02/06 0700 Active Patient Safety Monitor 09/17 2318 Active URINE DRUGS OF ABUSE 09/17 2318 Complete ETHANOL 09/17 2318 Complete COMPREHENSIVE METABOLIC PANEL 09/17 2318 Complete CBC WITHOUT DIFFERENTIAL 09/17 2318 Complete EKG 09/17 2318 Active ED CRISIS PSYCH CONSULT 09/17 2318 Active Current Medications Sig/Gideon Start time Last Medication Dose Stop Time Status Admin Risperidone 4 MG QPM 09/18 2200 UNVr (Risperidone) Venlafaxine HCl 225 MG 1700 09/18 1700 UNVr (Effexor Xr) Guaifenesin/ 10 ML Q6P PRN 09/18 1330 AC 09/18 Dextromethorphan 1329 (Robitussin Dm) Laboratory Tests 09/18/17 0059: Urine Opiates Screen < 100.00, Methadone Screen 42, Barbiturate Screen < 60, Ur Phencyclidine Scrn < 6.00, Amphetamines Screen < 100, U Benzodiazepines Scrn < 85, Urine Cocaine Screen < 50, Urine Cannabis Screen < 5.00 09/17/17 2350: Anion Gap 13, Estimated GFR > 60, BUN/Creatinine Ratio 21.4, Glucose 109 H, Calcium 9.8, Total Bilirubin 0.2, AST 35, ALT 35, Alkaline Phosphatase 77, Total Protein 7.3, Albumin 4.3, Globulin 3.0, Albumin/Globulin Ratio 1.4, CBC w Diff NO MAN DIFF REQ, RBC 4.14 L, MCV 90.4, MCH 30.6, MCHC 33.8, RDW 13.6, MPV 8.8, Gran % 67.6, Lymphocytes % 23.2, Monocytes % 7.6, Eosinophils % 0.9, Basophils % 0.7, Absolute Granulocytes 6.1, Absolute Lymphocytes 2.1, Absolute Monocytes 0.7 H, Absolute Eosinophils 0.1, Absolute Basophils 0.1, Serum Alcohol < 10.0 Initial ED EKG: NSR, no ST T wave changes Prior EKG: unchanged Hand-Off Endorsed To: Kayode Mckeon MD Endorsed Time: 0700 Pending: consult (Mukul BRAMBILA,Cristian Shah) Hand-Off Endorsed To: Anurag Drake MD Endorsed Time: 1503 Pending: consult (Kayode Mckeon MD) Departure Departure Disposition: STILL A PATIENT Condition: Stable Clinical Impression Primary Impression: Hallucination Secondary Impressions: Bipolar 1 disorder Referrals: Ovi Hankins MD (PCP/Family) Departure Forms: Customer Survey General Discharge Information (Mukul BRAMBILA,Cristian Shah)
[2017-09-17 23:59] LABS: ABSOLUTE BASOPHIL COUNT 0.1 /CUMM (0.0-0.2); ABSOLUTE EOSINOPHIL COUNT 0.1 /CUMM (0.0-0.7); ABSOLUTE GRANULOCYTE CT 6.1 /CUMM (1.4-6.5); ABSOLUTE LYMPH COUNT 2.1 /CUMM (1.2-3.4); ABSOLUTE MONOCYTE COUNT 0.7 /CUMM (0.10-0.60); BASOPHIL % 0.7 % (0.0-2.0); EOSINOPHIL % 0.9 % (0-5); GRANULOCYTE % 67.6 % (42.2-75.2); HEMATOCRIT 37.4 % (37-47); MEAN CORPUSCULAR HGB 30.6 PG (27.0-31.0); MEAN CORPUSCULAR HGB CONC 33.8 G/DL (33.0-37.0); MEAN CORPUSCULAR VOLUME 90.4 FL (81.0-99.0); MEAN PLATELET VOLUME 8.8 FL (7.4-10.4); PLATELET COUNT 196 /CUMM (130-400); RBC DISTRIBUTION WIDTH 13.6 % (11.5-14.5); RED BLOOD CELL CT 4.14 /CUMM (4.20-5.40); WHITE BLOOD CELL COUNT 9.1 /CUMM (4.8-10.8)
--- NOTE | 2017-09-18 11:25 | ED PSYCH CRISIS CONSULTATION ---
See Addendum Crisis Consult Basic Assessment Date of Consult: 09/18/17 Responsible Person/Accompanied By: PEER Insurance Authorization: Insurance #1: Insurance name: [facility] Phone number: Policy number: [id number] Group number: Authorization number: ED Provider: Patient's ED Provider: Mukul BRAMBILA,Cristian Shah Primary Care Physician: Patient's PCP: Ovi Hankins MD PCP's Current Psychiatrist: [facility] Chief Complaint: Psychiatric Related Complaint delusional Patient's Quote: i dont know Present Illness: Pt is a 62 y.o. M/w/F brought to [facility] ED by EMS on a PEER after, being found by police sitting in a car outside of a stranger's home who she thought had her stalker in it. Per spouse Fish, , who was woken from his sleep by the police and asked to go about 3 miles from home and help with his and her car. Pt had placed her car back end to the curb and was shinning highbeams into a house which spouse was unfamiliar with. When police gave pt directions, she did not follow them, and outwardly refused them. She at one point tried to close an officer's arm in the car window. It took many EMS workers to get pt out of her car and to the hospital. Pt has a long hx of Mental health needs with several admits to inpt ( last 10 yrs.) psych at [facility] and other facilities, with the last being 02/26. Pt is dx with bipolar with psychotic features and does not have a substance abuse hx. She is not always med and tx complaint and has a hx of Overdosing on Meds in suicide gestures. Pt was seen yesterday at out pt; her meds were increased by MD Darion due to psychotic sx including delusions, bizarre paranoid behavior, and circumstational thoughts. This increase in meds was not implemented because pt left the house before taking her bedtime meds which her spouse leaves out for her to take. Pt meds are in a lock box managed by her spouse. Spouse reports pt has been becoming increasing difficult over the past few weeks. She seems to have a irritable edge and is ruminating and perseverating meanly about spouse's father who has been for years. He also reports about 2 months of increase spending buying recently $650 worth of winter coats from [employer]. Spouse reports pt is not sleeping but, up all night on the computer. He reports she is eating fine and see her take her meds at breakfast when they eat together at about 5 a.m. Pt and spouse babysit for their grandchildren. Spouse is the primary caregiver and until recently pt was a good contributors of care also. Spouse is frustrated with pt's needs, lack of con' t stablization, and our mental health system. Spouse reports he has expressed his opinion on her needs and does not always feel heard so," has back away" from participation in her care needs. He would like to know where pt goes for tx. he verbalizes her need for help and that she is acting dangerously. This Sw interviews pt and finds her with psychotic sx and difficult to interview. She is alert and oriented x3 but her thoughts can be disorganized and tangential and pressured. She laughs at the things she says. She denies SI/HI/AH/VH. She does not seem to be responding to internal stimuli. Pt judgment, insight and reality are impaired and she is in need of hospitalization at this time for gravely disabled. Pt discussed with MD Darion who met with pt yesterday and agrees after reviewing presentation today that pt is in need of hospitalization Patient's Address: [address] [place] [address] Other Who Do You Live With? Spouse Family/Informants Interviewed: spoke with spouse Allergies - Coded Allergies: bupropion (From WELLBUTRIN) (unknown 02/20/17) epinephrine (UNKNOWN 02/19/17) fluoxetine (UNKNOWN 02/19/17) nitrofurantoin (UNKNOWN 02/19/17) Current Medications - Scheduled Medications Alprazolam (Xanax) 0.25 MG TABLET 0.5 MG PO 2200 anxiety at bedtime #14 TAB Prescribed by Jigar White MD on 03/05/17 Mirtazapine (Remeron) 15 MG TABLET 7.5 MG PO 2200 sleep induction/anxiety #14 TAB Prescribed by Jigar White MD on 03/05/17 Risperidone (Risperdal) 4 MG TABLET 4 MG PO 2200 clarify thinking/augmentation #14 TAB Prescribed by Jigar White MD on 03/05/17 Venlafaxine HCl (Effexor XR) 75 MG CAP.ER.24H 225 MG PO 1700 anti-depressant # 42 TAB Prescribed by Jigar White MD on 03/05/17 Laboratory Results: Laboratory Tests 09/18/17 0059: Urine Opiates Screen < 100.00, Methadone Screen 42, Barbiturate Screen < 60, Ur Phencyclidine Scrn < 6.00, Amphetamines Screen < 100, U Benzodiazepines Scrn < 85, Urine Cocaine Screen < 50, Urine Cannabis Screen < 5.00 09/17/17 2350: Anion Gap 13, Estimated GFR > 60, BUN/Creatinine Ratio 21.4, Glucose 109 H, Calcium 9.8, Total Bilirubin 0.2, AST 35, ALT 35, Alkaline Phosphatase 77, Total Protein 7.3, Albumin 4.3, Globulin 3.0, Albumin/Globulin Ratio 1.4, CBC w Diff NO MAN DIFF REQ, RBC 4.14 L, MCV 90.4, MCH 30.6, MCHC 33.8, RDW 13.6, MPV 8.8, Gran % 67.6, Lymphocytes % 23.2, Monocytes % 7.6, Eosinophils % 0.9, Basophils % 0.7, Absolute Granulocytes 6.1, Absolute Lymphocytes 2.1, Absolute Monocytes 0.7 H, Absolute Eosinophils 0.1, Absolute Basophils 0.1, Serum Alcohol < 10.0 (Yudelka SEARCH COORDINATOR,Surekha) Addendum Addendum I asked pt is she wanted an eye mask, as the light in the hallway are bright and she curling herhadn around her forhead, she offered her osn and daughter in law bought her one but it "was too big, one size fits all, but I guess I'm bigheaded , Im a conehead, whats it called, a melon head". pt began to giggle and states "dont get me started", she was having a fit of laughter for good while, and then ended with "this is [employer] can I take your order?". Pt is a hold over for inpatient hospitialization. (CapWillam crane LCSW Past History Past Medical History Neurological: NONE EENT: NONE Cardiovascular: NONE, Reports varicose veins on legs. Respiratory: NONE Gastrointestinal: NONE Hepatic: NONE Renal: NONE Musculoskeletal: falls Psychiatric: bipolar disease Endocrine: Reports borderline DM, diet-controlled. Blood Disorders: NONE Cancer(s): NONE PATTERN HAND/Reproductive: NONE Psychosocial History Strengths/Capabilities: Able to ask for help. Is engaged in mental health outpatient treatment. Supportive significant other. Physical Limitations (Interventions): n/a Psychiatric Treatment History Psych Treatment Psychiatric Treatment Yes Inpatient Treatment Yes Outpatient Treatment Yes Location of Treatment [facility] and out pt recently but other hospitalizations outside Reason for Treatment psychosis Dates of Treatment 2016 Diagnosis by History: Bipolar Disorder with psychosis Substance Use/Abuse History Drug Use/Abuse Substances Used/Abused No Substance Abuse Treatment Substance Abuse Treatment Past Substance Abuse [place] No Inpatient Treatment No Outpatient Treatment No (Surekha Jha LCSW) Current Mental Status Mental Status Orientation: Person, Place Affect: WNL Speech: Pressured Neuro-vegetative: poor sleep on computer for hours with some shopping and unclear activity, eating is good per spouse Appearance Appearance- Dress/Hygiene: neatly groomed wearing make up Behaviors Thought Process: Disorganized, Loose Association, Tangential Thought Content: Paranoid, Sexual, speaking of others from her past and spouses sexual activity. Memory: Impaired (can not assess) Insight: Poor SI/HI Risk Assessment Past Suicidal Ideation/Attempts Yes (OD on meds ) Current Suicidal Ideation/Att No Past Homicidal Ideation/Att: No (no) Current Homicidal Ideation/Attempts No Degree of Intent: None Gravely Disabled: Lack of Insight, Poor Judgment, poor reality testing Risk Factors: history of suicide atmpts, SA/MH hospitalized, limited support ( frustrated with pt's behavior) Lethality Ratin (mild) PTSD Checklist PTSD Done? pt unable to participate (pt na) ED Management Sitter: Yes Restraints: No (Surekha Jha LCSW) DSM5/PS Stressors/Medical Prob Diagnosis' (DSM 5, Stressors, Medical): Bipolar disorder with psychosis Current GAF: 25 Comments: Pt in need of admission to psych bed (Surekha Jha LCSW) Departure Disposition Psych Medical Clearance Date: 09/18/17 Medically Cleared at: 0900 Time Started: 0900 Time Ended: 1130 Psychiatrist Consulted: Luly Orlando MD Date Disposition Established: 09/18/17 Time Disposition Established: 1130 Plan for Disposition - Modality: Bed Search Rationale for Disposition: case reviewed with Dr. Orlando who recoomends in mental health hopitalization DUE poor judgment and insight, poor reality testing. Pt is delusional. Type of IP Admission: PEC Referrals Ovi Hankins MD (PCP/Family) (Surekha Jha LCSW)
[2017-09-19 13:27] VITALS: BP 118/76
== END 2017-09-19 13:57 ==
LOC: ERH 23:01
PROVIDERS: Emergency Medicine
DX: R44.0 Auditory hallucinations (principal); F31.9 Bipolar disorder, unspecified; R73.03 Prediabetes
CPT/HCPCS: 80307; 93005; 93010; G0463; G0480

== ENCOUNTER 2018-05-01 02:17 | Inpatient (IN) | payer OTHER ==
[~2018-05-01] VITALS: Ht 167.6 cm; Wt 90.7 kg
[2018-05-01 04:55] LABS: ABSOLUTE BASOPHIL COUNT 0 /CUMM (0.0-0.2); ABSOLUTE EOSINOPHIL COUNT 0 /CUMM (0.0-0.7); ABSOLUTE LYMPH COUNT 1.9 /CUMM (1.2-3.4); ABSOLUTE MONOCYTE COUNT 0.5 /CUMM (0.10-0.60); BASOPHIL % 0.2 % (0.0-2.0); EOSINOPHIL % 0.5 % (0-5); GRANULOCYTE % 67.1 % (42.2-75.2); MEAN CORPUSCULAR HGB 30.6 PG (27.0-31.0); MEAN CORPUSCULAR HGB CONC 33.6 G/DL (33.0-37.0); MEAN CORPUSCULAR VOLUME 90.8 FL (81.0-99.0); MEAN PLATELET VOLUME 9.7 FL (7.4-10.4); PLATELET COUNT 211 /CUMM (130-400); RBC DISTRIBUTION WIDTH 13.4 % (11.5-14.5); RED BLOOD CELL CT 4.41 /CUMM (4.20-5.40); WHITE BLOOD CELL COUNT 7.5 /CUMM (4.8-10.8)
--- NOTE | 2018-05-01 05:00 | ED PSYCHIATRIC COMPLAINT ---
History of Present Illness General Chief Complaint: Psychiatric Related Complaint Stated Complaint: BIPOLAR OFF MEDS Source: patient, family, EMS Exam Limitations: clinical condition Vital Signs & Intake/Output Vital Signs & Intake/Output Vital Signs Date Time Temp Pulse Resp B/P B/P Pulse O2 O2 Flow FiO2 Mean Ox Delivery Rate 05/03 727 98.3 88 146/88 05/02 1925 98.5 95 129/72 Allergies Coded Allergies: bupropion (From WELLBUTRIN) (unknown 02/20/17) epinephrine (UNKNOWN 02/19/17) fluoxetine (UNKNOWN 02/19/17) nitrofurantoin (UNKNOWN 02/19/17) Reconcile Medications Alprazolam (Xanax) 0.25 MG TABLET 0.5 MG PO 2200 anxiety at bedtime Mirtazapine (Remeron) 15 MG TABLET 7.5 MG PO 2200 sleep induction/anxiety Risperidone (Risperdal) 4 MG TABLET 4 MG PO 2200 clarify thinking/augmentation Venlafaxine HCl (Effexor XR) 75 MG CAP.ER.24H 225 MG PO 1700 anti-depressant Triage Nurses Notes Reviewed? yes Onset: Gradual Duration: day(s): Timing: recent history Associated Symptoms: anxiety HPI: 62 yo woman h/o bipolar disorder presents with increasing symptoms. Per the medics, she has not been taking her meds for several days. She locked herself in her bathroom and had increased delusional thinking with tangential thoughts. She denies SI/HI. She denies drug and alcohol abuse. She notes no recent injury and is otherwise well. (Lester BRAMBILA,Brian Jules) Past History Travel History Traveled to [place] past 21 day No Medical History Any Pertinent Medical History? see below for history Neurological: NONE EENT: NONE Cardiovascular: NONE, Reports varicose veins on legs. Respiratory: NONE Gastrointestinal: NONE Hepatic: NONE Renal: NONE Musculoskeletal: falls Psychiatric: bipolar disease Endocrine: Reports borderline DM, diet-controlled. 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 No (Lester BRAMBILA,Brian Jules) Review of Systems Review of Systems Constitutional: Reports: no symptoms. EENTM: Reports: no symptoms. Respiratory: Reports: no symptoms. Cardiovascular: Reports: no symptoms. GI: Reports: no symptoms. Genitourinary: Reports: no symptoms. Musculoskeletal: Reports: no symptoms. Skin: Reports: no symptoms. Neurological/Psychological: Reports: no symptoms. Hematologic/Endocrine: Reports: no symptoms. Immunologic/Allergic: Reports: no symptoms. All Other Systems: Reviewed and Negative (Lester BRAMBILA,Brian Jules) Physical Exam Physical Exam General Appearance: well developed/nourished, mild distress Head: atraumatic Eyes: Bilateral: PERRL, EOMI. Ears, Nose, Throat: normal pharynx, normal ENT inspection, hearing grossly normal Neck: normal inspection, supple Respiratory: normal breath sounds Cardiovascular: regular rate/rhythm Gastrointestinal: soft, non-tender Extremities: normal range of motion Neurological/Psychiatric: awake, anxious, disoriented, with tangential thinking Appearance/Memory/Insight: denies illness, disheveled, impaired insight Behavoir/Eye Contact/Speech: cooperative Thoughts/Hallucinations: no apparent hallucination Skin: intact, normal color, warm/dry SAD PERSONS Done? patient not suicidal (Lester BRAMBILA,Brian Jules) Progress Differential Diagnosis: bipolar vs other. Plan of Care: Orders Procedure Date/time Status MISSING MEDICATION FORM 05/03 UNK Active INIT HSP (30 MIN) 05/02 UNK Complete Change service to 05/02 UNK Active Nursing Misc 05/02 UNK Active PHYSICIAN CONSULT 05/02 UNK Active Current Medications Sig/Gideon Start time Last Medication Dose Stop Time Status Admin Venlafaxine HCl 75 MG DAILY 05/03 0900 AC (Effexor Xr) Glycerin/Mineral Oil 1 ASHLI TIDPRN PRN 05/02 1030 AC (Lubriderm) Lorazepam 1 MG AT BEDTIME 05/01 2100 AC 05/02 (Ativan) 2204 Risperidone 2 MG BID 05/01 2100 AC 05/03 (risperiDONE) 0800 Acetaminophen 650 MG Q4P PRN 05/01 184 AC (Tylenol) Al Hydroxide/Mg 30 ML Q4-6 PRN PRN 05/01 184 AC Hydroxide (Maalox Plus) Lorazepam 1 MG Q4 HRS NEEDED PRN 05/01 184 AC (Ativan) Lorazepam 1 MG AT BEDTIME NEED.. 05/01 184 AC (Ativan) Magnesium Hydroxide 30 ML AT BEDTIME PRN 05/01 1845 AC (Milk Of Magnesia) Benztropine Mesylate 1 MG Q6P PRN 05/01 1830 AC (Cogentin 1 MG Tablet) Haloperidol 5 MG Q6P PRN 05/01 1830 AC (Haldol) Lorazepam 2 MG Q6P PRN 05/01 1830 AC (Ativan) (Lester BRAMBILA,Brian Jules) Departure Departure Disposition: STILL A PATIENT Condition: Stable Clinical Impression Primary Impression: Bipolar disorder Referrals: Ovi Hankins MD (PCP/Family) Departure Forms: Customer Survey General Discharge Information (Lester BRAMBILA,Brian Jules)
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
[2018-05-01 18:32] VITALS: BP 149/79
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
[2018-05-02 08:07] VITALS: BP 148/88
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
--- NOTE | 2018-05-02 10:33 | SOCIAL WORKER PROG NOTE PSYCH ---
Social Work Progress Note Progress Note Pt can not articulate exactly why she is here . She is disorganized and not oriented. She told her she was preganant. Continue to monitor.
--- NOTE | 2018-05-02 12:08 | SOCIAL WORKER PROG NOTE PSYCH ---
Social Work Progress Note Progress Note I Ritchie Bedolla (ELECTRICIAN ASSISTANT Azure Architect) completed the social history with Tameka. Her thinking was tangential and seemed to have trouble stayimg focused on the questions asked.
--- NOTE | 2018-05-02 18:48 | History & Physical ---
General Information and HPI MD Statement: I have seen and personally examined BEV ESTRELLA and documented this H&P. The patient is a 62 year old F who presented with a patient stated chief complaint of being delusional. Source of Information: patient, family, EMS Exam Limitations: unable to give history History of Present Illness: 62-year-old white female with history of bipolar disease as been off the medication for several days. Being increasingly delusional thinking with tangential thoughts. Was brought in by ambulance after the hospital called the ambulance to bring her in to be evaluated. Having bizarre behavior was inappropriate laugh. When I saw her she was calm in bed after being medicated Allergies/Medications Allergies: Coded Allergies: bupropion (From WELLBUTRIN) (unknown 02/20/17) epinephrine (UNKNOWN 02/19/17) fluoxetine (UNKNOWN 02/19/17) nitrofurantoin (UNKNOWN 02/19/17) Home Med list Alprazolam (Xanax) 0.25 MG TABLET 0.5 MG PO 2200 anxiety at bedtime Mirtazapine (Remeron) 15 MG TABLET 7.5 MG PO 2200 sleep induction/anxiety Risperidone (Risperdal) 4 MG TABLET 4 MG PO 2200 clarify thinking/augmentation Venlafaxine HCl (Effexor XR) 75 MG CAP.ER.24H 225 MG PO 1700 anti-depressant Compliance With Home Meds: POOR Past History Travel History Traveled to [place] past 21 day No Medical History Neurological: NONE EENT: NONE Cardiovascular: varicose veins on legs. Respiratory: NONE Gastrointestinal: NONE Hepatic: NONE Renal: NONE Musculoskeletal: NONE Psychiatric: bipolar disease, psychosis Endocrine: borderline DM, diet-controlled. Blood Disorders: NONE Cancer(s): NONE TAFE LECTURER/Reproductive: NONE History of MRSA: No History of VRE: No History of CDIFF: No Isolation History: Standard Surgical History Surgical History: non-contributory Past Family/Social History Psychosocial History Where do you live? Home ETOH Use: denies use Illicit Drug Use: denies illicit drug use Functional Ability ADLs Independent: dressing, eating, toileting, bathing. Ambulation: independent Employment History Employment Unemployed Review of Systems Review of Systems Constitutional: Reports: see HPI. Exam & Diagnostic Data Last 24 Hrs of Vital Signs/I&O Vital Signs Date Time Temp Pulse Resp B/P B/P Pulse O2 O2 Flow FiO2 Mean Ox Delivery Rate 05/02 0807 95.6 97 148/88 Intake & Output 05/02 1600 05/02 0800 05/02 0000 Intake Total Output Total Balance Patient 200 lb Weight Physical Exam General Appearance Alert Skin No Rashes, No Breakdown HEENT PERRLA, EOMI, Mucous Membr. moist/pink Neck Supple, No JVD Lymphatic Axillary nl, Cervical nl Cardiovascular Regular Rate, No Murmurs Lungs Clear to Auscultation, Normal Air Movement Abdomen Normal Bowel Sounds, Soft, No Tenderness Neurological Exam Findings: not tested Cranial Nerves II through XII: Difficult to evaluate Extremities No Edema, Normal Pulses Vascular Normal Pulses, Pulses Symmetrical Last 24 Hrs of Labs/Krunal: Laboratory Tests 05/01/18 0346: Anion Gap 9, Estimated GFR > 60, BUN/Creatinine Ratio 18.6, Glucose 112 H, Calcium 10.3 H, Total Bilirubin 0.3, AST 20, ALT 24, Alkaline Phosphatase 62, Total Protein 7.1, Albumin 4.4, Globulin 2.7, Albumin/Globulin Ratio 1.6, CBC w Diff NO MAN DIFF REQ, RBC 4.41, MCV 90.8, MCH 30.6, MCHC 33.6, RDW 13.4, MPV 9.7 , Gran % 67.1, Lymphocytes % 25.6, Monocytes % 6.6, Eosinophils % 0.5, Basophils % 0.2, Absolute Granulocytes 5.0, Absolute Lymphocytes 1.9, Absolute Monocytes 0.5, Absolute Eosinophils 0, Absolute Basophils 0, Serum Alcohol < 10.0 Diagnostic Data ITS Data Unobtainable at this time Assessment/Plan As Ranked By This Provider Problem List: 1. Bipolar disorder Miscellaneous Miscellaneous Documentation Attending Case Discussed With: Morris So MD Primary Care Physician: Ovi Hankins MD Patient sees these Specialists psych. Level of Patient Care: [facility] Consults Needed: Consulting Specialty: Psychiatry Consulting Physician: Dr. So Reason for Consult: bipolar disorder Attending MD Review Statement Attending Statement Attending MD Statement: examined this patient
[2018-05-02 19:25] VITALS: BP 129/72
[2018-05-03 07:27] VITALS: BP 146/88
--- NOTE | 2018-05-03 07:40 | CP SOUTH PROGRESS NOTE PSYCH ---
Psych (Inpt) Progress Note Progress Note The patient's progress, treatment plan, and aftercare plans were discussed in the treatment team meeting this morning. Team members included: LCSWs, RNs, OTR/ L, and Psychiatrist. Vital Signs: Date Time Temp Pulse B/P 05/03 0727 98.3 88 146/88 05/02 1925 98.5 95 129/72 05/02 0807 95.6 97 148/88 Mental Status Examination Steady gait, Dressed in hospital scrubs, Calm and cooperative, Normal psychomotor activity Today, she was somewhat more animated and laughed (both appropriately and inappropriately). Talkative with mild pressure, labile affect (yesterday was sobbing in interview, today was laughing). She denied thinking of suicide today, denied thinking of violence or homicide today. She asked about discharge today, she said auditory hallucinations are much better/less frequent, less intrusive She denies feeling paranoid, she did not bring up "pills stuck in [her] throat" which was the theme of most the interview time yesterday. The patient's thoughts are a little more coherent today. Oriented to place person and time She did seem to have less difficulties with information processing today Did not seem to have short-term memory impairments Assessment: Tameka is a 62-year-old white female who presents in an acute psychotic state. Patient reports that she was compliant with the medications that she was taking. She was doing the intensive outpatient program at [facility]. Tameka is showing moderate improvement in her psychotic symptoms/signs, she is denying thoughts of suicide, violence or homicide. She is medication-compliant, no significant side effects Diagnosis: Schizoaffective disorder, bipolar type Treatment Plan Update: Continue Risperdal 2 mg twice daily Ativan as needed for anxiety and Ativan at bedtime Discontinue Remeron on admission Will resume Effexor-XR but only at 75 mg daily dose (to prevent discontinuation syndrome) She did seem to have difficulties with information processing most likely because of internal preoccupation and disorganized thinking Memory Function: Did not seem to have short-term memory impairments Assessment: 62-year-old white female who presents in an acute psychotic state. Patient reports that she was compliant with the medications that she was taking. She was doing the intensive outpatient program last time was seen by Rosa Maria Dean APRN 10 days ago Diagnosis(es): Schizoaffective disorder, bipolar type Inpatient psychiatric care with safety checks every 15 minutes Change Risperdal to 2 mg twice daily Ativan as needed and Ativan at bedtime Hold off on Remeron and Effexor for the time being Crushable tablets and put in applesauce as the patient believes that she cannot swallow certain tablets because they will get stuck in her throat DSM 5 Diagnosis(es): Schizoaffective disorder, bipolar type - Initial Tx Plan for Active Psych & Medical Conditions Treatment Plan: Inpatient psychiatric care with safety checks every 15 minutes Change Risperdal to 2 mg twice daily Ativan as needed and Ativan at bedtime Hold off on Remeron and Effexor for the time being Crushable tablets and put in applesauce as the patient believes that she cannot swallow certain tablets because they will get stuck in her throat
--- NOTE | 2018-05-03 13:13 | SOCIAL WORKER PROG NOTE PSYCH ---
See Addendum Social Work Progress Note Progress Note Drafter Assistant was able to meet with pt and she signed a release for her which was placed in her file. Pt reports she is in a good mood and has been going to groups which she reports enjoying. She reports feeling slightly "groggy", she slept "alright" and has been eating. She denies SI, HI and VH. Pt does express that she hears vioces "every once in a while" and that they were worse when she arrived due to the pills "stuck in my throat." She has a fixation on the pills that were stuck and reports her was yelling at her to cough them up. She is talkative and does lose her train of thought a couple times. She talks about returning to [facility] which she enjoyed and feels safe at home. She expresses that she would like to volunteer once discharged to pass time and make new friends to talk too.
--- NOTE | 2018-05-03 14:08 | SOCIAL WORKER PROG NOTE PSYCH ---
See Addendum Social Work Progress Note Progress Note BRIJESH Ko Taryn/Steph [facility] , [id number] - phond left detailed concurrent clinical on her voicemail, also as she requsted left cliical from admission precipitants/presentation in ED. Requested continued stay, plan for family meeting 05/06 or 05/07 with patient and her , she just signed an HAWA for her today. Asked for review to be done on 05/07. She will call [phone] with next review date.
[2018-05-03 19:28] VITALS: BP 147/71
[2018-05-04 08:02] VITALS: BP 135/85
--- NOTE | 2018-05-04 20:10 | CP SOUTH PROGRESS NOTE PSYCH ---
Psych (Inpt) Progress Note Progress Note Include the following elements, when applicable: Involvement in the active treatment of the patient with behavioral observations of the patient and the patient's response to the treatment. Review of the ongoing treatment process in the context of the treatment plan. Indication of how multi-disciplinary staff members are carrying out the treatment plan. Plans for future interventions and recommendations for revision of the treatment plan. Liaison with other physicians/providers. Progress Note: 62 years old white female patient was seen on the unit today after she had a long meeting with her and is reportedly doing better and his hopes to look forward to her discharge and continue the follow-up care in the community she was able to maintain meaningful communications denies of any thoughts to hurt self or others and likes the current medication regimen and wants to continue the treatment recommendations and is looking forward for possible discharge early next week to resume follow-up therapy possibly intensive outpatient program. Patient is able to maintain meaningful communication able to ambulate well without any unusual motor patterns noted she is alert and oriented to time place and person and appears to be of average intelligence Diagnostic impression schizoaffective disorder Recommendation continue the current medications and consider discharge after reaching her baseline functioning and then discharge and follow-up care in the outpatient program as before Dictated by Dr. Rodas thank you
[2018-05-04 20:11] VITALS: BP 155/76
[2018-05-05 07:29] VITALS: BP 117/81
--- NOTE | 2018-05-05 09:11 | CP SOUTH PROGRESS NOTE PSYCH ---
Psych (Inpt) Progress Note Progress Note Include the following elements, when applicable: Involvement in the active treatment of the patient with behavioral observations of the patient and the patient's response to the treatment. Review of the ongoing treatment process in the context of the treatment plan. Indication of how multi-disciplinary staff members are carrying out the treatment plan. Plans for future interventions and recommendations for revision of the treatment plan. Liaison with other physicians/providers. Progress Note: 62-year-old white female patient was seen this morning on the unit. She was taking her medication and was able to sit down and have a brief talk about her progress on the unit she was calm cooperative and a good eye contact and was able to ambulate without any difficulties. She is able to maintain meaningful communication and appreciates the help given to her in overcoming her depressive episode she denies of any intrusive thoughts or hallucinatory experiences and has been compliant with her medications she is alert and oriented to time place and person has good insight into her problems and likes her family helping her and her son who is a pharmacist and has grandkids low self family support. She has no thoughts to hurt herself or others and hopes to get back home and be supportive of her and family Diagnostic impression major depressive disorder with psychotic features Treatment recommendations current continue the current medications and concur with the team's treatment plan and follow-up care at the outpatient clinic when stable Dictated by , thank you
[2018-05-05 19:48] VITALS: BP 139/76
[2018-05-06 07:52] VITALS: BP 140/77
--- NOTE | 2018-05-06 09:13 | CP SOUTH PROGRESS NOTE PSYCH ---
Psych (Inpt) Progress Note Progress Note I reviewed Dr. Rodas's notes for the weekend of 05/04 and 2017. The patient's progress, treatment plan, and aftercare plans were discussed in the treatment team meeting this morning. Team members included: LCSWs, RNs, Activities Therapist, and Psychiatrist. Vital Signs Date Time Temp Pulse B/P 05/06 0752 96.3 80 140/77 05/05 1948 98.4 84 139/76 Mental Status Examination Alert and oriented, calm and cooperative, Normal psychomotor activity. animated and laughed (both appropriately and inappropriately), less talkative, labile affect, denied thinking of suicide today, denied thinking of violence or homicide today. still has some auditory hallucinations (but they are less less frequent, less intrusive). She denies feeling paranoid, patient's thoughts are a little more coherent today. some difficulties with information processing today, Did not seem to have short-term memory impairments Assessment: Tameka is a 62-year-old white female who presents in an acute psychotic state. Patient reports that she was compliant with the medications that she was taking. She was doing the intensive outpatient program at [facility]. Tameka is showing some improvement in her psychotic symptoms/signs, denying thoughts of suicide, violence or homicide. She is medication-compliant, no significant side effects Diagnosis: Schizoaffective disorder, bipolar type Treatment Plan Update: Start Abilify 5 mg daily Reduce Risperdal to 1 mg in AM and 2 mg at bedtime Change Ativan at bedtime to klonopin 1.5 mg at bedtime Continue Effexor-XR 75 mg daily dose (to prevent discontinuation syndrome) Treatment Plan Update: Continue Risperdal 2 mg twice daily Ativan as needed for anxiety and Ativan at bedtime Discontinue Remeron on admission Will resume Effexor-XR but only at 75 mg daily dose (to prevent discontinuation syndrome)
--- NOTE | 2018-05-06 16:38 | SOCIAL WORKER PROG NOTE PSYCH ---
Social Work Progress Note Progress Note Dr. So, Lexii Bonner (PA student) and this teletypewriter installer met with the patient and her , Teodoro, for a family meeting. Teodoro shared observations that the patient had been experiencing decreased sleep "a couple days prior to admission. " He also shared that the patient forgot to take her medications for a couple of days, which the patient confirmed. Patient reported that she believed that the "pills were stuck in my throat." Teodoro shared that he took his to a walk in clinic about one year ago due to complaints of the pills being stuck in her throat. They were referred to an ENT, however, patient did not want to follow through on further testing. She began to complain of the pills being stuck in her throat about 1 week ago. She stated, "It felt like I was snorting my meds. " Patient discussed her AH of "various people" and shared that she experienced blindness and blurred vision this weekend. Patient and her discussed triggers for the patient's symptoms and feeling that these needed to be addressed prior to her returning home. Dr. So addressed medications, including associated questions and concerns. This teletypewriter installer inquired about patients interest of going to a program that offers housing as well as IOP after discharge from [facility]. Patient and her agreed to discuss this further and inform this teletypewriter installer of their decision tomorrow, however, did not feel that they would likely agree to it.
[2018-05-06 20:16] VITALS: BP 134/80
[2018-05-07 07:43] VITALS: BP 126/83
--- NOTE | 2018-05-07 08:15 | CP SOUTH PROGRESS NOTE PSYCH ---
Psych (Inpt) Progress Note Progress Note The patient's progress, treatment plan, and aftercare plans were discussed in the treatment team meeting this morning. Team members included: LCSWs, RNs, Activities Therapist, and Psychiatrist. Vital Signs: Date Time Temp Pulse B/P B/P Pulse 05/07 0743 96.6 81 126/83 05/06 2016 99.2 88 134/80 Mental Status Examination: Tameka was alert and oriented, calm and cooperative, and showed normal psychomotor activity. She was not pressured and not talkative. He affect is reactive and less labile. She denied thinking of suicide, denied thinking of violence or homicide today. She reported that auditory hallucinations are less frequent and less intrusive. She denied feeling paranoid. Tameka seemed a little more coherent although she still has some difficulties with the thought process. She showed slightly better information processing today Assessment: Tameka is a 62-year-old white female who was admitted on 05/01/2018 in an acute psychotic state. Patient reports that she was compliant with the medications that she was taking. She was doing the intensive outpatient program at [facility]. Tameka is showing some improvement in her psychotic symptoms/signs, denying thoughts of suicide, violence or homicide. Diagnosis: Schizoaffective disorder, bipolar type Treatment Plan Update: Increase Abilify to 10 mg daily Risperdal changed yesterday to 3 mg at bedtime klonopin 1.5 mg at bedtime Continue Effexor-XR 75 mg daily dose (to prevent discontinuation syndrome)
--- NOTE | 2018-05-07 15:54 | SOCIAL WORKER PROG NOTE PSYCH ---
Social Work Progress Note Progress Note Vm left with clinical for Taryn ([phone], ext. [phone]) requesting continued authorization for inpatient stay with an anticipated discharge date of Sunday.
--- NOTE | 2018-05-07 16:11 | SOCIAL WORKER PROG NOTE PSYCH ---
Social Work Progress Note Progress Note This writer editor met with patient. She described her mood as "good" and felt that the family meeting with her yesterday went well. She stated that she and her discussed going to an IOP/[facility] with housing program, which she is not interested in doing. Patient stated that she is agreeable to going to [facility] if the treatment team feels that it is needed. Patient denied SI/HI/ hallucinations. She stated that she is not interested in a visiting nurse. Patient reported improvement in symptoms, stating, "my mind is clear" which she believes is a "miracle from God, the staff here and my ."
[2018-05-07 19:54] VITALS: BP 130/81
[2018-05-08 07:38] VITALS: BP 116/73
--- NOTE | 2018-05-08 10:40 | CP SOUTH PROGRESS NOTE PSYCH ---
Psych (Inpt) Progress Note Progress Note The patient's progress, treatment plan, and aftercare plans were discussed in the treatment team meeting this morning. Team members included: LCSWs, RNs, OTR/ L, and Psychiatrist. Vital Signs: Date Time Temp Pulse B/P B/P 05/08 0738 98.5 90 116/73 05/07 1954 98.7 81 130/81 Mental Status: As of this morning, Tameka was still experiencing 2 voices (one of her sister and one of an ex-neighbor). She said the voices were encouraging, positive and non-threatening. She was alert and oriented to time, place, and person. She was calm and cooperative. She has periods of giddiness and periods of looking pre-occupied. She denied thinking of suicide, denied thinking of violence or homicide today. She denied feeling paranoid. Tameka seemed a little more coherent although she still has some difficulties with the thought process. She showed slightly better information processing today Assessment: Tameka is a 62-year-old white female who was admitted on 05/01/2018 in an acute psychotic state. Patient reports that she was compliant with the medications that she was taking. She was doing the intensive outpatient program at [facility]. Tameka is still experiencing some auditory hallucinations and thought disorder (but with some improvement) has been denying thoughts of suicide, violence or homicide. Diagnosis: Schizoaffective disorder, bipolar type Treatment Plan Update: Increase Risperdal back to 4 mg at bedtime Continue Abilify 10 mg daily Continue Klonopin 1.5 mg at bedtime Continue Effexor-XR 75 mg daily dose (to prevent discontinuation syndrome)
--- NOTE | 2018-05-08 13:00 | SOCIAL WORKER PROG NOTE PSYCH ---
Social Work Progress Note Progress Note This freelance copywriter met with patient. She reported a "good" mood and denied SI/HI/VH. She stated that she experienced AH earlier today while she was getting into the shower in which she stated that she heard her neighbor's voice stating "we'll be in to visit you." Patient denied any continued AH after hearing this comment. Patient is agreeable to going to [facility] and anticipating discharge on Sunday. She expressed interest in volunteering at the [facility] as well and talked about this with a smile on her face. Patient is agreeable to meeting with MAYANK Pascal hospital intern later today.
--- NOTE | 2018-05-08 13:31 | SOCIAL WORKER PROG NOTE PSYCH ---
Social Work Progress Note Progress Note Received vm from Taryn at [facility] ([phone], ext. [phone]) 2 units authorized Next review date: 05/09/18 Requesting the following information for the 05/09 review: -have long acting injectables been considered? -any outpatient collateral?
--- NOTE | 2018-05-08 15:55 | SOCIAL WORKER PROG NOTE PSYCH ---
Social Work Progress Note Progress Note Psychiatric CHW Note E-mailed Susana and Surekha at 3:50pm requesting IOP intake appt. Lubna Melendez (Tish)
[2018-05-08 19:53] VITALS: BP 143/85
[2018-05-09 08:14] VITALS: BP 135/76
--- NOTE | 2018-05-09 08:14 | CP SOUTH PROGRESS NOTE PSYCH ---
Psych (Inpt) Progress Note Progress Note The patient's progress, treatment plan, and aftercare plans were discussed in the treatment team meeting this morning. Team members included: LCSWs, RNs, OTR/ L, and Psychiatrist. Vital Signs: Date Time Temp Pulse B/P B/P Pulse O2 O2 Flow FiO2 05/09 0814 96.6 97 135/76 05/08 1953 98.4 93 143/85 Mental Status: Tameka denied experiencing hallucinations today. She was alert and oriented to time, place, and person. She was calm and cooperative. She has periods of giddiness and periods of looking pre-occupied. She denied thinking of suicide, denied thinking of violence or homicide today. She denied feeling paranoid. Tameka seemed a little more coherent although she still has some difficulties with the thought process. She showed slightly better information processing today Assessment: Tameka is a 62-year-old white female who was admitted on 05/01/2018 in an acute psychotic state. Patient reports that she was compliant with the medications that she was taking. She was doing the intensive outpatient program at [facility]. Tameka has made slow and gradual improvement so far. Today was the first day she denied hallucinations She did report feeling foggy and therefore her Klonopin will be dropped from 1-1 /2 mg to 1 mg at bedtime Diagnosis: Schizoaffective disorder, bipolar type Treatment Plan Update: Reduce Klonopin to 1 mg at bedtime Continue Risperdal 4 mg at bedtime Continue Abilify 10 mg daily Continue Effexor-XR 75 mg daily for the time being
--- NOTE | 2018-05-09 08:36 | SOCIAL WORKER PROG NOTE PSYCH ---
Social Work Progress Note Progress Note Psychiatric CHW Note Pt has a [facility] IOP intake scheduled for 11:30am on 05.10.18. Lubna Melendez (Tish)
--- NOTE | 2018-05-09 16:27 | SOCIAL WORKER PROG NOTE PSYCH ---
Social Work Progress Note Progress Note 1:1 with pt today. Pt shared "I'm not confused and I feel good today" Pt was alert and oriented. Pt denied SI/HI, no evidence of psychosis. Bright affect and smiled appropriately as she shared her experience in group. Pt reports she was thinking positive thoughts and she was looking forward to going home. Pt said she remembered what happened at home with her that lead to her hospitalization. "I was hallucinating and felt I was choking on my pills". Pt appears to have some insight and feels that her medications are making her feel better and at this time she does not have any symptoms of hallucination. Plan for discharged home discussed with pt. Pt is in agreement to attend [facility] and is hopeful about discharge on Sunday05/10/18.
--- NOTE | 2018-05-09 17:23 | SOCIAL WORKER PROG NOTE PSYCH ---
Social Work Progress Note Progress Note Insurance Authorization Review: A Voice Message was left for Taryn Amaral at [employer] Ext. [id number] Provided follow up information on medication treatment; changes made to medication dosage by Dr. So. Outpatient referral completed for IOP and a date for discharge.
[2018-05-09 19:53] VITALS: BP 120/87
[2018-05-10 07:42] VITALS: BP 168/86
[2018-05-10] MEDS ORDERED: EFFEXOR XR75 M1 PO (08:27)
[2018-05-10] MEDS ORDERED: RISPERDAL4 M1 PO (08:27)
[2018-05-10] MEDS ORDERED: ABILIFY10 M1 PO (08:27)
[2018-05-10] MEDS ORDERED: KLONOPIN0.5 M1 PO (08:27)
--- NOTE | 2018-05-10 08:29 | Patient Discharge Instructions ---
Psych Discharge Inst General Discharge Information Reason for Admission: hallucinations, paranoia Psy Discharge Primary Diag+ Schizoaffective Disorder Summary Tests/Major Procedures Lab Amylase 47 U/L 01/26/13 0437 Cholesterol 208 MG/DL H 08/12/16 0435 Cholesterol/HDL Ratio 3 % 08/12/16 0435 Glucose 112 mg/dL H 05/01/18 0346 HDL Cholesterol 62 mg/dL H 08/12/16 0435 LDL Cholesterol, Calc 131 mg/dL H 08/12/16 0435 Lipase 102 U/L 01/26/13 0437 Triglycerides 75 mg/dL 08/12/16 0435 Vitamin B12 718 pg/mL 01/30/13 0630 Studies Pending at DC: none Patient Instructions Contact Information Your Psychiatrist on [facility] was Morris So MD * If you are experiencing an emergency related to this hospitalization, please call [phone] to contact the treating psychiatrist or the psychiatrist-on- call. * To Request a copy of your medical records, please contact the Medical Records Department at [phone]. * To request results of studies pending at the time of discharge, please call [phone]. * Continue your Medications until directed to stop by your Healthcare provider. General Medication Information Please continue to take your new medications and your continued home medications , unless otherwise indicated on your discharge medication list, or unless directed by your MD or GROUP FITNESS DEPARTMENT HEAD to stop them. Special Instructions Diet Regular Activity Normal - Tobacco Use Treatment Offered Post DC Medications Offered: Not Applicable Post DC Tobacco Treatment Plan: Not Applicable - EtOH/Drug Use D/O Treatment Offered Post DC Medications Offered: NA-No EtOH/Drug Use D/O Post DC EtOH/SubAbuse [place] Plan: NA-No EtOH/Drug Use D/O Metabolic Screening Patient on a neuroleptic(s) . Enter below results for Hemoglobin A1C, and lipid panel if obtained during the last 365 days. BMI: 32.200 Blood Pressure: 168/86 Laboratory Results From [facility] (If applicable): Lab Cholesterol 208 MG/DL H 08/12/16 0435 Cholesterol/HDL Ratio 3 % 08/12/16 0435 HDL Cholesterol 62 mg/dL H 08/12/16 0435 LDL Cholesterol, Calc 131 mg/dL H 08/12/16 0435 Triglycerides 75 mg/dL 08/12/16 0435 Advance Directives Does the Patient have Medical Advance Directives Yes/Copy not provided Does Pt have Psychiatric Advance Directives? No/Refused further info Does Patient have a Designated Surrogate Decision Maker: No Information About Psychiatric Advance Directives Provided? Unable to Comprehend Discharge Plan Post Hospital Treatment Plan: [facility]-IOP
--- NOTE | 2018-05-10 09:00 | SOCIAL WORKER PROG NOTE PSYCH ---
Social Work Progress Note Progress Note Met with Tameka this morning. She was packing her things to discharge. She denied SI/HI, no VH. She stated she did hear a voice but it was a "gentle voice. " She denied any further thoughts about her ex-neighbor. She plans to attend [facility] has an intake 05/10/18 at 11:30am. TC - Tameka's - Fish - informed him that Tameka is discharging and going to [facility] today 11:30am for an intake. He can pick her up at [facility]. He was happy to hear she is doing better and will meet her at the [facility]. Spoke with Taryn/[employer] [id number] - she provided [facility] AUTH# [id number] (11 units) - 05/13/18-05/27/18.
--- NOTE | 2018-05-10 11:03 | CP SOUTH PROGRESS NOTE PSYCH ---
Psych (Inpt) Progress Note Progress Note The patient's progress, treatment plan, and aftercare plans were discussed in the treatment team meeting this morning. Team members included: LCSWs, RNs, OTR/ L, and Psychiatrist. Vital Signs: Vital Signs Date Time Temp Pulse Resp B/P B/P Pulse O2 O2 Flow FiO2 05/10 0742 98.3 84 168/86 05/09 1953 99.4 98 120/87 Mental Status: Tameka reported experiencing some audio hallucinations yesterday/evening hours but not this morning. (sames 2 voices: ex-neighbor, Angela, and pt's sister). She was alert and oriented to time, place, and person. She was calm and cooperative. She still looks pre-occupied. She denied thinking of suicide, denied thinking of violence or homicide today. She denied feeling paranoid. Tameka still has some difficulties with the thought process but all-in-all cohernet. She showed slightly better information processing today Assessment: Tameka is a 62-year-old white female who was admitted on 05/01/2018 in an acute psychotic state. Patient reports that she was compliant with the medications. She was doing the intensive outpatient program at [facility]. Tameka has made slow and gradual improvement so far. She has been denying thoughts of suicide since admission Diagnosis: Schizoaffective disorder, bipolar type Treatment Plan Update: D/C Home
--- NOTE | 2018-05-10 12:04 | DISCHARGE SUMMARY REPORT-PSYCH ---
Visit Information Visit Dates/Diagnosis' Admission Date: 05/01/18 Discharge Date: 05/10/18 Reason for Admission: hallucinations, paranoia Psy Discharge Primary Diag: Schizoaffective Disorder Hospital Course Significant Lab Findings: Lab Amylase 47 U/L 01/26/13 0437 Cholesterol 208 MG/DL H 08/12/16 0435 Cholesterol/HDL Ratio 3 % 08/12/16 0435 Glucose 112 mg/dL H 05/01/18 0346 HDL Cholesterol 62 mg/dL H 08/12/16 0435 LDL Cholesterol, Calc 131 mg/dL H 08/12/16 0435 Lipase 102 U/L 01/26/13 0437 Triglycerides 75 mg/dL 08/12/16 0435 Vitamin B12 718 pg/mL 01/30/13 0630 Course Complications: Patient did not have any complications while she was on the inpatient psychiatric unit. Consultations: MD Statement: I have seen and personally examined BEV ESTRELLA and documented this H&P. The patient is a 62 year old F who presented with a patient stated chief complaint of being delusional. Source of Information: patient, family, EMS Exam Limitations: unable to give history History of Present Illness: 62-year-old white female with history of bipolar disease as been off the medication for several days. Being increasingly delusional thinking with tangential thoughts. Was brought in by ambulance after the hospital called the ambulance to bring her in to be evaluated. Having bizarre behavior was inappropriate laugh. When I saw her she was calm in bed after being medicated Allergies/Medications Allergies: Coded Allergies: bupropion (From WELLBUTRIN) (unknown 02/20/17) epinephrine (UNKNOWN 02/19/17) fluoxetine (UNKNOWN 02/19/17) nitrofurantoin (UNKNOWN 02/19/17) Home Med list Alprazolam (Xanax) 0.25 MG TABLET 0.5 MG PO 2200 anxiety at bedtime Mirtazapine (Remeron) 15 MG TABLET 7.5 MG PO 2200 sleep induction/anxiety Risperidone (Risperdal) 4 MG TABLET 4 MG PO 2200 clarify thinking/augmentation Venlafaxine HCl (Effexor XR) 75 MG CAP.ER.24H 225 MG PO 1700 anti-depressant Compliance With Home Meds: POOR Past History Travel History Traveled to [place] past 21 day No Medical History Neurological: NONE EENT: NONE Cardiovascular: varicose veins on legs. Respiratory: NONE Gastrointestinal: NONE Hepatic: NONE Renal: NONE Musculoskeletal: NONE Psychiatric: bipolar disease, psychosis Endocrine: borderline DM, diet-controlled. 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 Home ETOH Use: denies use Illicit Drug Use: denies illicit drug use Functional Ability ADLs Independent: dressing, eating, toileting, bathing. Ambulation: independent Employment History Employment Unemployed Review of Systems Review of Systems Constitutional: Reports: see HPI. Exam & Diagnostic Data Last 24 Hrs of Vital Signs/I&O Vital Signs Date Time Temp Pulse Resp B/P B/P Pulse O2 O2 Flow FiO2 Mean Ox Delivery Rate 05/02 0807 95.6 97 148/88 Intake & Output 05/02 1600 05/02 0800 05/02 0000 Intake Total Output Total Balance Patient 200 lb Weight Physical Exam General Appearance Alert Skin No Rashes, No Breakdown HEENT PERRLA, EOMI, Mucous Membr. moist/pink Neck Supple, No JVD Lymphatic Axillary nl, Cervical nl Cardiovascular Regular Rate, No Murmurs Lungs Clear to Auscultation, Normal Air Movement Abdomen Normal Bowel Sounds, Soft, No Tenderness Neurological Exam Findings: not tested Cranial Nerves II through XII: Difficult to evaluate Extremities No Edema, Normal Pulses Vascular Normal Pulses, Pulses Symmetrical Last 24 Hrs of Labs/Krunal: Laboratory Tests 05/01/18 0346: Anion Gap 9, Estimated GFR > 60, BUN/Creatinine Ratio 18.6, Glucose 112 H, Calcium 10.3 H, Total Bilirubin 0.3, AST 20, ALT 24, Alkaline Phosphatase 62, Total Protein 7.1, Albumin 4.4, Globulin 2.7, Albumin/Globulin Ratio 1.6, CBC w Diff NO MAN DIFF REQ, RBC 4.41, MCV 90.8, MCH 30.6, MCHC 33.6, RDW 13.4, MPV 9.7 , Gran % 67.1, Lymphocytes % 25.6, Monocytes % 6.6, Eosinophils % 0.5, Basophils % 0.2, Absolute Granulocytes 5.0, Absolute Lymphocytes 1.9, Absolute Monocytes 0.5, Absolute Eosinophils 0, Absolute Basophils 0, Serum Alcohol < 10.0 Diagnostic Data ITS Data Unobtainable at this time Assessment/Plan As Ranked By This Provider Problem List: 1. Bipolar disorder Miscellaneous Miscellaneous Documentation Attending Case Discussed With: Morris So MD Primary Care Physician: Ovi Hankins MD Patient sees these Specialists psych. Level of Patient Care: [facility] Consults Needed: Consulting Specialty: Psychiatry Consulting Physician: Dr. So Reason for Consult: bipolar disorder Attending MD Review Statement Attending Statement Attending Statement: examined this patient DICTATED BY: Lucio King MD DATE/TIME DICTATED:05/02/181838 ELEVATOR BUILDER:NAT DATE/TIME TRANSCRIBED:05/02/181838 REPORT NUMBER:[id number] CONFIDENTIAL, DO NOT COPY WITHOUT APPROPRIATE AUTHORIZATION. <Electronically signed by Lucio King MD> 05/02/18 Allergies: Coded Allergies: bupropion (From WELLBUTRIN) (unknown 02/20/17) epinephrine (UNKNOWN 02/19/17) fluoxetine (UNKNOWN 02/19/17) nitrofurantoin (UNKNOWN 02/19/17) Hospital Course/TX Response: 05/02/2018: Impression and Plan: 62-year-old white female who presents in an acute psychotic state. Patient reports that she was compliant with the medications that she was taking. She was doing the intensive outpatient program last time was seen by Rosa Maria Dean APRN 10 days ago Diagnosis(es): Schizoaffective disorder, bipolar type Initial Tx Plan for Active Psych & Medical Conditions: Inpatient psychiatric care with safety checks every 15 minutes Change Risperdal to 2 mg twice daily Ativan as needed and Ativan at bedtime Hold off on Remeron and Effexor for the time being Crushable tablets and put in applesauce as the patient believes that she cannot swallow certain tablets because they will get stuck in her throat. 05/03/2018: Continue Risperdal 2 mg twice daily Ativan as needed for anxiety and Ativan at bedtime Discontinue Remeron on admission Will resume Effexor-XR but only at 75 mg daily dose (to prevent discontinuation syndrome) 05/04/2018: Recommendation continue the current medications and consider discharge after reaching her baseline functioning and then discharge and follow-up care in the outpatient program as before 05/05/2018: No change in patient's medications. 05/06/2018: Start Abilify 5 mg daily Reduce Risperdal to 1 mg in AM and 2 mg at bedtime Change Ativan at bedtime to klonopin 1.5 mg at bedtime Continue Effexor-XR 75 mg daily dose (to prevent discontinuation syndrome) 05/07/2018: Increase Abilify to 10 mg daily Risperdal changed yesterday to 3 mg at bedtime klonopin 1.5 mg at bedtime 05/08/2018: Risperdal was increased back to 4 mg at bedtime because of ongoing hallucinations. 05/09/2018: Continue same medications. 05/10/2018: The patient's progress, treatment plan, and aftercare plans were discussed in the treatment team meeting this morning. Team members included: LCSWs, RNs, OTR/ L, and Psychiatrist. Vital Signs: Date Time Temp Pulse Resp B/P B/P Pulse O2 O2 Flow FiO2 05/10 0742 98.3 84 168/86 Mental Status: Bev reported experiencing some audio hallucinations yesterday/evening hours but not this morning. (sames 2 voices: ex-neighbor, Angela, and pt's sister). She was alert and oriented to time, place, and person. She was calm and cooperative. She still looks pre-occupied. She denied thinking of suicide, denied thinking of violence or homicide today. She denied feeling paranoid. Bev still has some difficulties with the thought process but all-in-all cohernet. She showed slightly better information processing today Assessment: Bev is a 62-year-old white female who was admitted on 05/01/2018 in an acute psychotic state. Patient reports that she was compliant with the medications. She was doing the intensive outpatient program at [facility]. Bev has made slow and gradual improvement so far. She has been denying thoughts of suicide since admission Diagnosis: Schizoaffective disorder, bipolar type Treatment Plan Update: D/C Home Discharge HBIPS - Tobacco Use Treatment Offered Post DC Medications Offered: Not Applicable Post DC Tobacco Treatment Plan: Not Applicable - EtOH/Drug Use D/O Treatment Offered Post DC Medications Offered: NA-No EtOH/Drug Use D/O Post DC EtOH/SubAbuse TX Plan: NA-No EtOH/Drug Use D/O Metabolic Screening - Screen if on a Neuroleptic Medication - Metabolic screening should include: - Blood Pressure, BMI, Glucose or Hgb A1c, & a - Lipid profile from within the past 365 days. Metabolic Screening Patient on a neuroleptic(s) . Enter below results for Hemoglobin A1C, and lipid panel if obtained during the last 365 days. BMI: 32.200 Blood Pressure: 168/86 Laboratory Results From [facility] (If applicable): Lab Amylase 47 U/L 01/26/13 0437 Cholesterol 208 MG/DL H 08/12/16 0435 Cholesterol/HDL Ratio 3 % 08/12/16 0435 Glucose 112 mg/dL H 05/01/18 0346 HDL Cholesterol 62 mg/dL H 08/12/16 0435 LDL Cholesterol, Calc 131 mg/dL H 08/12/16 0435 Lipase 102 U/L 01/26/13 0437 Triglycerides 75 mg/dL 08/12/16 0435 Vitamin B12 718 pg/mL 01/30/13 0630 Discharge Instructions General Discharge Information Multiple Neuroleptics: Patient is being cross titrated from risperidone to Abilify Discharge Diet Regular Discharge Activity Normal DC Disposition: Home Referrals Ordered Referrals Provider Referral 05/10/18 For Groups: [[facility]] [address] Intake 05/10/18 at 11:30am Prescriptions Stop taking the following medications: Mirtazapine (Remeron) 15 MG TABLET ORAL 2200 Qty = 14 Venlafaxine HCl (Effexor XR) 75 MG CAP.ER.24H ORAL 5 PM Qty = 42 Alprazolam (Xanax) 0.25 MG TABLET ORAL 2200 Qty = 14 Continue taking these medications: Risperidone (Risperdal) 4 MG TABLET 4 Milligram ORAL 2200 Qty = 14 Comments: Last Taken:05/09/18 Time:10PM This prescription has been renewed Start taking the following new medications: Clonazepam (Klonopin) 0.5 MG TABLET 1.5 Milligram ORAL AT BEDTIME Qty = 45 No Refills Comments: Last Taken:05/09/18 Time:10PM Venlafaxine HCl (Effexor XR) 75 MG CAP.ER.24H 75 Milligram ORAL DAILY Qty = 14 No Refills Comments: Last Taken:05/10/18 Time:8AM Aripiprazole (Abilify) 10 MG TABLET 10 Milligram ORAL DAILY Qty = 14 No Refills Comments: Last Taken:05/10/18 Time:8AM Studies Pending at Discharge none Copies To: Rosa Maria Dean APRN
--- NOTE | 2018-05-10 14:23 | SOCIAL WORKER PROG NOTE PSYCH ---
Social Work Progress Note Faxed Referral(s) Referred To: [facility] Transition of Care Documents sent: Health Summary Faxed to: [facility] Fax #: [phone] Faxed by: Lacey Fay LCSW Date faxed: 05/10/18 Time Faxed: [phone]
--- NOTE | 2018-05-10 18:12 | SOCIAL WORKER PROG NOTE PSYCH ---
Social Work Progress Note Progress Note BRIJESH Centeno/[employer] [id number] - left discharge clinical - Auth #: [id number]
--- NOTE | 2018-05-10 18:32 | SOCIAL WORKER PROG NOTE PSYCH ---
Social Work Progress Note Progress Note Faxed IOP transfer - 05/10/18 6:30pm
== END 2018-05-10 11:36 | DRG 885 ==
LOC: ERH → CP SOUTH 16:37 → ERHI 16:37 → EDBEDREQSVC 17:08 → ENTRNSPT 17:22 → EDTRNSPTSTS 17:27 → EDTRNSPT 17:27 → CP SOUTH 18:09 → CMPTRNSPT 18:13 → CP SOUTH 05-02 10:02
PROVIDERS: Emergency Medicine
DX: F25.9 Schizoaffective disorder, unspecified (principal)
CPT/HCPCS: 80307; G0480; J0401; Q2036